=== PATIENT | female | born 1955 | race Caucasian/White ===

== ENCOUNTER 2017-12-07 13:37 | Inpatient (IN) | payer OTHER ==
[~2017-12-07] VITALS: Ht 167.6 cm; Wt 132.1 kg
[~2017-12-07 13:37] MED LIST: ALBU90OI INH; ASPI81CH PO; Bactrim Ds Tab1 EACH PO; CEFP200 PO; CEPH500 PO; Cleocin HCl300 MG PO; DOCU100 PO; Estradiol0.5 MG PO; FAMO20 PO; HORMONE REPLACEMENT PO; K-Dur20 MEQ PO; LACT5TL TOP; LEVFLO500 PO; LEVO750 PO; LEVSOD150 PO; Lasix40 MG PO; Miralax17 GM PO; Mupirocin22 GM TOP; Norco 5-325 Ta1 EACH PO; POTCHL20ER PO; Pepcid20 MG PO; Prednisone20 MG PO; SKIN TREATMENT225 GM TOP; SULTRIDS PO; SYNTHROID25 MCG PO; TIROSINT25 MCG PO; Tylenol325 MG PO; UNNA-FLEX1 EACH TOP; Vibramycin100 MG PO
[2017-12-08 06:08] LABS: BASOPHILS ABSOLUTE AUTO 0.03 K/mm3 (0.00-0.23); BASOPHILS PERCENT AUTO 1 % (0-2); EOSINOPHILS PERCENT AUTO 2 % (0-6); Hematocrit 30.9 % (33.0-51.0); Hemoglobin 9.8 g/dL (11.5-16.0); IMMATURE GRAN ABSOLUTE AUTO 0.01 K/mm3 (0.00-0.10); IMMATURE GRAN PERCENT AUTO 0 % (0-1); LYMPHOCYTES ABSOLUTE AUTO 1.28 K/mm3 (0.84-5.20); LYMPHOCYTES PERCENT AUTO 25 % (21-46); MONOCYTES ABSOLUTE AUTO 0.76 K/mm3 (0.16-1.47); MONOCYTES PERCENT AUTO 15 % (4-13); Mean Corpuscular HGB 29.4 pg (26.0-34.0); Mean Corpuscular HGB Conc 31.7 g/dL (31.5-36.5); Mean Platelet Volume 11.4 fL (9.1-12.4); NEUTROPHILS ABSOLUTE AUTO 3.04 K/mm3 (1.96-9.15); NEUTROPHILS PERCENT AUTO 58 % (41-73); Platelet Count 264 K/mm3 (150-400); RDW Coefficient Variation 15.9 % (11.7-14.2); RDW Standard Deviation 52.7 fL (35.1-46.3); Red Blood Cell Count 3.33 M/mm3 (3.80-5.20); White Blood Cell Count 5.22 K/mm3 (4.00-11.30)
[2017-12-08 06:10] LABS: Mean Corpuscular Volume 93 fL (80-100)
[2017-12-08 06:37] LABS: Anion Gap 8 mmol/L (6-16); Blood Urea Nitrogen 16 mg/dL (8-24); Bun/Creatinine Ratio 21.7 (12.0-20.0); CO2, Blood 28 mmol/L (21-32); Calcium, Blood 8.3 mg/dL (8.5-10.1); Chloride, Blood 111 mmol/L (98-108); Creatinine, Blood 0.74 mg/dL (0.40-1.00); Glomerular Filtration Rate >60 (60-); Glucose, Blood 93 mg/dL (70-99); Potassium, Blood 3.5 mmol/L (3.5-5.5); Sodium, Blood 147 mmol/L (136-145)
[2017-12-10 05:15] LABS: Hematocrit 30.5 % (33.0-51.0); Hemoglobin 9.5 g/dL (11.5-16.0); Mean Corpuscular HGB 28.1 pg (26.0-34.0); Mean Corpuscular HGB Conc 31.1 g/dL (31.5-36.5); Platelet Count 252 K/mm3 (150-400); RDW Coefficient Variation 15.8 % (11.7-14.2); Red Blood Cell Count 3.38 M/mm3 (3.80-5.20); White Blood Cell Count 4.17 K/mm3 (4.00-11.30)
[2017-12-10 05:16] LABS: Mean Corpuscular Volume 90 fL (80-100)
[2017-12-10 05:33] LABS: Anion Gap 7 mmol/L (6-16); Blood Urea Nitrogen 16 mg/dL (8-24); Bun/Creatinine Ratio 20.3 (12.0-20.0); CO2, Blood 29 mmol/L (21-32); Calcium, Blood 8.7 mg/dL (8.5-10.1); Chloride, Blood 107 mmol/L (98-108); Creatinine, Blood 0.79 mg/dL (0.40-1.00); Glomerular Filtration Rate >60 (60-); Glucose, Blood 102 mg/dL (70-99); Potassium, Blood 3.5 mmol/L (3.5-5.5); Sodium, Blood 143 mmol/L (136-145)
[2017-12-12] MEDS ORDERED: Synthroid25 MCG PO (11:01)
[2017-12-12] MEDS ORDERED: FAMO10 PO (11:02)
[2017-12-12] MEDS ORDERED: Lasix40 MG PO (11:02)
[2017-12-12] MEDS ORDERED: Metamucil Smooth1 EA PO (11:03)
[2017-12-12] MEDS ORDERED: Acidophilus La100 GM PO (11:03)
[2017-12-12] MEDS ORDERED: SULFATRIM 800-120 ML PO (11:04)
== END 2017-12-12 13:30 | disposition home health service (06) | DRG 603 ==
LOC: ER 13:37 → MEDS 18:53 → ENPENDDIS 12-12 10:15 → MEDS 12-12 13:30
PROVIDERS: Family Medicine; Internal Medicine
PROC: 3E0234Z Introduction of Serum, Toxoid and Vaccine into Muscle, Percutaneous Approach (ICD-10-PCS; principal; 2017-12-08)
DX: L03.116 Cellulitis of left lower limb (principal); E66.01 Morbid (severe) obesity due to excess calories; E87.0 Hyperosmolality and hypernatremia; Z68.42 Body mass index [BMI] 45.0-49.9, adult; L03.115 Cellulitis of right lower limb; L89.622 Pressure ulcer of left heel, stage 2; Z23 Encounter for immunization; I87.8 Other specified disorders of veins; I89.0 Lymphedema, not elsewhere classified; K59.00 Constipation, unspecified; I87.2 Venous insufficiency (chronic) (peripheral); E89.0 Postprocedural hypothyroidism; D64.9 Anemia, unspecified
CPT/HCPCS: 36415; 73650; 80048; 80053; 82947; 83036; 83605; 84443; 85025; 85027; 86141; 87070; 87077; 87186; 87205; 93970; 96372; 96374; 97110; 97116; 97162; 97166; 97535; 99284; 99285; G8978; G8979; G8987; G8988; J0696; J1650; J1940; J2765; J7030

== ENCOUNTER → 2018-03-05 | Outpatient (CLI) | payer OTHER ==
[~2018-03-05] MED LIST changes: +Acidophilus La100 GM PO; +FAMO10 PO; +Metamucil Smooth1 EA PO; +SULFATRIM 800-120 ML PO; +Synthroid25 MCG PO
== END ==
LOC: LAB SHORT 15:10 → LAB 15:10
DX: L03.115 Cellulitis of right lower limb (principal)
CPT/HCPCS: 87070; 87205

== ENCOUNTER 2018-03-17 10:13 | Inpatient (IN) | payer OTHER ==
[~2018-03-17] VITALS: Ht 167.6 cm; Wt 122.8 kg
[2018-03-17 11:55] LABS: BASOPHILS ABSOLUTE AUTO 0.03 K/mm3 (0.00-0.23); BASOPHILS PERCENT AUTO 1 % (0-2); EOSINOPHILS ABSOLUTE AUTO 0.11 K/mm3 (0.00-0.68); EOSINOPHILS PERCENT AUTO 2 % (0-6); Hematocrit 39.1 % (33.0-51.0); Hemoglobin 12.6 g/dL (11.5-16.0); IMMATURE GRAN ABSOLUTE AUTO 0.02 K/mm3 (0.00-0.10); IMMATURE GRAN PERCENT AUTO 0 % (0-1); LYMPHOCYTES PERCENT AUTO 26 % (21-46); MONOCYTES ABSOLUTE AUTO 0.77 K/mm3 (0.16-1.47); MONOCYTES PERCENT AUTO 12 % (4-13); Mean Corpuscular HGB 27.8 pg (26.0-34.0); Mean Corpuscular HGB Conc 32.2 g/dL (31.5-36.5); Mean Corpuscular Volume 86 fL (80-100); NEUTROPHILS ABSOLUTE AUTO 3.69 K/mm3 (1.96-9.15); NEUTROPHILS PERCENT AUTO 59 % (41-73); Platelet Count 301 K/mm3 (150-400); RDW Coefficient Variation 15.7 % (11.7-14.2); RDW Standard Deviation 49.2 fL (35.1-46.3); Red Blood Cell Count 4.53 M/mm3 (3.80-5.20); White Blood Cell Count 6.22 K/mm3 (4.00-11.30)
[2018-03-17 12:10] LABS: Alanine Aminotransfer (ALT/SGP 35 U/L (12-78); Albumin, Blood 3.7 g/dL (3.4-5.0); Albumin/Globulin Ratio 0.9 (0.8-1.8); Alk Phos 105 U/L (50-136); Anion Gap 7 mmol/L (6-16); Aspartate Aminotrans (AST/SGOT 18 U/L (12-37); Bilirubin, Total 0.4 mg/dL (0.1-1.0); Blood Urea Nitrogen 21 mg/dL (8-24); Bun/Creatinine Ratio 24.4 (12.0-20.0); CO2, Blood 34 mmol/L (21-32); Calcium, Blood 9.5 mg/dL (8.5-10.1); Chloride, Blood 100 mmol/L (98-108); Creatinine, Blood 0.86 mg/dL (0.40-1.00); Globulin, Blood 4.3 g/dL (2.2-4.0); Glomerular Filtration Rate >60 (60-); Glucose, Blood 98 mg/dL (70-99); Potassium, Blood 2.7 mmol/L (3.5-5.5); Sodium, Blood 141 mmol/L (136-145)
[2018-03-17] MEDS ORDERED: POTCHL20ER PO ×2 (13:11→13:13)
[2018-03-18 05:18] LABS: Anion Gap 6 mmol/L (6-16); Blood Urea Nitrogen 17 mg/dL (8-24); Bun/Creatinine Ratio 21.6 (12.0-20.0); CO2, Blood 33 mmol/L (21-32); Calcium, Blood 8.6 mg/dL (8.5-10.1); Chloride, Blood 103 mmol/L (98-108); Creatinine, Blood 0.79 mg/dL (0.40-1.00); Glomerular Filtration Rate >60 (60-); Glucose, Blood 111 mg/dL (70-99); Potassium, Blood 2.8 mmol/L (3.5-5.5); Sodium, Blood 142 mmol/L (136-145)
[2018-03-19 03:35] LABS: Vancomycin, Trough 15.2 ug/mL (5.0-10.0)
[2018-03-20] MEDS ORDERED: LACT5TL TOP (09:35)
[2018-03-20] MEDS ORDERED: DOXY100 PO (09:38)
== END 2018-03-20 10:51 | disposition home or self-care (01) | DRG 603 ==
LOC: ER 10:13 → MEDS 13:59 → ENPENDDIS 03-20 09:00 → MEDS 03-20 10:51
PROVIDERS: Family Medicine; Physician Assistant
DX: L03.115 Cellulitis of right lower limb (principal); Z68.41 Body mass index [BMI] 40.0-44.9, adult; I89.0 Lymphedema, not elsewhere classified; E03.9 Hypothyroidism, unspecified; E11.9 Type 2 diabetes mellitus without complications; Z79.4 Long term (current) use of insulin; I87.8 Other specified disorders of veins
CPT/HCPCS: 36415; 80048; 80053; 80202; 83605; 84132; 85025; 99285; C9113; J1650; J3370; J7050

== ENCOUNTER 2018-06-27 12:06 | Observation (INO) | payer OTHER, SELFPAY ==
[~2018-06-27] VITALS: Ht 167.6 cm; Wt 127.9 kg
[~2018-06-27 12:06] MED LIST changes: +DOXY100 PO
[2018-06-27 13:27] LABS: BASOPHILS ABSOLUTE AUTO 0.04 K/mm3 (0.00-0.23); BASOPHILS PERCENT AUTO 1 % (0-2); EOSINOPHILS ABSOLUTE AUTO 0.11 K/mm3 (0.00-0.68); EOSINOPHILS PERCENT AUTO 2 % (0-6); Hematocrit 36.9 % (33.0-51.0); Hemoglobin 11.7 g/dL (11.5-16.0); IMMATURE GRAN ABSOLUTE AUTO 0.01 K/mm3 (0.00-0.10); IMMATURE GRAN PERCENT AUTO 0 % (0-1); LYMPHOCYTES ABSOLUTE AUTO 1.22 K/mm3 (0.84-5.20); LYMPHOCYTES PERCENT AUTO 25 % (21-46); MONOCYTES ABSOLUTE AUTO 0.64 K/mm3 (0.16-1.47); MONOCYTES PERCENT AUTO 13 % (4-13); Mean Corpuscular HGB 28.8 pg (26.0-34.0); Mean Corpuscular HGB Conc 31.7 g/dL (31.5-36.5); Mean Corpuscular Volume 91 fL (80-100); Mean Platelet Volume 10.9 fL (9.1-12.4); NEUTROPHILS ABSOLUTE AUTO 2.81 K/mm3 (1.96-9.15); NEUTROPHILS PERCENT AUTO 58 % (41-73); Platelet Count 257 K/mm3 (150-400); RDW Coefficient Variation 15.1 % (11.7-14.2); RDW Standard Deviation 50.5 fL (35.1-46.3); Red Blood Cell Count 4.06 M/mm3 (3.80-5.20); White Blood Cell Count 4.83 K/mm3 (4.00-11.30)
[2018-06-27 13:48] LABS: Alanine Aminotransfer (ALT/SGP 29 U/L (12-78); Albumin/Globulin Ratio 0.8 (0.8-1.8); Alk Phos 96 U/L (50-136); Anion Gap 6 mmol/L (6-16); Aspartate Aminotrans (AST/SGOT 21 U/L (12-37); Bilirubin, Total 0.4 mg/dL (0.1-1.0); Blood Urea Nitrogen 20 mg/dL (8-24); Bun/Creatinine Ratio 29.9 (12.0-20.0); CO2, Blood 30 mmol/L (21-32); Calcium, Blood 8.7 mg/dL (8.5-10.1); Chloride, Blood 107 mmol/L (98-108); Creatinine, Blood 0.67 mg/dL (0.40-1.00); Globulin, Blood 3.8 g/dL (2.2-4.0); Glomerular Filtration Rate >60 (60-); Glucose, Blood 93 mg/dL (70-99); Potassium, Blood 3.6 mmol/L (3.5-5.5); Sodium, Blood 143 mmol/L (136-145); Total Protein, Blood 6.8 g/dL (6.4-8.2)
[2018-06-28 05:45] LABS: Anion Gap 7 mmol/L (6-16); Blood Urea Nitrogen 22 mg/dL (8-24); Bun/Creatinine Ratio 26.9 (12.0-20.0); CO2, Blood 33 mmol/L (21-32); Calcium, Blood 9.5 mg/dL (8.5-10.1); Chloride, Blood 101 mmol/L (98-108); Creatinine, Blood 0.82 mg/dL (0.40-1.00); Glomerular Filtration Rate >60 (60-); Glucose, Blood 102 mg/dL (70-99); Potassium, Blood 3.1 mmol/L (3.5-5.5); Sodium, Blood 141 mmol/L (136-145)
== END 2018-06-28 15:42 | disposition home or self-care (01) ==
LOC: ER 12:06 → MEDS 12:07
PROVIDERS: Emergency Medicine; Internal Medicine
DX: I89.0 Lymphedema, not elsewhere classified (principal); I87.8 Other specified disorders of veins; E03.9 Hypothyroidism, unspecified; E11.9 Type 2 diabetes mellitus without complications; E66.01 Morbid (severe) obesity due to excess calories
CPT/HCPCS: 36415; 80048; 80053; 83605; 84145; 85025; 96372; 96374; 96375; 96376; 97110; 97161; 99284-25; G0378; G8978; G8979; G8980; J1650; J1940

== ENCOUNTER → 2018-07-30 | Outpatient (CLI) | payer OTHER, SELFPAY ==
[~2018-07-30] MED LIST changes: +HYDR1TAB94 PO
[2018-07-30 17:02] LABS: BASOPHILS ABSOLUTE AUTO 0.04 K/mm3 (0.00-0.23); BASOPHILS PERCENT AUTO 1 % (0-2); EOSINOPHILS ABSOLUTE AUTO 0.09 K/mm3 (0.00-0.68); EOSINOPHILS PERCENT AUTO 1 % (0-6); Hematocrit 38.3 % (33.0-51.0); Hemoglobin 12.7 g/dL (11.5-16.0); IMMATURE GRAN ABSOLUTE AUTO 0.01 K/mm3 (0.00-0.10); IMMATURE GRAN PERCENT AUTO 0 % (0-1); LYMPHOCYTES ABSOLUTE AUTO 1.49 K/mm3 (0.84-5.20); LYMPHOCYTES PERCENT AUTO 23 % (21-46); MONOCYTES ABSOLUTE AUTO 0.65 K/mm3 (0.16-1.47); MONOCYTES PERCENT AUTO 10 % (4-13); Mean Corpuscular HGB 29.9 pg (26.0-34.0); Mean Corpuscular HGB Conc 33.2 g/dL (31.5-36.5); Mean Corpuscular Volume 90 fL (80-100); Mean Platelet Volume 10.9 fL (9.1-12.4); NEUTROPHILS ABSOLUTE AUTO 4.25 K/mm3 (1.96-9.15); NEUTROPHILS PERCENT AUTO 65 % (41-73); Platelet Count 279 K/mm3 (150-400); RDW Coefficient Variation 14.5 % (11.7-14.2); RDW Standard Deviation 47.6 fL (35.1-46.3); Red Blood Cell Count 4.25 M/mm3 (3.80-5.20); White Blood Cell Count 6.53 K/mm3 (4.00-11.30)
[2018-07-30 17:17] LABS: Alanine Aminotransfer (ALT/SGP 23 U/L (12-78); Albumin, Blood 3.6 g/dL (3.4-5.0); Albumin/Globulin Ratio 0.9 (0.8-1.8); Alk Phos 112 U/L (40-126); Anion Gap 6 mmol/L (6-16); Aspartate Aminotrans (AST/SGOT 17 U/L (12-37); Bilirubin, Total 0.4 mg/dL (0.1-1.0); Blood Urea Nitrogen 18 mg/dL (8-24); Bun/Creatinine Ratio 20.5 (12.0-20.0); CO2, Blood 32 mmol/L (21-32); Calcium, Blood 9.8 mg/dL (8.5-10.1); Chloride, Blood 103 mmol/L (98-108); Creatinine, Blood 0.88 mg/dL (0.40-1.00); Globulin, Blood 4.1 g/dL (2.2-4.0); Glomerular Filtration Rate >60 (60-); Glucose, Blood 96 mg/dL (70-99); Potassium, Blood 3.4 mmol/L (3.5-5.5); Sodium, Blood 141 mmol/L (136-145); Total Protein, Blood 7.7 g/dL (6.4-8.2)
== END | disposition home or self-care (01) ==
LOC: LAB SHORT 16:59 → LAB EV 16:59
PROVIDERS: Physician Assistant
DX: R60.9 Edema, unspecified (principal)
CPT/HCPCS: 80053; 85025

== ENCOUNTER → 2018-08-02 | Outpatient (CLI) | payer OTHER, SELFPAY | LOC: LAB SHORT 17:59 → LAB EV 17:59 | DX: L03.119 Cellulitis of unspecified part of limb (principal) | CPT/HCPCS: 87070; 87205 ==

== ENCOUNTER 2018-08-05 13:26 | Emergency (ER) | payer OTHER, SELFPAY ==
[~2018-08-05] VITALS: Ht 167.6 cm; Wt 113.4 kg
[~2018-08-05 13:26] MED LIST changes: -HYDR1TAB94 PO
[2018-08-05 14:45] LABS: BASOPHILS ABSOLUTE AUTO 0.04 K/mm3 (0.00-0.23); BASOPHILS PERCENT AUTO 1 % (0-2); EOSINOPHILS ABSOLUTE AUTO 0.13 K/mm3 (0.00-0.68); EOSINOPHILS PERCENT AUTO 2 % (0-6); Hematocrit 38.9 % (33.0-51.0); Hemoglobin 12.3 g/dL (11.5-16.0); IMMATURE GRAN ABSOLUTE AUTO 0.01 K/mm3 (0.00-0.10); IMMATURE GRAN PERCENT AUTO 0 % (0-1); LYMPHOCYTES PERCENT AUTO 24 % (21-46); MONOCYTES ABSOLUTE AUTO 0.59 K/mm3 (0.16-1.47); MONOCYTES PERCENT AUTO 11 % (4-13); Mean Corpuscular HGB 29.8 pg (26.0-34.0); Mean Corpuscular HGB Conc 31.6 g/dL (31.5-36.5); Mean Platelet Volume 11.1 fL (9.1-12.4); NEUTROPHILS ABSOLUTE AUTO 3.42 K/mm3 (1.96-9.15); NEUTROPHILS PERCENT AUTO 62 % (41-73); Platelet Count 290 K/mm3 (150-400); RDW Coefficient Variation 14.2 % (11.7-14.2); RDW Standard Deviation 48.8 fL (35.1-46.3); Red Blood Cell Count 4.13 M/mm3 (3.80-5.20); White Blood Cell Count 5.49 K/mm3 (4.00-11.30)
[2018-08-05 14:46] LABS: Mean Corpuscular Volume 94 fL (80-100)
[2018-08-05 15:09] LABS: Alanine Aminotransfer (ALT/SGP 26 U/L (12-78); Albumin, Blood 3.3 g/dL (3.4-5.0); Albumin/Globulin Ratio 0.8 (0.8-1.8); Alk Phos 109 U/L (50-136); Anion Gap 5 mmol/L (6-16); Aspartate Aminotrans (AST/SGOT 20 U/L (12-37); Bilirubin, Total 0.3 mg/dL (0.1-1.0); Blood Urea Nitrogen 16 mg/dL (8-24); Bun/Creatinine Ratio 22.3 (12.0-20.0); CO2, Blood 30 mmol/L (21-32); Calcium, Blood 8.8 mg/dL (8.5-10.1); Chloride, Blood 109 mmol/L (98-108); Creatinine, Blood 0.72 mg/dL (0.40-1.00); Globulin, Blood 4.2 g/dL (2.2-4.0); Glomerular Filtration Rate >60 (60-); Glucose, Blood 80 mg/dL (70-99); Potassium, Blood 3.7 mmol/L (3.5-5.5); Sodium, Blood 144 mmol/L (136-145); Total Protein, Blood 7.5 g/dL (6.4-8.2)
[2018-08-05] MEDS ORDERED: LEVFLO500 PO (15:52)
[2018-08-05] MEDS ORDERED: POTCHL20ER PO (17:40)
[2018-08-05] MEDS ORDERED: HYDR1TAB94 PO (17:40)
[2018-08-05] MEDS ORDERED: Lasix40 MG PO (17:40)
== END 2018-08-05 18:13 | disposition home or self-care (01) ==
LOC: ER 13:26
PROVIDERS: Emergency Medicine
DX: I89.0 Lymphedema, not elsewhere classified (principal); Z91.048 Other nonmedicinal substance allergy status; Z79.899 Other long term (current) drug therapy
CPT/HCPCS: 36415; 80053; 83880; 84145; 85025; 86140; 99284

== ENCOUNTER 2018-10-31 00:20 | Day surgery (SDC) | payer OTHER ==
[~2018-10-31 00:20] MED LIST changes: +HYDR1TAB94 PO
== END 2018-10-31 22:54 | disposition home or self-care (01) ==
LOC: WOUND 00:20
DX: L97.812 Non-pressure chronic ulcer of other part of right lower leg with fat layer exposed (principal); I87.2 Venous insufficiency (chronic) (peripheral); I89.0 Lymphedema, not elsewhere classified

== ENCOUNTER 2018-11-07 15:00 | Day surgery (SDC) | payer OTHER | END 2018-11-07 23:01 | disposition home or self-care (01) | LOC: WOUND 15:00 | DX: L97.812 Non-pressure chronic ulcer of other part of right lower leg with fat layer exposed (principal); I87.2 Venous insufficiency (chronic) (peripheral); I89.0 Lymphedema, not elsewhere classified; E66.01 Morbid (severe) obesity due to excess calories ==

== ENCOUNTER 2018-11-14 14:57 | Day surgery (SDC) | payer OTHER | END 2018-11-14 22:44 | disposition home or self-care (01) | LOC: WOUND 14:57 | DX: L97.812 Non-pressure chronic ulcer of other part of right lower leg with fat layer exposed (principal); I87.2 Venous insufficiency (chronic) (peripheral); I89.0 Lymphedema, not elsewhere classified ==

== ENCOUNTER 2018-11-21 15:00 | Day surgery (SDC) | payer OTHER | END 2018-11-21 22:50 | disposition home or self-care (01) | LOC: WOUND 15:00 | DX: L97.812 Non-pressure chronic ulcer of other part of right lower leg with fat layer exposed (principal); D23.71 Other benign neoplasm of skin of right lower limb, including hip; I87.2 Venous insufficiency (chronic) (peripheral); I89.0 Lymphedema, not elsewhere classified; E66.01 Morbid (severe) obesity due to excess calories ==

== ENCOUNTER 2018-11-28 00:19 | Day surgery (SDC) | payer OTHER | END 2018-11-28 23:59 | disposition home or self-care (01) | LOC: WOUND 00:19 | DX: Z48.00 Encounter for change or removal of nonsurgical wound dressing (principal); L97.812 Non-pressure chronic ulcer of other part of right lower leg with fat layer exposed; I87.2 Venous insufficiency (chronic) (peripheral); I89.0 Lymphedema, not elsewhere classified | CPT/HCPCS: G0463 ==

== ENCOUNTER 2018-12-05 15:00 | Day surgery (SDC) | payer OTHER | END 2018-12-05 22:52 | disposition home or self-care (01) | LOC: WOUND 15:00 | DX: L97.812 Non-pressure chronic ulcer of other part of right lower leg with fat layer exposed (principal); I87.2 Venous insufficiency (chronic) (peripheral); I89.0 Lymphedema, not elsewhere classified; E66.01 Morbid (severe) obesity due to excess calories | CPT/HCPCS: G0463 ==

== ENCOUNTER 2018-12-09 09:03 | Day surgery (SDC) | payer OTHER | END 2018-12-09 22:55 | disposition home or self-care (01) | LOC: WOUND 09:03 | DX: L97.812 Non-pressure chronic ulcer of other part of right lower leg with fat layer exposed (principal); I87.2 Venous insufficiency (chronic) (peripheral); I89.0 Lymphedema, not elsewhere classified; E66.01 Morbid (severe) obesity due to excess calories | CPT/HCPCS: 87070; 87205 ==

== ENCOUNTER 2018-12-12 15:15 | Day surgery (SDC) | payer OTHER | END 2018-12-12 23:17 | disposition home or self-care (01) | LOC: WOUND 15:15 | DX: L97.812 Non-pressure chronic ulcer of other part of right lower leg with fat layer exposed (principal); I87.2 Venous insufficiency (chronic) (peripheral); I89.0 Lymphedema, not elsewhere classified ==

== ENCOUNTER 2018-12-19 10:15 | Day surgery (SDC) | payer OTHER | END 2018-12-19 22:58 | disposition home or self-care (01) | LOC: WOUND 10:15 | PROC: 2W1QX6Z Compression of Right Lower Leg using Pressure Dressing (ICD-10-PCS; principal; 2018-12-19) | DX: L97.812 Non-pressure chronic ulcer of other part of right lower leg with fat layer exposed (principal); I87.2 Venous insufficiency (chronic) (peripheral); I89.0 Lymphedema, not elsewhere classified ==

== ENCOUNTER 2018-12-26 00:26 | Day surgery (SDC) | payer OTHER | END 2018-12-26 22:45 | disposition home or self-care (01) | LOC: WOUND 00:26 | DX: L97.812 Non-pressure chronic ulcer of other part of right lower leg with fat layer exposed (principal); I87.2 Venous insufficiency (chronic) (peripheral); I89.0 Lymphedema, not elsewhere classified ==

== ENCOUNTER 2019-01-02 00:11 | Day surgery (SDC) | payer OTHER | END 2019-01-02 22:43 | disposition home or self-care (01) | LOC: WOUND 00:11 | DX: L97.812 Non-pressure chronic ulcer of other part of right lower leg with fat layer exposed (principal); I87.2 Venous insufficiency (chronic) (peripheral); I89.0 Lymphedema, not elsewhere classified ==

== ENCOUNTER 2019-01-30 00:28 | Day surgery (SDC) | payer OTHER | END 2019-01-30 12:00 | disposition home or self-care (01) | LOC: WOUND 00:28 | DX: I89.0 Lymphedema, not elsewhere classified (principal); L97.812 Non-pressure chronic ulcer of other part of right lower leg with fat layer exposed; I87.2 Venous insufficiency (chronic) (peripheral); D64.9 Anemia, unspecified; J45.909 Unspecified asthma, uncomplicated; E78.5 Hyperlipidemia, unspecified; E66.01 Morbid (severe) obesity due to excess calories; Z68.42 Body mass index [BMI] 45.0-49.9, adult | CPT/HCPCS: 87070; 87205; G0463 ==

== ENCOUNTER 2019-02-06 00:09 | Day surgery (SDC) | payer OTHER | END 2019-02-06 23:00 | disposition home or self-care (01) | LOC: WOUND 00:09 | DX: I87.2 Venous insufficiency (chronic) (peripheral) (principal); I89.0 Lymphedema, not elsewhere classified; L97.819 Non-pressure chronic ulcer of other part of right lower leg with unspecified severity; L97.812 Non-pressure chronic ulcer of other part of right lower leg with fat layer exposed; J45.909 Unspecified asthma, uncomplicated; D64.9 Anemia, unspecified; E78.5 Hyperlipidemia, unspecified; E66.01 Morbid (severe) obesity due to excess calories; Z68.42 Body mass index [BMI] 45.0-49.9, adult ==

== ENCOUNTER 2019-02-13 01:05 | Day surgery (SDC) | payer OTHER | END 2019-02-13 22:47 | disposition home or self-care (01) | LOC: WOUND 01:05 | DX: I83.018 Varicose veins of right lower extremity with ulcer other part of lower leg (principal); L97.812 Non-pressure chronic ulcer of other part of right lower leg with fat layer exposed; E66.01 Morbid (severe) obesity due to excess calories; I89.0 Lymphedema, not elsewhere classified; E78.5 Hyperlipidemia, unspecified; Z68.42 Body mass index [BMI] 45.0-49.9, adult ==

== ENCOUNTER 2019-02-20 10:14 | Day surgery (SDC) | payer OTHER | END 2019-02-20 23:50 | disposition home or self-care (01) | LOC: WOUND 10:14 | DX: I87.2 Venous insufficiency (chronic) (peripheral) (principal); L97.812 Non-pressure chronic ulcer of other part of right lower leg with fat layer exposed; I89.0 Lymphedema, not elsewhere classified; E66.01 Morbid (severe) obesity due to excess calories; E78.5 Hyperlipidemia, unspecified; J45.909 Unspecified asthma, uncomplicated | CPT/HCPCS: G0463 ==

== ENCOUNTER 2019-02-27 10:15 | Day surgery (SDC) | payer OTHER | END 2019-02-27 22:45 | disposition home or self-care (01) | LOC: WOUND 10:15 | DX: I87.2 Venous insufficiency (chronic) (peripheral) (principal); L97.812 Non-pressure chronic ulcer of other part of right lower leg with fat layer exposed; I89.0 Lymphedema, not elsewhere classified; J45.909 Unspecified asthma, uncomplicated; E66.01 Morbid (severe) obesity due to excess calories; E78.5 Hyperlipidemia, unspecified; Z68.42 Body mass index [BMI] 45.0-49.9, adult ==

== ENCOUNTER 2019-03-05 17:38 | Emergency (ER) | payer OTHER ==
[~2019-03-05] VITALS: Ht 167.6 cm; Wt 113.4 kg
[2019-03-05] MEDS ORDERED: Pedi-Dri 100,0060 GM TOP (22:01)
== END 2019-03-05 22:49 | disposition home or self-care (01) ==
LOC: ER 17:38
DX: B37.2 Candidiasis of skin and nail (principal); Z88.8 Allergy status to other drugs, medicaments and biological substances; Z79.899 Other long term (current) drug therapy
CPT/HCPCS: 99282

== ENCOUNTER 2019-03-06 10:21 | Day surgery (SDC) | payer OTHER ==
[~2019-03-06 10:21] MED LIST changes: +Pedi-Dri 100,0060 GM TOP
== END 2019-03-06 23:22 | disposition home or self-care (01) ==
LOC: WOUND 10:21
DX: I89.0 Lymphedema, not elsewhere classified (principal); L97.812 Non-pressure chronic ulcer of other part of right lower leg with fat layer exposed; I87.2 Venous insufficiency (chronic) (peripheral); J45.909 Unspecified asthma, uncomplicated; E78.5 Hyperlipidemia, unspecified; D64.9 Anemia, unspecified; E66.01 Morbid (severe) obesity due to excess calories

== ENCOUNTER 2019-03-13 10:27 | Day surgery (SDC) | payer OTHER | END 2019-03-13 22:45 | disposition home or self-care (01) | LOC: WOUND 10:27 | DX: I89.0 Lymphedema, not elsewhere classified (principal); L97.812 Non-pressure chronic ulcer of other part of right lower leg with fat layer exposed; I87.2 Venous insufficiency (chronic) (peripheral); D64.9 Anemia, unspecified; J45.909 Unspecified asthma, uncomplicated ==

== ENCOUNTER 2019-03-20 00:15 | Day surgery (SDC) | payer OTHER | END 2019-03-20 22:50 | disposition home or self-care (01) | LOC: WOUND 00:15 | DX: L97.812 Non-pressure chronic ulcer of other part of right lower leg with fat layer exposed (principal); I89.0 Lymphedema, not elsewhere classified; I87.2 Venous insufficiency (chronic) (peripheral); E78.5 Hyperlipidemia, unspecified; D64.9 Anemia, unspecified; J45.909 Unspecified asthma, uncomplicated; E66.01 Morbid (severe) obesity due to excess calories; Z68.42 Body mass index [BMI] 45.0-49.9, adult ==

== ENCOUNTER 2019-03-27 00:22 | Day surgery (SDC) | payer OTHER | END 2019-03-27 22:45 | disposition home or self-care (01) | LOC: WOUND 00:22 | DX: I89.0 Lymphedema, not elsewhere classified (principal); L97.812 Non-pressure chronic ulcer of other part of right lower leg with fat layer exposed; I87.2 Venous insufficiency (chronic) (peripheral); J45.909 Unspecified asthma, uncomplicated; E78.5 Hyperlipidemia, unspecified; D64.9 Anemia, unspecified; E66.01 Morbid (severe) obesity due to excess calories; Z68.42 Body mass index [BMI] 45.0-49.9, adult ==

== ENCOUNTER 2019-04-03 00:45 | Day surgery (SDC) | payer OTHER | END 2019-04-03 23:20 | disposition home or self-care (01) | LOC: WOUND 00:45 | DX: L97.811 Non-pressure chronic ulcer of other part of right lower leg limited to breakdown of skin (principal); I89.0 Lymphedema, not elsewhere classified; I87.2 Venous insufficiency (chronic) (peripheral); D36.9 Benign neoplasm, unspecified site; D64.9 Anemia, unspecified; J45.909 Unspecified asthma, uncomplicated | CPT/HCPCS: G0463 ==

== ENCOUNTER 2019-04-10 00:21 | Day surgery (SDC) | payer OTHER | END 2019-04-10 23:12 | disposition home or self-care (01) | LOC: WOUND 00:21 | DX: L97.821 Non-pressure chronic ulcer of other part of left lower leg limited to breakdown of skin (principal); I89.0 Lymphedema, not elsewhere classified; I87.2 Venous insufficiency (chronic) (peripheral) | CPT/HCPCS: G0463 ==

== ENCOUNTER 2020-05-10 19:45 | Inpatient (IN) | payer OTHER ==
[~2020-05-10] VITALS: Ht 167.6 cm; Wt 126.8 kg
[2020-05-10] MEDS ORDERED: EUTHYROX25 MC1 PO (19:55)
[2020-05-10 20:07] LABS: BASOPHILS ABSOLUTE AUTO 0.03 K/mm3 (0.00-0.23); BASOPHILS PERCENT AUTO 0 % (0-2); EOSINOPHILS ABSOLUTE AUTO 0.03 K/mm3 (0.00-0.68); EOSINOPHILS PERCENT AUTO 0 % (0-6); Hemoglobin 15.8 g/dL (11.5-16.0); IMMATURE GRAN ABSOLUTE AUTO 0.03 K/mm3 (0.00-0.10); IMMATURE GRAN PERCENT AUTO 0 % (0-1); LYMPHOCYTES ABSOLUTE AUTO 0.89 K/mm3 (0.84-5.20); LYMPHOCYTES PERCENT AUTO 8 % (21-46); MONOCYTES ABSOLUTE AUTO 0.92 K/mm3 (0.16-1.47); MONOCYTES PERCENT AUTO 8 % (4-13); Mean Corpuscular HGB 30.8 pg (26.0-34.0); Mean Corpuscular HGB Conc 31.6 g/dL (31.5-36.5); Mean Corpuscular Volume 98 fL (80-100); Mean Platelet Volume 10.8 fL (9.1-12.4); NEUTROPHILS ABSOLUTE AUTO 9.76 K/mm3 (1.96-9.15); NEUTROPHILS PERCENT AUTO 84 % (41-73); Platelet Count 321 K/mm3 (150-400); RDW Coefficient Variation 14.2 % (11.7-14.2); RDW Standard Deviation 51.9 fL (35.1-46.3); Red Blood Cell Count 5.13 M/mm3 (3.80-5.20); White Blood Cell Count 11.66 K/mm3 (4.00-11.30)
[2020-05-10 20:25] LABS: Alanine Aminotransfer (ALT/SGP 32 U/L (12-78); Albumin, Blood 3.3 g/dL (3.4-5.0); Albumin/Globulin Ratio 0.7 (0.8-1.8); Alk Phos 129 U/L (50-136); Anion Gap 6 mmol/L (6-16); Aspartate Aminotrans (AST/SGOT 27 U/L (12-37); Bilirubin, Total 0.8 mg/dL (0.1-1.0); Blood Urea Nitrogen 27 mg/dL (8-24); Bun/Creatinine Ratio 31.7 (12.0-20.0); CO2, Blood 29 mmol/L (21-32); Calcium, Blood 9.9 mg/dL (8.5-10.1); Chloride, Blood 104 mmol/L (98-108); Creatinine, Blood 0.85 mg/dL (0.40-1.00); Globulin, Blood 4.8 g/dL (2.2-4.0); Glomerular Filtration Rate >60 (60-); Glucose, Blood 142 mg/dL (70-99); Potassium, Blood 4.3 mmol/L (3.5-5.5); Sodium, Blood 139 mmol/L (136-145); Total Protein, Blood 8.1 g/dL (6.4-8.2)
--- NOTE | 2020-05-10 22:59 | NUR ---
transfer report from [facility] ORTHOPEDIC PHYSICIAN on 65 year old Female being admitted with SBO to DR Issac Mcbride for possible surgury to tx. NPO no ng tube placed yet by ORTHOPEDIC PHYSICIAN said PT discussing tx with Son? PT had abd CT in ER showed SBO from ventral hernia. 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 Will place in contact isolation swab for MRSA as no recent screens seen in EMR. Await admission with NPO status, IVF & ambriz management.
[2020-05-10] MEDS ORDERED: Synthroid200 MCG PO (23:56)
[2020-05-11 04:35] LABS: BASOPHILS ABSOLUTE AUTO 0.03 K/mm3 (0.00-0.23); BASOPHILS PERCENT AUTO 0 % (0-2); EOSINOPHILS ABSOLUTE AUTO 0.03 K/mm3 (0.00-0.68); EOSINOPHILS PERCENT AUTO 0 % (0-6); Hematocrit 42.3 % (33.0-51.0); Hemoglobin 13.5 g/dL (11.5-16.0); IMMATURE GRAN ABSOLUTE AUTO 0.04 K/mm3 (0.00-0.10); IMMATURE GRAN PERCENT AUTO 0 % (0-1); LYMPHOCYTES PERCENT AUTO 6 % (21-46); MONOCYTES ABSOLUTE AUTO 1.11 K/mm3 (0.16-1.47); MONOCYTES PERCENT AUTO 9 % (4-13); Mean Corpuscular HGB 31.3 pg (26.0-34.0); Mean Corpuscular HGB Conc 31.9 g/dL (31.5-36.5); Mean Corpuscular Volume 98 fL (80-100); Mean Platelet Volume 10.7 fL (9.1-12.4); NEUTROPHILS ABSOLUTE AUTO 9.91 K/mm3 (1.96-9.15); NEUTROPHILS PERCENT AUTO 84 % (41-73); Platelet Count 267 K/mm3 (150-400); RDW Coefficient Variation 14.5 % (11.7-14.2); RDW Standard Deviation 52.7 fL (35.1-46.3); Red Blood Cell Count 4.32 M/mm3 (3.80-5.20); White Blood Cell Count 11.82 K/mm3 (4.00-11.30)
[2020-05-11 04:51] LABS: Anion Gap 4 mmol/L (6-16); Blood Urea Nitrogen 24 mg/dL (8-24); Bun/Creatinine Ratio 35.8 (12.0-20.0); CO2, Blood 29 mmol/L (21-32); Calcium, Blood 8.5 mg/dL (8.5-10.1); Chloride, Blood 108 mmol/L (98-108); Creatinine, Blood 0.67 mg/dL (0.40-1.00); Glomerular Filtration Rate >60 (60-); Glucose, Blood 124 mg/dL (70-99); Potassium, Blood 4.4 mmol/L (3.5-5.5); Sodium, Blood 141 mmol/L (136-145)
--- NOTE | 2020-05-11 04:59 | NUR ---
PT admitted with SBO caused by large reducable ventra;l hernia. NPO NG # 14 fr placed to low intermittant sx with 600 ml thick brown gi contents initally. decreased abd pain with NG placement. Medicated x 1 for abd pain 8/ with helpful effect. PT has hx of MRSA & has bilat le weeping wounds present on admission. PT had wrapped bilat le in chuk prior to admission, Paged DR Hopkins for orders for wound care & swab to rule out MRSA. Await orders.
--- NOTE | 2020-05-11 08:01 | NUR ---
CALL TO DR. SCOTT. CALL MADE TO DR. SCOTT. DR. SCOTT STATED HE DOES NOT WANT A HOSPITALIST TO MANAGE MEDS. TO CALL BACK AFTER SURGERY TO CLARIFY HOME MEDS. WILL CONTINUE TO MONITOR.
--- NOTE | 2020-05-11 12:46 | NUR ---
PT TAKEN TO DAY SURGERY PT TAKEN TO DAY SURGERY BY ADRI FREEMAN. PT SON UPDATED ON PT CONDITION AND THAT SHE IS GOING TO SURGERY. PT RULED OUT NEG FOR COVID. BELONGINGS PACKED UP IN ROOM. AWAITING NEW ROOM ASSIGNMENT.
--- NOTE | 2020-05-11 12:58 | NUR ---
INTO [facility] VIA [facility]. History, Chart, Medications and Allergies reviewed before start of procedure.Patient confirms NPO status and agrees with scheduled surgery. Surgical site prepped with 2% Chlorhexidine cloth wipe. Lungs clear T/O to Auscultation. NG TUBE PATENT AND HOOKED TO INTERMITTENT SUCTION. BILATERAL DRESSINGS IN PLACE TO LOWER EXTREMITIES RELATED TO WOUNDS.
--- NOTE | 2020-05-11 14:10 | NUR ---
REPORT GIVEN TO VALERY RUSH
--- NOTE | 2020-05-11 14:18 | NUR ---
REPORT GIVEN TO SURGIAL NURSE, MARK TSANG.
--- NOTE | 2020-05-11 15:47 | NUR ---
PT JESUSITA UPDATED ON NEW ROOM ASSIGNMENT, 209.
--- NOTE | 2020-05-11 17:47 | NUR ---
05/11/20 174 Azucena Hernandez STOCKINGS NOT ON PT DUE TO OPEN BILATERAL LEG WOUNDS
[2020-05-12 04:16] LABS: BASOPHILS ABSOLUTE AUTO 0.03 K/mm3 (0.00-0.23); BASOPHILS PERCENT AUTO 0 % (0-2); EOSINOPHILS ABSOLUTE AUTO 0.02 K/mm3 (0.00-0.68); EOSINOPHILS PERCENT AUTO 0 % (0-6); Hematocrit 44.3 % (33.0-51.0); Hemoglobin 13.4 g/dL (11.5-16.0); IMMATURE GRAN ABSOLUTE AUTO 0.02 K/mm3 (0.00-0.10); IMMATURE GRAN PERCENT AUTO 0 % (0-1); LYMPHOCYTES ABSOLUTE AUTO 0.51 K/mm3 (0.84-5.20); LYMPHOCYTES PERCENT AUTO 6 % (21-46); MONOCYTES ABSOLUTE AUTO 0.96 K/mm3 (0.16-1.47); MONOCYTES PERCENT AUTO 10 % (4-13); Mean Corpuscular HGB 30.9 pg (26.0-34.0); Mean Corpuscular HGB Conc 30.2 g/dL (31.5-36.5); Mean Corpuscular Volume 102 fL (80-100); Mean Platelet Volume 10.7 fL (9.1-12.4); NEUTROPHILS ABSOLUTE AUTO 7.72 K/mm3 (1.96-9.15); NEUTROPHILS PERCENT AUTO 83 % (41-73); Platelet Count 255 K/mm3 (150-400); RDW Coefficient Variation 14.6 % (11.7-14.2); RDW Standard Deviation 55.9 fL (35.1-46.3); Red Blood Cell Count 4.34 M/mm3 (3.80-5.20); White Blood Cell Count 9.26 K/mm3 (4.00-11.30)
--- NOTE | 2020-05-12 04:22 | NUR ---
SHIFT SUMMARY POD 1 EX LAP WITH LYSIS OF ADHESIONS AND HERNIA REPAIR WITH MESH PT AA0X4, PT REPORTS FEELING BLOATED T/O SHIFT WITH SOME DIFFICULTY BREATHING R/T BLOATING. SATS ABOVE 92% DURING SHIFT. TITRATED DOWN TO 2L VIA NC FROM 4L. MEDICATION CHANGED PT STATES BETTER PAIN RELIEF WITH DILAUDID. STILL C/O BLOATED FEELING. NG ON WITH LIS, PT REPORTED NAUSEA BEFORE CONNECTED, BETTER SINCE. BETSY PATENT AND DRAINING PICCO INTACT. DRESSINGS TO FEET CHANGED X1, PT DECLINED BEING CHANGED A SECOND TIME. YODER PATENT AND DRAINING. FLUIDS INFUSING T/O SHIFT. PT UP TO CHAIR WITH 1/SBY ASSIST AND FWW.
[2020-05-12 04:32] LABS: Anion Gap 5 mmol/L (6-16); Blood Urea Nitrogen 19 mg/dL (8-24); Bun/Creatinine Ratio 28.7 (12.0-20.0); CO2, Blood 27 mmol/L (21-32); Calcium, Blood 7.9 mg/dL (8.5-10.1); Chloride, Blood 111 mmol/L (98-108); Creatinine, Blood 0.66 mg/dL (0.40-1.00); Glomerular Filtration Rate >60 (60-); Glucose, Blood 119 mg/dL (70-99); Potassium, Blood 3.8 mmol/L (3.5-5.5); Sodium, Blood 143 mmol/L (136-145)
--- NOTE | 2020-05-12 07:45 | NUR ---
pt assisted into bed stated pain was 6/10 to abd feels "bloated" discussed with pt it may be a few days before she passes gas pt has ngt to low int sx pt stated dr wilson this am said she could have a popsicle
--- NOTE | 2020-05-12 10:15 | NUR ---
dressing applied to lower legs bilat pt assisted to recliner chair pt stated laying down it felt like she could not take deep breaths pt given pain meds earlier discussed weaning o2 but her sat dec to 92% on 2 l nc inc to 3 l
--- NOTE | 2020-05-12 12:50 | NUR ---
PT HAS HER LEG DOWN SITTING UPRIGHT IN RECLINER STATED IT FEELS BETTER SITTING UPRIGHT VS HER LEGS UP PT REQ A POPSICLE NEW CANNISTER PLACED ICE CHIPS ONLY
--- NOTE | 2020-05-12 14:53 | NUR ---
pt stated she wants to still sit up for awhile had me open the blinds req pain meds 0.5 mg dilaudid given pt also asked if she can drink more the last water given she drank rapidly and had abd pain and bloating encouraged pt to sip slowly instead earlier gave pt a cup of ice chips and popsicle pt stated she hugo that well
--- NOTE | 2020-05-12 16:51 | NUR ---
PT VISITING WITH HER SON
--- NOTE | 2020-05-12 17:35 | NUR ---
pt wanting to try and amb after her son goes home
[2020-05-12 20:48] LABS: Vancomycin, Trough 13.3 ug/mL (5.0-10.0)
--- NOTE | 2020-05-13 04:12 | NUR ---
SHIFT SUMMARY POD 2 EX LAP WITH LYSIS OF ADHESIONS AND HERNIA REPAIR AA0X4, PICCO DRESSING CDI GREEN LIGHT FLASHING. PT REPORTS GAS PAIN FEELING BETTER T/O SHIFT. MEDICATED FOR PAIN PER EMAR. REPORTING PAIN OF 4 OR 5. TOLERATED ROOM AIR FOR PART OF SHIFT WITH SATS ABOVE 94, NEEDED TO BE PLACED ON 2L AFTER RECEIVING PAIN MEDS. NG TUBE DRAINING A LOT, MOST APPEARS TO BE POPSICLES AND WATER THAT PT HAS BEEN REQUESTING. ATTEMPTED TO EDUCATED PT ON NG TUBE PULLING LIQUIDS RIGHT OUT, AND NEED FOR BOWEL REST. PT CONTINUED TO ASK FOR WATER. PT ABLE TO TRANSFER FROM CHAIR TO BED WELL. FWW USED. DRESSINGS CHANGED ON BLE, CONTINUES TO WEEP.
--- NOTE | 2020-05-13 06:30 | NUR ---
EDEMA NOTICED SIGNIFICANT INCREASE IN EDEMA T/O PATIENTS ENTIRE BODY. HAD TO REMOVE ARM BANDS HER UPPER EXTREMETIES WERE SWOLLEN, HER LOWER EXTREMETIES CONTINUE TO WEEP AND ARE "HEAVIER" PER PT. STANDING WEIGHT OBTAINED. PT DENIES SOB. LUNGS SOUNDED CLEAR IN ALL MCCOY. IV DC'D, INCREASE IN EDEMA CAUSED IV TO START LEAKING. PLAN TO NOTIFY NEXT SHIFT AND ALERT DOCTOR DURING ROUNDS.
--- NOTE | 2020-05-13 07:50 | NUR ---
recvd report from previous shift ADIR Benito, pt awake in bed, appears to be unhappy, states the "ppl have been mean to me". When questioned about specifics, pt states the nursing staff has told her she cannot have water/popscicles/ice chips. per MD order, pt may have minimal ice chips, which she was provided. (per Dr Mcbride, pt may have one small cup ice chips every 4 hours) Pt educated on the process/judgement behind not allowing ample ice chips/popscicles/water. Pt also c/o "heaviness" in BLE. Generalized edema in BLE with 6.6" standing weight gain from admission. Dr Mcbride notified, hospitalist consult called for treatment of fluid retention/weight gain. No IV access at this time, power glide to be inserted this AM.
--- NOTE | 2020-05-13 08:20 | NUR ---
paramedic supervisor Vanessa inserted peripheral power glid ARMAND. Pt educated extensively on the rationale for the power glide and the need for IV medications/therapy, educated on Lasix ordered and expected clinical outcome.
--- NOTE | 2020-05-13 09:15 | NUR ---
UNDERGROUND HEAVY EQUIPMENT OPERATOR reported that pt told the UNDERGROUND HEAVY EQUIPMENT OPERATOR she "did not like her" and that the UNDERGROUND HEAVY EQUIPMENT OPERATOR was "mean to her" when the pt requested more ice chips/popsicle and requested UNDERGROUND HEAVY EQUIPMENT OPERATOR change/loosen her leg dressings. UNDERGROUND HEAVY EQUIPMENT OPERATOR responded that pt was not supposed to have more than 1 cup of ice chips every 4 hrs, and that the UNDERGROUND HEAVY EQUIPMENT OPERATOR was not allowed to change/loosen dressing.
--- NOTE | 2020-05-13 10:09 | NUR ---
per pt's request, this RN assess leg wraps, which were changed yesterday. the wraps did not appear to be too tight. pt stated the wraps felt wet. This RN removed dressings, cleaned BLE wound areas with wound frame cleaner, applied new dressings with ABD pads, kerlex gauze to BLE.
[2020-05-13 11:36] LABS: Free Thyroxine 1.1 ng/dL (0.70-1.60)
[2020-05-13 11:47] LABS: Thyroid Stimulating Hormone 3.52 uIU/mL (0.360-4.800)
--- NOTE | 2020-05-13 15:55 | NUR ---
dr steve marin in pt
--- NOTE | 2020-05-13 18:40 | NUR ---
SHIFT SUMMARY: VSS, NO ACUTE CHANGES. PT TOLERATING ICE CHIPS 1 SMALL CUP X [address] SCOTT. PT AMBULATED IN HALLWAY WITH FWW AND STANDBY ASSIST. PT RECEIVED IV DIURETC X 2 WITH >3L OUT IN YODER CLEAR YELLOW URINE. PT DENIES PAIN WHEN ASSESS T/O SHIFT. PT IN ROOM AIR WITH SPO2> 92% T/O SHIFT. PT REQUIRES REPEATED ENCOURAGEMENT/MOTIVATION TO PERFORM ADLS, GET OOB AND AMBULATE. NO FLATUS THIS SHIFT. NG TUBE REMOVED PER ORDERS, PT DENIES N/V. PT WITH STATEMENTS WHICH DISPLAY MILD PARANOIA. (IE: WHEN DISCUSSED THE WOUNDS AND WHY THE PT HAS STOPPED GOING TO WOUND CLINIC, PT REPORTS THAT SHE BELIEVES THE NURSES THERE TOLD THE DOCTOR THE PT DID NOT LIKE HER; THAT THE ACADEMIC SERVICES PROFESSIONAL THIS SHIFT WAS BEING UNKIND BECAUSE THE SHE DID NOT LIKE HER.)
--- NOTE | 2020-05-14 03:58 | NUR ---
SHIFT SUMMARY LYING IN SEMI FOWLERS WITH EYES OPEN. HAS TAKEN SMALL NAPS THROUGHOUT SHIFT. SLEEP STUDY COMPLETED BY RT. AMBULATED IN HALLWAY AT START OF SHIFT WITH Markel JANSEN RN WHO IS PT'S GRAND DAUGHTER, TOLERATED WELL. GIVEN AN OIL FLEETS ENEMA PER ORDERS. HARD GOLF BALL SIZED BM NOTED. DRESSINGS TO BLE CHANGED. SKIN CLEANED WITH DERMAL WOUND CLEANSER, ORANGE OINTMENT PLACED TO HARD THICKENED AREAS. MOIST AREAS DRIED AND EXUDRY PLACED OVER THEM. KERLIX WRAPPED AROUND THE CALF AND COVERED WITH CULLEN WRAP. DENIES PAIN, DISCOMFORT, OR FURTHER NEEDS AT THIS TIME. SAFETY MEASURES IN PLACE. WILL CONTINUE TO MONITOR AND GIVE HAND OFF TO ONCOMING SHIFT USING SBAR DURING BEDSIDE REPORT.
[2020-05-14 05:19] LABS: Anion Gap 7 mmol/L (6-16); Blood Urea Nitrogen 16 mg/dL (8-24); Bun/Creatinine Ratio 23.8 (12.0-20.0); CO2, Blood 32 mmol/L (21-32); Calcium, Blood 8.4 mg/dL (8.5-10.1); Chloride, Blood 105 mmol/L (98-108); Creatinine, Blood 0.67 mg/dL (0.40-1.00); Glomerular Filtration Rate >60 (60-); Glucose, Blood 99 mg/dL (70-99); Potassium, Blood 2.9 mmol/L (3.5-5.5); Sodium, Blood 144 mmol/L (136-145)
--- NOTE | 2020-05-14 15:22 | NUR ---
echocardiogram complete
--- NOTE | 2020-05-14 17:36 | NUR ---
SUMMARY AMBULATED IN [place] X3 WITH STANDBY ASSIST, STEADY ON FEET THOUGH REPORTS BILAT LEGS PAINFUL WITH AMBULATION. LEGS EDEMATOUS BUT PT REPORTS THEY ARE MUCH LESS SWOLLEN THEN YESTERDAY. BILAT LOWER LEG DRESSINGS DRY AND INTACT. PT REPORTS FEELING BLOATED DENIES BELCHING OR PASSSING FLATUS. PT REPORTS MOST COMFORTABLE SITTING IN CHAIR. K RIDER INFUSING AT THIS TIME
--- NOTE | 2020-05-15 05:19 | NUR ---
ASSUMED CARE OF PATIENT AT 1915. PATIENT POST OP DAY 3 OF HERNIA REPAIR WITH MIDLINE INCISION. SLIGHT SEROSANGUINEOUS DRAINAGE NOTED. DRAIN IN PLACE. PATIENT REQUESTING FOODS AND DRINKS DESPITE BEING EDUCATED ON NEED FOR BOWEL REST. PATIENT AMBULATES AROUND THE UNIT X1 ASSIST WITHOUT NEED FOR ENCOURAGEMENT. YODER IN PLACE. MIDLINE CATHETER IN PLACE AND FLUSHING, NO BLOOD RETURN. PHELBOTOMY CALLED TO DRAW MORNING LABS. VSS, CALL LIGHT WITHIN REACH, BED LOWERED TO LOWEST POSITION. WILL CONTINUE TO MONITOR UNTIL END OF SHIFT.
[2020-05-15 06:38] LABS: Anion Gap 6 mmol/L (6-16); Blood Urea Nitrogen 19 mg/dL (8-24); Bun/Creatinine Ratio 28.4 (12.0-20.0); CO2, Blood 33 mmol/L (21-32); Calcium, Blood 8.3 mg/dL (8.5-10.1); Chloride, Blood 106 mmol/L (98-108); Creatinine, Blood 0.67 mg/dL (0.40-1.00); Glomerular Filtration Rate >60 (60-); Glucose, Blood 86 mg/dL (70-99); Potassium, Blood 2.9 mmol/L (3.5-5.5); Sodium, Blood 145 mmol/L (136-145)
--- NOTE | 2020-05-15 16:27 | NUR ---
DRESSINGS CHANGED TO BLE WITH ASSIST FROM OTHER RN.
--- NOTE | 2020-05-15 16:38 | NUR ---
SHIFT SUMMARY PT DIET INCREASED TO C.L. TODAY. PT TOLERATING WELL. PT BEBA MARTINEZ'Heri THIS AFTERNOON, PT UP TO USE RESTROOM NOW. PT BEEN ASSISTED WITH ADL'S PRN. PT TOOK SHOWER TODAY. NEW DRESSINGS PLACED TO BLE PER PT REQ WITH ASSIST FROM OTHER RN I.O.. PT REPOSITIONING SELF IN BED. PT REPORTS WANTING TO SIT IN CHAIR AFTER USING RESTROOM.
--- NOTE | 2020-05-15 20:39 | NUR ---
1945 PT OBSERVED AMBULATING IN HALLWAY X 1 STANDBY ASSIST; GAIT SLOW AND STEADY; ABD DWAIN DRESSING HAS SCANT OLD DRIED RED DRAINAGE NOTED; BETSY HAS NO DRAINAGE WITH INSERTION SITE DRESSING REPLACED WITH 2 X 2 AND OPSITE DRESSING BY THIS NURSE; PTS BILATERAL LOWER EXTREMITY GAUZE DRESSINGS ARE DRY AND INTACT; PT VOIDED 100ML CLEAR YELLOW FLUID AFTER AMBULATION WITH LYN SLAUGHTER; ALERT AND ORIENTED X 4.
--- NOTE | 2020-05-16 04:32 | NUR ---
SHIFT SUMMARY: 65 Y/O OBESE FEMALE HAD RESTLESS NIGHT AT TIMES WITH MINIMAL SLEEP RECEIVED; PT DECLINES TO TAKE ANY NARCOTICS FOR ABD PAIN AND FEELS THAT THEY MAKE HER CONSTIPATED TOO MUCH AND THEY DON'T WORK; PT VOIDING CLEAR YELLOW FLUID AFTER YODER REMOVAL 05/15/20; BETSY HAS SCANT RED DRAINAGE NOTED; ABD DWAIN DRESSING INTACT; PT ALERT AND ORIENTED X 4 WITH MODERATE ANXIETY NOTED AT TIMES WITH VALIUM 2.5MG IVP X1 GIVEN WITH SLIGHT AFFECT; PT ABLE TO AMBULATE IN ROOM AND HALLWAY WITH GAIT SLOW AND STEADY X 1 STANDBY ASSIST; BED LOW POSTION WITH CALL LIGHT AT SIDE.
[2020-05-16 04:36] LABS: Anion Gap 4 mmol/L (6-16); Blood Urea Nitrogen 16 mg/dL (8-24); Bun/Creatinine Ratio 27.4 (12.0-20.0); CO2, Blood 32 mmol/L (21-32); Calcium, Blood 8.1 mg/dL (8.5-10.1); Chloride, Blood 108 mmol/L (98-108); Creatinine, Blood 0.58 mg/dL (0.40-1.00); Glomerular Filtration Rate >60 (60-); Glucose, Blood 99 mg/dL (70-99); Magnesium, Blood 1.8 mg/dL (1.6-2.4); Sodium, Blood 144 mmol/L (136-145)
--- NOTE | 2020-05-16 10:53 | NUR ---
DISCUSSED PT'S STATUS WITH DR HERNDON.
--- NOTE | 2020-05-16 13:21 | NUR ---
DR VICTORIA TO SEE PT. DISCUSSED PT'S STATUS.
--- NOTE | 2020-05-16 17:00 | NUR ---
SHIFT SUMMARY PT TOLERATING DIET BETTER THIS AFTERNOON. PT VOIDING. PT BEEN UP TO CHAIR MOST OF DAY, ALTHOUGH PT DID TAKE A NAP TODAY IN BED. PT BEEN UP AND AMBULATED IN HALLWAY. PT BEEN ASSISTED WITH ADL'S PRN. HAD BM. ENC AMBULATION. MARIUM SALES TO SEE PT.
[2020-05-17 04:28] LABS: BASOPHILS ABSOLUTE AUTO 0.04 K/mm3 (0.00-0.23); BASOPHILS PERCENT AUTO 1 % (0-2); EOSINOPHILS ABSOLUTE AUTO 0.27 K/mm3 (0.00-0.68); EOSINOPHILS PERCENT AUTO 5 % (0-6); Hematocrit 40.2 % (33.0-51.0); Hemoglobin 12.7 g/dL (11.5-16.0); IMMATURE GRAN ABSOLUTE AUTO 0.02 K/mm3 (0.00-0.10); IMMATURE GRAN PERCENT AUTO 0 % (0-1); LYMPHOCYTES ABSOLUTE AUTO 1.17 K/mm3 (0.84-5.20); LYMPHOCYTES PERCENT AUTO 22 % (21-46); MONOCYTES ABSOLUTE AUTO 0.57 K/mm3 (0.16-1.47); MONOCYTES PERCENT AUTO 11 % (4-13); Mean Corpuscular HGB 31.4 pg (26.0-34.0); Mean Corpuscular HGB Conc 31.6 g/dL (31.5-36.5); Mean Corpuscular Volume 100 fL (80-100); Mean Platelet Volume 11.9 fL (9.1-12.4); NEUTROPHILS ABSOLUTE AUTO 3.29 K/mm3 (1.96-9.15); NEUTROPHILS PERCENT AUTO 62 % (41-73); Platelet Count 268 K/mm3 (150-400); RDW Coefficient Variation 14.2 % (11.7-14.2); RDW Standard Deviation 51.8 fL (35.1-46.3); Red Blood Cell Count 4.04 M/mm3 (3.80-5.20); White Blood Cell Count 5.36 K/mm3 (4.00-11.30)
[2020-05-17 04:48] LABS: Anion Gap 5 mmol/L (6-16); Blood Urea Nitrogen 16 mg/dL (8-24); Bun/Creatinine Ratio 25.6 (12.0-20.0); CO2, Blood 31 mmol/L (21-32); Calcium, Blood 8.6 mg/dL (8.5-10.1); Chloride, Blood 107 mmol/L (98-108); Creatinine, Blood 0.63 mg/dL (0.40-1.00); Glomerular Filtration Rate >60 (60-); Glucose, Blood 107 mg/dL (70-99); Potassium, Blood 3.2 mmol/L (3.5-5.5); Sodium, Blood 143 mmol/L (136-145)
--- NOTE | 2020-05-17 05:14 | NUR ---
SHIFT SUMMARY PT IS A/O X4. IND. IN ROOM. PT IS VOIDING AND TOLERATING PO INTAKE W/O NAUSEA. PT HAS BEEN AMBULATING IN ROOM AND UP TO CHAIR DURING THE SHIFT. PT HAS DENIED PAIN DURING THE NIGHT. VSS. NO ACUTE CHANGES OVERNIGHT.
--- NOTE | 2020-05-17 12:30 | NUR ---
ASSUMED CARE OF PT
--- NOTE | 2020-05-18 00:52 | NUR ---
PT C/O CONSTIPATION ALTHOUGH BMS DOCUMENTED.PT REFUSING FLEETS OR SUPPOS. VERB SHE IS NEEDING TO MOVE THINGS DOWN FROM ABOVE.PT WAS GIVEN WARM PRUNE JUICE WITH BUTTER.PT CALLED FROM BATHROOM WITH C/O RECTAL BLEEDING FROM HER " HEMORRHOIDS" TOILET APPEARING FILLED WITH ROBIN BLEED AND DARKNESS FURTHER IN BOWL. UNABLE TO DETERMINE IF PT ACTUALLY PASSED BM OR CLOTS.PT IS ON LOVENOX. HAS BMP ORDERED THIS AM, BUT NO CBC. I CALLED DR BAINS AND ADVISED OF ABOVE. CBC ORDERED.
[2020-05-18 01:00] LABS: BASOPHILS ABSOLUTE AUTO 0.05 K/mm3 (0.00-0.23); BASOPHILS PERCENT AUTO 1 % (0-2); EOSINOPHILS ABSOLUTE AUTO 0.25 K/mm3 (0.00-0.68); EOSINOPHILS PERCENT AUTO 4 % (0-6); Hematocrit 40.9 % (33.0-51.0); Hemoglobin 12.9 g/dL (11.5-16.0); IMMATURE GRAN ABSOLUTE AUTO 0.01 K/mm3 (0.00-0.10); IMMATURE GRAN PERCENT AUTO 0 % (0-1); LYMPHOCYTES ABSOLUTE AUTO 1.24 K/mm3 (0.84-5.20); LYMPHOCYTES PERCENT AUTO 21 % (21-46); MONOCYTES ABSOLUTE AUTO 0.49 K/mm3 (0.16-1.47); MONOCYTES PERCENT AUTO 8 % (4-13); Mean Corpuscular HGB 30.7 pg (26.0-34.0); Mean Corpuscular HGB Conc 31.5 g/dL (31.5-36.5); Mean Corpuscular Volume 97 fL (80-100); Mean Platelet Volume 11.1 fL (9.1-12.4); NEUTROPHILS ABSOLUTE AUTO 3.89 K/mm3 (1.96-9.15); NEUTROPHILS PERCENT AUTO 66 % (41-73); Platelet Count 288 K/mm3 (150-400); RDW Coefficient Variation 13.9 % (11.7-14.2); RDW Standard Deviation 50.1 fL (35.1-46.3); White Blood Cell Count 5.93 K/mm3 (4.00-11.30)
[2020-05-18 01:23] LABS: Anion Gap 6 mmol/L (6-16); Blood Urea Nitrogen 18 mg/dL (8-24); Bun/Creatinine Ratio 21.6 (12.0-20.0); CO2, Blood 29 mmol/L (21-32); Chloride, Blood 108 mmol/L (98-108); Creatinine, Blood 0.83 mg/dL (0.40-1.00); Glomerular Filtration Rate >60 (60-); Glucose, Blood 132 mg/dL (70-99); Potassium, Blood 3.5 mmol/L (3.5-5.5); Sodium, Blood 143 mmol/L (136-145)
--- NOTE | 2020-05-18 06:52 | NUR ---
SUMMARY PT C/O INCREASING CONSTIPATION. REPORTS THE BOWEL MOVEMENTS DOCUMENTED ON CHART WERE "NOT REALLY FULL BMS. PT REFUSING FLEETS AND SUPPOS TONIGHT.STATES SHE WANTS SOMETHING STRONGER,BUT STATES DOES NOT WANT MAG CITRATE. I ALREADY SPOKE WITH HOSPITALIST MELINA AND MADE HIM AWARE, I NOTIFIED DR LUNA FOR SURGICAL SERVICES.DR LUNA DEFERRED TO PTS SURGEON WITH ROUNDS HE FEELS THEY WOULD BE MOST FAMILIAR WITH THIS PT.I ADVISED PT SR LUNA WISHES FURTHER ADDRESSED WITH SURGICAL ROUNDING. PT VERB UNDERSTANDING. PT IRRITABLE AT TIMES TONIGHT.STATES STAFF IS ARGUING WITH HER, WHEN STAFF IS QUESTIONING IN ORDER TO UNDERSTAND FULLY PTS CONCERNS AND ISSUES IN ADDITION TO I/O. ALSO DISCUSSED HER HEALTH BACKGROUND.DISCUSSED WITH PT THAT QUESTIONING IS SO THAT WE CAN FULLY UNDERSTAND AND PROVIDE HER WITH APPROPRIATE CARE.PT STATES SHE IS APPREECIATIVE AND UNDERSTANDING IT WILL BE ADDRESSED WITH ROUNDING. PT CURRENTLY RESTING IN CHAIR AT BEDSIDE.
--- NOTE | 2020-05-18 07:15 | NUR ---
recvd report from previous shift RN Jorge, pt sitting up in chair sleeping, call light within reach
--- NOTE | 2020-05-18 11:05 | NUR ---
DR KAPLAN ROUNDING ON PT. PT AWAITING SNF TRANSFER, HAS MET ALL SURGICAL GOALS, AWAITING ROUNDING/CLEARANCE FROM SURGICAL SERVICE. DR SCOTT CONTACT, ON VACATION, ASKED TO NOTIFY DR LUNA. DR LUNA NOTIFIED AND RESPONDED HE HAS NOT HAD TRANSFER FROM DR VICTORIA. DR VICTORIA'S OFFICE NOTIFIED, AWAITING RESPONSE. SALES INSPECTOR/NURSING STAFF/HOSPITALIST ALL WAITING FOR SURGICAL SERVICE TO RESPOND.
[2020-05-18] MEDS ORDERED: ACET325 PO (13:47)
[2020-05-18] MEDS ORDERED: SENN187 PO (13:50)
[2020-05-18] MEDS ORDERED: SPIR25 PO (13:51)
--- NOTE | 2020-05-18 15:59 | NUR ---
provided report to ADRI Peguero at [facility]. pt awaiting transfer via wheelchair van. peripheral IV removed WNL. pt dressed and ready
--- NOTE | 2020-05-18 16:42 | NUR ---
transport to take patient to [facility], pt's belongings in bags and with pt.
== END 2020-05-18 16:44 | DRG 336 ==
LOC: ER 19:45 → MEDS 21:34 → SURS 21:34 → MEDS 23:16 → SURS 05-11 17:04
PROVIDERS: Internal Medicine; Physician Assistant; ADMIT Surgery
PROC: 0DN80ZZ Release Small Intestine, Open Approach (ICD-10-PCS; 2020-05-11)
PROC: 0WUF0JZ Supplement Abdominal Wall with Synthetic Substitute, Open Approach (ICD-10-PCS; principal; 2020-05-11 12:30)
DX: K43.6 Other and unspecified ventral hernia with obstruction, without gangrene (principal); Z68.41 Body mass index [BMI] 40.0-44.9, adult; K56.609 Unspecified intestinal obstruction, unspecified as to partial versus complete obstruction; E03.9 Hypothyroidism, unspecified; Z74.09 Other reduced mobility; E87.6 Hypokalemia; I95.9 Hypotension, unspecified; I87.2 Venous insufficiency (chronic) (peripheral); Z86.14 Personal history of Methicillin resistant Staphylococcus aureus infection; E66.9 Obesity, unspecified
CPT/HCPCS: 36415; 74176; 80048; 80053; 80202; 82533; 82947; 83690; 83735; 84439; 84443; 85025; 87081; 88302; 93005; 93010; 93306; 94762; 96361; 96374; 96375; 97116; 97161; 97530; 99285-25; A9270; C1781; J0330; J0690; J1170; J1650; J1940; J2250; J2405; J2704; J2710; J3010; J3360; J3370; J3480; J7030; J7050; J7120; U0002

== ENCOUNTER 2020-07-16 22:38 | Emergency (ER) | payer OTHER ==
[~2020-07-16] VITALS: Ht 167.6 cm; Wt 125.6 kg
[~2020-07-16 22:38] MED LIST changes: +ACET325 PO; +EUTHYROX25 MC1 PO; +SENN187 PO; +SPIR25 PO; +Synthroid200 MCG PO
[2020-07-16 23:40] LABS: BASOPHILS ABSOLUTE AUTO 0.04 K/mm3 (0.00-0.23); BASOPHILS PERCENT AUTO 1 % (0-2); EOSINOPHILS PERCENT AUTO 3 % (0-6); Hematocrit 36.2 % (33.0-51.0); Hemoglobin 11.1 g/dL (11.5-16.0); IMMATURE GRAN ABSOLUTE AUTO 0.01 K/mm3 (0.00-0.10); IMMATURE GRAN PERCENT AUTO 0 % (0-1); LYMPHOCYTES ABSOLUTE AUTO 1.34 K/mm3 (0.84-5.20); LYMPHOCYTES PERCENT AUTO 22 % (21-46); MONOCYTES ABSOLUTE AUTO 0.67 K/mm3 (0.16-1.47); MONOCYTES PERCENT AUTO 11 % (4-13); Mean Corpuscular HGB 28.5 pg (26.0-34.0); Mean Corpuscular HGB Conc 30.7 g/dL (31.5-36.5); Mean Corpuscular Volume 93 fL (80-100); Mean Platelet Volume 10.6 fL (9.1-12.4); NEUTROPHILS PERCENT AUTO 63 % (41-73); Platelet Count 342 K/mm3 (150-400); RDW Coefficient Variation 13.7 % (11.7-14.2); RDW Standard Deviation 46.4 fL (35.1-46.3); White Blood Cell Count 6.06 K/mm3 (4.00-11.30)
[2020-07-17 00:03] LABS: Alanine Aminotransfer (ALT/SGP 20 U/L (12-78); Albumin, Blood 3.2 g/dL (3.4-5.0); Albumin/Globulin Ratio 0.8 (0.8-1.8); Alk Phos 102 U/L (50-136); Anion Gap 3 mmol/L (6-16); Aspartate Aminotrans (AST/SGOT 14 U/L (12-37); Bilirubin, Total 0.3 mg/dL (0.1-1.0); Blood Urea Nitrogen 19 mg/dL (8-24); Bun/Creatinine Ratio 25.2 (12.0-20.0); CO2, Blood 32 mmol/L (21-32); Chloride, Blood 109 mmol/L (98-108); Creatinine, Blood 0.75 mg/dL (0.40-1.00); Globulin, Blood 4.1 g/dL (2.2-4.0); Glomerular Filtration Rate >60 (60-); Glucose, Blood 102 mg/dL (70-99); Potassium, Blood 3.8 mmol/L (3.5-5.5); Sodium, Blood 144 mmol/L (136-145); Total Protein, Blood 7.3 g/dL (6.4-8.2)
[2020-07-17] MEDS ORDERED: CEFP200 PO (00:07)
== END 2020-07-17 01:00 | disposition home or self-care (01) ==
LOC: ER 22:38
PROVIDERS: Emergency Medicine
DX: L03.115 Cellulitis of right lower limb (principal); L03.116 Cellulitis of left lower limb; I89.0 Lymphedema, not elsewhere classified; Z91.09 Other allergy status, other than to drugs and biological substances; Z79.899 Other long term (current) drug therapy; E03.9 Hypothyroidism, unspecified; E11.9 Type 2 diabetes mellitus without complications
CPT/HCPCS: 36415; 80053; 83605; 85025; 96365; 96375; 99283-25; J0696

== ENCOUNTER 2020-07-18 22:21 | Emergency (ER) | payer OTHER ==
[~2020-07-18] VITALS: Ht 167.6 cm; Wt 125.6 kg
[2020-07-19] MEDS ORDERED: SPIRONOLACTONE25 MG PO (01:31)
== END 2020-07-19 02:49 | disposition home or self-care (01) ==
LOC: ER 22:21
DX: L03.116 Cellulitis of left lower limb (principal); L03.115 Cellulitis of right lower limb; I89.0 Lymphedema, not elsewhere classified; E11.9 Type 2 diabetes mellitus without complications; Z91.09 Other allergy status, other than to drugs and biological substances; Z79.899 Other long term (current) drug therapy
CPT/HCPCS: 99283

== ENCOUNTER → 2020-07-22 | Outpatient (CLI) | payer OTHER ==
[~2020-07-22] MED LIST changes: +SPIRONOLACTONE25 MG PO
== END | disposition home or self-care (01) ==
LOC: LAB 11:09 → LAB SHORT 11:09
DX: L03.116 Cellulitis of left lower limb (principal); L03.115 Cellulitis of right lower limb
CPT/HCPCS: 87070; 87205

== ENCOUNTER → 2020-07-25 | Outpatient (CLI) | payer OTHER | LOC: LAB 10:40 → LAB SHORT 10:40 | DX: R60.9 Edema, unspecified (principal) | CPT/HCPCS: 83880 ==

== ENCOUNTER 2020-08-31 20:50 | Inpatient (IN) | payer OTHER ==
[~2020-08-31] VITALS: Ht 165.1 cm; Wt 128.2 kg
[~2020-08-31 20:50] MED LIST changes: -BACTRIM DS TAB1 EAC1 PO; -FURO20 PO; -LEVSOD25 PO; -MIDO5 PO; -ONDA4ODT MM; -UNNA-FLEX CONV1 EACH TOP; -VISBIOME PROBIOTIC PO
[2020-08-31 21:28] LABS: BASOPHILS ABSOLUTE AUTO 0.04 K/mm3 (0.00-0.23); BASOPHILS PERCENT AUTO 1 % (0-2); EOSINOPHILS ABSOLUTE AUTO 0.03 K/mm3 (0.00-0.68); EOSINOPHILS PERCENT AUTO 0 % (0-6); Hematocrit 39.9 % (33.0-51.0); Hemoglobin 12.2 g/dL (11.5-16.0); IMMATURE GRAN ABSOLUTE AUTO 0.02 K/mm3 (0.00-0.10); IMMATURE GRAN PERCENT AUTO 0 % (0-1); LYMPHOCYTES ABSOLUTE AUTO 0.72 K/mm3 (0.84-5.20); LYMPHOCYTES PERCENT AUTO 8 % (21-46); MONOCYTES ABSOLUTE AUTO 0.69 K/mm3 (0.16-1.47); MONOCYTES PERCENT AUTO 8 % (4-13); Mean Corpuscular HGB Conc 30.6 g/dL (31.5-36.5); Mean Corpuscular Volume 88 fL (80-100); Mean Platelet Volume 10.4 fL (9.1-12.4); NEUTROPHILS ABSOLUTE AUTO 7.38 K/mm3 (1.96-9.15); NEUTROPHILS PERCENT AUTO 83 % (41-73); Platelet Count 353 K/mm3 (150-400); RDW Coefficient Variation 15.6 % (11.7-14.2); RDW Standard Deviation 50.5 fL (35.1-46.3); Red Blood Cell Count 4.52 M/mm3 (3.80-5.20); White Blood Cell Count 8.88 K/mm3 (4.00-11.30)
[2020-08-31 21:46] LABS: Alanine Aminotransfer (ALT/SGP 20 U/L (12-78); Albumin, Blood 2.9 g/dL (3.4-5.0); Albumin/Globulin Ratio 0.6 (0.8-1.8); Alk Phos 129 U/L (50-136); Anion Gap 5 mmol/L (6-16); Aspartate Aminotrans (AST/SGOT 16 U/L (12-37); Bilirubin, Total 0.2 mg/dL (0.1-1.0); Blood Urea Nitrogen 22 mg/dL (8-24); Bun/Creatinine Ratio 31.6 (12.0-20.0); CO2, Blood 28 mmol/L (21-32); Calcium, Blood 9.1 mg/dL (8.5-10.1); Chloride, Blood 108 mmol/L (98-108); Globulin, Blood 4.8 g/dL (2.2-4.0); Glomerular Filtration Rate >60 (60-); Glucose, Blood 114 mg/dL (70-99); Potassium, Blood 4.1 mmol/L (3.5-5.5); Sodium, Blood 141 mmol/L (136-145); Total Protein, Blood 7.7 g/dL (6.4-8.2)
[2020-08-31] MEDS ORDERED: LEVSOD25 PO (21:57)
[2020-08-31] MEDS ORDERED: BACTRIM DS TAB1 EAC1 PO (21:59)
[2020-08-31 22:27] LABS: Source, Urine Clean Catch
[2020-08-31 22:30] LABS: Appearance, Urine Clear (Clear); Bilirubin, Urine Neg (Neg); Blood, Urine 1+ (Neg); Color, Urine Yellow (P-Yellow); Glucose Qualitative, Urine Neg (Neg); Ketones, Urine Neg (Neg); Leukocyte Esterase, Urine Neg (Neg); Nitrite, Urine Neg (Neg); Protein, Urine Neg (Neg); Urobilinogen, Urine NORM (Normal)
[2020-08-31 22:49] LABS: Bacteria Few /hpf; Red Blood Cells, Urine 0-2 /hpf (0-2); Squamous Epithelial Cells Few /hpf (Few); White Blood Cells, Urine Not Seen /hpf (0-5)
[2020-08-31 22:55] LABS: Magnesium, Blood 2.1 mg/dL (1.6-2.4); Troponin I <0.015 ng/mL (0.000-0.040)
--- NOTE | 2020-09-01 02:33 | NUR ---
65 YR OLD FEMALE ADMITTED TO FLOOR FROM THE ED WITH DX OF CELLULITIS OF BLE. NOTE SEVERE CRUSTED SKIN, SWELLING AND REDNESS OF BLE. ALERT AND ORINTED X 4. ORIENTED TO USE OF CALL LIGHT AND CALL LIGHT IN REACH.
[2020-09-01 05:37] LABS: BASOPHILS ABSOLUTE AUTO 0.02 K/mm3 (0.00-0.23); BASOPHILS PERCENT AUTO 0 % (0-2); EOSINOPHILS ABSOLUTE AUTO 0.01 K/mm3 (0.00-0.68); EOSINOPHILS PERCENT AUTO 0 % (0-6); Hematocrit 40.7 % (33.0-51.0); Hemoglobin 12.5 g/dL (11.5-16.0); IMMATURE GRAN ABSOLUTE AUTO 0.04 K/mm3 (0.00-0.10); IMMATURE GRAN PERCENT AUTO 0 % (0-1); LYMPHOCYTES ABSOLUTE AUTO 0.87 K/mm3 (0.84-5.20); LYMPHOCYTES PERCENT AUTO 7 % (21-46); MONOCYTES ABSOLUTE AUTO 1.07 K/mm3 (0.16-1.47); MONOCYTES PERCENT AUTO 9 % (4-13); Mean Corpuscular HGB 27.4 pg (26.0-34.0); Mean Corpuscular HGB Conc 30.7 g/dL (31.5-36.5); Mean Corpuscular Volume 89 fL (80-100); Mean Platelet Volume 11.2 fL (9.1-12.4); NEUTROPHILS ABSOLUTE AUTO 10.45 K/mm3 (1.96-9.15); NEUTROPHILS PERCENT AUTO 84 % (41-73); Platelet Count 331 K/mm3 (150-400); RDW Standard Deviation 52.1 fL (35.1-46.3); Red Blood Cell Count 4.56 M/mm3 (3.80-5.20); White Blood Cell Count 12.46 K/mm3 (4.00-11.30)
[2020-09-01 05:59] LABS: Alanine Aminotransfer (ALT/SGP 23 U/L (12-78); Albumin/Globulin Ratio 0.7 (0.8-1.8); Alk Phos 127 U/L (50-136); Anion Gap 6 mmol/L (6-16); Aspartate Aminotrans (AST/SGOT 26 U/L (12-37); Bilirubin, Total 0.7 mg/dL (0.1-1.0); Blood Urea Nitrogen 19 mg/dL (8-24); Bun/Creatinine Ratio 27.2 (12.0-20.0); CO2, Blood 26 mmol/L (21-32); Chloride, Blood 111 mmol/L (98-108); Globulin, Blood 4.3 g/dL (2.2-4.0); Glomerular Filtration Rate >60 (60-); Glucose, Blood 116 mg/dL (70-99); Potassium, Blood 3.9 mmol/L (3.5-5.5); Sodium, Blood 143 mmol/L (136-145); Total Protein, Blood 7.3 g/dL (6.4-8.2)
[2020-09-01 06:07] LABS: Free Thyroxine 1.23 ng/dL (0.70-1.60); Thyroid Stimulating Hormone 1.01 uIU/mL (0.360-4.800)
--- NOTE | 2020-09-01 08:38 | NUR ---
PHYSICIAN NOTIFIED THIS RN CALLED DR. BENNETT ABOUT PT BP OF 91/55 WITH NS AND ABX CURRENTLY INFUSING. PT IS NOT DIAPHORETIC AND TEMP IS 98.7. DR. BENNETT HAS GIVEN ORDERS TO INFUSE A 500 ML BOLUS OF NS.
--- NOTE | 2020-09-01 16:48 | NUR ---
PHYSICIAN NOTIFIED/PT BP THIS RN CALLED DR. BENNETT ABOUT PT BP OF 97/55 AT 1649. THIS RN RECIEVED ORDERS TO INCREASE THE MIDODRINE DOSE FROM 2.5 MG TO 5 MG TID. THIS RN CLARIFIED IF PHYSICIAN STILL WANTED 1400 LASIX ADMINISTERED DESPITE BP, AND RECIEVED ORDERS TO HOLD LASIX DOSE. THIS RN WILL CONTINUE TO MONITOR.
--- NOTE | 2020-09-01 18:13 | NUR ---
SHIFT SUMMARY PT IS AOX4. PT DENIES PAIN, N/V, SOB. PT APPEARS FLUSHED AT TIMES, BUT TEMP CURRENTLY 98.7. PT HAS DIFFICULTY MOVING IN BED, BUT WALKS WITH ONE ASSIST TO THE BATHROOM. ABX INFUSING. BP HAS BEEN LOW AROUND 97/55 AND PHYSICIAN IS AWARE. PT ASSISTED INTO CHAIR FOR MEALS. PT EXPRESSES INCREASED SLEEPINESS AND NAPPING THROUGHOUT SHIFT. PT STATES, "I HAVE NOT SLEPT IN 3 DAYS". PT IS CURRENTLY IN THE CHAIR, CALL LIGHT IN REACH.
--- NOTE | 2020-09-02 19:15 | NUR ---
ASSUMED CARE RECEIVED REPORT FROM ADRI HUERTAS. ASSUMED CARE OF PT. RESTING IN BED AT THIS TIME, NO S/S ACUTE DISTRESS NOTED. DENIES NEEDS. CALL LIGHT, POSSESSIONS IN REACH, BED IN LOW POSITION. WILL CONTINUE TO MONITOR.
--- NOTE | 2020-09-02 19:20 | NUR ---
SHIFT SUMMARY PT IS AOX4. PT STATES SHE FEELS MORE RESTED THIS SHIFT THAN YESTERDAY. PT MEDICATED FOR PAIN X1 THIS SHIFT. PT IS SALINE LOCKED. PT UP IN CHAIR THROUGHOUT SHIFT. PT BP LOW AND MIDODRINE ADMINISTERED X1. PT IS SINUS 80S ON TELE. CARE MANAGEMENT IN TO SEE PT. SON VISITED PT THIS JESSI. PT IS IN CHAIR, CALL LIGHT IN REACH.
--- NOTE | 2020-09-03 06:20 | NUR ---
SHIFT SUMMARY PT HAS HAD AN UNEVENTFUL NIGHT. PT SEEMS INCREASINGLY PAINFUL TO BLE AND JOINTS. HESISTANT TO PARTICIPATE IN CARES, STATING "I CAN'T DO IT." ENCOURAGED PT TO PARTICIPATE MUCH ABLE, REMINDING THAT STAFF HAVE SEEN PROGRESS. TOLERATED SITTING IN RECLINER WELL, ELEVATED BLE TO DECREASE SWELLING; WEEPING EDEMA CONTINUES, PT C/O "ITCHING AND BURNING". MEDICATED FOR PAIN, EFFECTIVE. VS REVIEWED, BP'S STABLE. DENIES NEEDS AT THIS TIME. CALL LIGHT, POSSESSIONS IN REACH, BED IN LOW POSITION WITH ALARMS ON. WILL CONTINUE TO MONITOR UNTIL DAY RN ASSUMES CARE.
[2020-09-03 09:11] LABS: BASOPHILS ABSOLUTE AUTO 0.03 K/mm3 (0.00-0.23); BASOPHILS PERCENT AUTO 0 % (0-2); EOSINOPHILS ABSOLUTE AUTO 0.25 K/mm3 (0.00-0.68); EOSINOPHILS PERCENT AUTO 4 % (0-6); Hemoglobin 11.1 g/dL (11.5-16.0); IMMATURE GRAN ABSOLUTE AUTO 0.01 K/mm3 (0.00-0.10); IMMATURE GRAN PERCENT AUTO 0 % (0-1); LYMPHOCYTES ABSOLUTE AUTO 0.96 K/mm3 (0.84-5.20); LYMPHOCYTES PERCENT AUTO 14 % (21-46); MONOCYTES ABSOLUTE AUTO 0.42 K/mm3 (0.16-1.47); MONOCYTES PERCENT AUTO 6 % (4-13); Mean Corpuscular HGB 27.2 pg (26.0-34.0); Mean Corpuscular HGB Conc 30.8 g/dL (31.5-36.5); Mean Corpuscular Volume 88 fL (80-100); Mean Platelet Volume 10.6 fL (9.1-12.4); NEUTROPHILS ABSOLUTE AUTO 5.45 K/mm3 (1.96-9.15); NEUTROPHILS PERCENT AUTO 77 % (41-73); Platelet Count 305 K/mm3 (150-400); RDW Coefficient Variation 16.1 % (11.7-14.2); RDW Standard Deviation 52.2 fL (35.1-46.3); Red Blood Cell Count 4.08 M/mm3 (3.80-5.20); White Blood Cell Count 7.12 K/mm3 (4.00-11.30)
[2020-09-03 09:30] LABS: Alanine Aminotransfer (ALT/SGP 34 U/L (12-78); Albumin, Blood 2.5 g/dL (3.4-5.0); Albumin/Globulin Ratio 0.6 (0.8-1.8); Alk Phos 107 U/L (50-136); Anion Gap 6 mmol/L (6-16); Aspartate Aminotrans (AST/SGOT 23 U/L (12-37); Bilirubin, Total 0.3 mg/dL (0.1-1.0); Blood Urea Nitrogen 19 mg/dL (8-24); CO2, Blood 27 mmol/L (21-32); Calcium, Blood 8.9 mg/dL (8.5-10.1); Chloride, Blood 111 mmol/L (98-108); Creatinine, Blood 0.63 mg/dL (0.40-1.00); Globulin, Blood 4.5 g/dL (2.2-4.0); Glomerular Filtration Rate >60 (60-); Glucose, Blood 125 mg/dL (70-99); Potassium, Blood 3.6 mmol/L (3.5-5.5); Sodium, Blood 144 mmol/L (136-145)
--- NOTE | 2020-09-03 17:43 | NUR ---
SHIFT SUMMARY PATIENT ALERT AND ORIENTED THIS SHIFT. PATIENT SITTING UP IN BED MOST OF THIS AM, WORKED WITH PT EARLY THIS AFTERNOON, THEN LAYING IN BED MUCH OF THE AFTERNOON. PATIENT'S IV REPLACED THIS AFTERNOON DUE TO INFLITRATION. PATIENT MEDICATED FOR PAIN ONE TIME THIS AFTERNOON FOR PAIN IN HER HIPS/JOINTS. PATIENT REMAINS ON ANTIBIOTICS FOR CELLULITIS ON LYMPHEDEMA IN HER LOWER EXTREMETIES. PATIENT IS CURRENTLY LAYING IN BED RESTING.
[2020-09-04 03:47] LABS: BASOPHILS ABSOLUTE AUTO 0.04 K/mm3 (0.00-0.23); BASOPHILS PERCENT AUTO 1 % (0-2); EOSINOPHILS ABSOLUTE AUTO 0.27 K/mm3 (0.00-0.68); EOSINOPHILS PERCENT AUTO 4 % (0-6); Hemoglobin 9.9 g/dL (11.5-16.0); IMMATURE GRAN ABSOLUTE AUTO 0.01 K/mm3 (0.00-0.10); IMMATURE GRAN PERCENT AUTO 0 % (0-1); LYMPHOCYTES ABSOLUTE AUTO 0.92 K/mm3 (0.84-5.20); LYMPHOCYTES PERCENT AUTO 14 % (21-46); MONOCYTES ABSOLUTE AUTO 0.63 K/mm3 (0.16-1.47); MONOCYTES PERCENT AUTO 10 % (4-13); Mean Corpuscular HGB Conc 30.9 g/dL (31.5-36.5); Mean Corpuscular Volume 87 fL (80-100); Mean Platelet Volume 10.5 fL (9.1-12.4); NEUTROPHILS ABSOLUTE AUTO 4.66 K/mm3 (1.96-9.15); NEUTROPHILS PERCENT AUTO 71 % (41-73); Platelet Count 306 K/mm3 (150-400); RDW Coefficient Variation 15.9 % (11.7-14.2); RDW Standard Deviation 50.4 fL (35.1-46.3); Red Blood Cell Count 3.67 M/mm3 (3.80-5.20); White Blood Cell Count 6.53 K/mm3 (4.00-11.30)
[2020-09-04 04:07] LABS: Anion Gap 5 mmol/L (6-16); Blood Urea Nitrogen 17 mg/dL (8-24); Bun/Creatinine Ratio 26.9 (12.0-20.0); CO2, Blood 29 mmol/L (21-32); Calcium, Blood 8.6 mg/dL (8.5-10.1); Chloride, Blood 111 mmol/L (98-108); Creatinine, Blood 0.63 mg/dL (0.40-1.00); Glomerular Filtration Rate >60 (60-); Glucose, Blood 89 mg/dL (70-99); Potassium, Blood 3.3 mmol/L (3.5-5.5); Sodium, Blood 145 mmol/L (136-145); Vancomycin, Trough 16.2 ug/mL (5.0-10.0)
--- NOTE | 2020-09-04 10:57 | NUR ---
DID UNDO AT 1057 DUE TO CHARTING ON WRONG PT.
--- NOTE | 2020-09-04 17:45 | NUR ---
SHIFT SUMMARY PT ALERT AND ORIENTEDX4. CALLS APPROPROATELY. PT HAD A WOUND DRESSING CHANGED TODAY X2 ON BLE- OOZING AND WEEPING CELLULITIS-SEE PIC. NO OTHER C/O DURING THIS SHIFT. PT HAD AN EPISODE OF SINUS YARIEL; ASYMPTOMATIC AND CAME BACK TO NSR. BED IS IN THE LOWEST POSITION AND CALL LIGHTS WITHIN REACH.
--- NOTE | 2020-09-05 04:15 | NUR ---
SVT CALL FROM SUNITA RYDER AT 0415 THAT PT HAD A 16 BEAT RUN OF SVT. WHEN I WENT TO CHECK ON PT SHE WAS UP IN HER ROOM AMBULATING AND HAD NO COMPLAINTS, AND OTHERWISE ASYMPTOMATIC. VITALS OBTAINED AND WERE STABLE. PT HAS HAD A PRIOR EPISODE ABOUT 2 DAYS AGO PER SUNITA RYDER, SO NOT NEW FOR HER. SOFTWARE APPLICATION TESTER CAS MIGUEL RN STATES TO NOTIFY DOCTOR WHEN ANOTHER RN NEEDS TO CALL DR. IF NO ONE CALLS BEFORE SHIFT CHANGE TO RELAY TO DAYSHIFT RN FOR FOLLOW UP.
[2020-09-05 05:32] LABS: BASOPHILS ABSOLUTE AUTO 0.04 K/mm3 (0.00-0.23); BASOPHILS PERCENT AUTO 1 % (0-2); EOSINOPHILS ABSOLUTE AUTO 0.21 K/mm3 (0.00-0.68); EOSINOPHILS PERCENT AUTO 4 % (0-6); Hematocrit 35.9 % (33.0-51.0); Hemoglobin 10.7 g/dL (11.5-16.0); IMMATURE GRAN ABSOLUTE AUTO 0.02 K/mm3 (0.00-0.10); IMMATURE GRAN PERCENT AUTO 0 % (0-1); LYMPHOCYTES ABSOLUTE AUTO 1.07 K/mm3 (0.84-5.20); LYMPHOCYTES PERCENT AUTO 19 % (21-46); MONOCYTES ABSOLUTE AUTO 0.67 K/mm3 (0.16-1.47); MONOCYTES PERCENT AUTO 12 % (4-13); Mean Corpuscular HGB 26.3 pg (26.0-34.0); Mean Corpuscular HGB Conc 29.8 g/dL (31.5-36.5); Mean Corpuscular Volume 88 fL (80-100); Mean Platelet Volume 11.1 fL (9.1-12.4); NEUTROPHILS ABSOLUTE AUTO 3.73 K/mm3 (1.96-9.15); NEUTROPHILS PERCENT AUTO 65 % (41-73); Platelet Count 364 K/mm3 (150-400); RDW Coefficient Variation 15.9 % (11.7-14.2); Red Blood Cell Count 4.07 M/mm3 (3.80-5.20); White Blood Cell Count 5.74 K/mm3 (4.00-11.30)
[2020-09-05 05:52] LABS: Anion Gap 5 mmol/L (6-16); Blood Urea Nitrogen 19 mg/dL (8-24); Bun/Creatinine Ratio 24.5 (12.0-20.0); CO2, Blood 30 mmol/L (21-32); Calcium, Blood 8.8 mg/dL (8.5-10.1); Chloride, Blood 106 mmol/L (98-108); Creatinine, Blood 0.77 mg/dL (0.40-1.00); Glomerular Filtration Rate >60 (60-); Glucose, Blood 93 mg/dL (70-99); Potassium, Blood 3.5 mmol/L (3.5-5.5); Sodium, Blood 141 mmol/L (136-145)
--- NOTE | 2020-09-05 06:10 | NUR ---
SHIFT SUMMARY PT HAS RESTED MOST OF THE NIGHT IN HER RECLINER. BLE CONTINUES TO WEEP, AND HAS REQUIRED A DRESSING CHANGE THIS SHIFT. PT PAIN IN HER LEGS HAS BEEN MINIMAL THIS SHIFT. IV ABX CONTINUED PER ORDERS. NO ACUTE CHANGES IN ASSESSMENT. BED IN LOWEST POSITION, CALL LIGHT WITHIN REACH.
--- NOTE | 2020-09-05 17:02 | NUR ---
SHIFT SUMMARY PT ALERT ORIENTED X4. CALLS APPROPRIATELY. PT INDEPENDENT IN THE ROOM AND ON ROOM AIR. PT IS ON TELE-NSR 70S. NO C/O CP OR SOB. PT STILL WAITING FOR PLACEMENT MAYBE FOR SNF AND FINISHING THE COURSE OF ABX. NO OTHER ACUTE CHANGES AT THIS SHIFT. BED IS IN THE LOWEST POSITION AND CALL LIGHTS WITHIN REACH.
--- NOTE | 2020-09-06 05:44 | NUR ---
SHIFT SUMMARY PT IS A 65 Y/O FEMALE, ADMITTED FOR BLE CELLULITIS. SHE IS A&O X 4, ABLE TO AMBULATE INDEPENDENTLY TO THE BATHROOM. NO C/O ACUTE PAIN, NAUSEA OR SOB. CELLULITIS ON BLE IS SCALY AND WEEPING, CLEANSED AND DRESSINGS CHANGED DURING THE NIGHT. POWERGLIDE PLACED AFTER SEVERAL ATTEMPTS TO PLACE A PERIPHERAL IV FAILED. VITAL SIGNS STABLE. NO ACUTE CHANGES IN PT CONDITION NOTED DURING THE NIGHT. WILL CONTINUE TO MONITOR AND TREAT PER EMAR UNTIL HAND OFF TO DAY SHIFT RN.
--- NOTE | 2020-09-06 11:12 | NUR ---
PT RECIEVED IV LASIX AFTER COMPELTE INFUSION OF ANTIBIOTIC PER REQUEST.
--- NOTE | 2020-09-06 18:51 | NUR ---
A&OX4, PT IS INDEPENDENT. PT DENIES PAIN, HAND SINGER DR. NULL CONSULTED TODAY AND ORDERED UNABOOTS BLE TO BE CHANGED EVERY 3 DAYS. UNAABOOTS ADMINISTERED TODAY. PT REFUSED LASIX THIS EVENING. NO OTHER COMMENTS OR CONCERNS AT THIS TIME.
[2020-09-06 20:56] LABS: Vancomycin, Trough 17.9 ug/mL (5.0-10.0)
--- NOTE | 2020-09-07 04:19 | NUR ---
SHIFT SUMMARY: PT A&O X4. VS WNL. BILATERAL UNNA BOOTS IN PLACE AND WRAPPED IN CULLEN WRAP. ORDER TO CHANGE EVERY THREE DAYS. PT AMBULATING INDEPENDENTLY. VOIDING WELL. SALINE LOCKED IN BETWEEN ABX. SEKOU PO. DENIES N/V. DENIES PAIN. PT RESTING IN CHAIR MOST OF SHIFT. PLAN FOR POSS DISCHARGE HOME TODAY WITH [facility]. PT WILL THEN FOLLOW UP OUTPATIENT FOR WEEKLY CHANGES OF UNNA BOOTS. NO CONCERNS AT THIS TIME.
[2020-09-07] MEDS ORDERED: ACET325 PO (11:25)
[2020-09-07] MEDS ORDERED: CEPH500 PO (11:27)
[2020-09-07] MEDS ORDERED: FURO20 PO (11:27)
[2020-09-07] MEDS ORDERED: MIDO5 PO (11:28)
[2020-09-07] MEDS ORDERED: ONDA4ODT MM (11:29)
[2020-09-07] MEDS ORDERED: UNNA-FLEX CONV1 EACH TOP (11:30)
[2020-09-07] MEDS ORDERED: VISBIOME PROBIOTIC PO (11:37)
--- NOTE | 2020-09-07 16:15 | NUR ---
PT A&OX4, INDEPENDENT, DENIES PAIN, SINUS RHYTHM IN 60'S. PT ORDERED UNABOOTS PER DR. BORGES HAS FOLLOW UP ON SUNDAY. PT DISCHARGED TODAY AT 1440 VIA RIDE WITH FRIEND. PT ESCORTED TO ENTRANCE VIA [employer] MACHINE HELPER. NO OTHER CHANGES OR CONCERNS.
== END 2020-09-07 14:40 | disposition home health service (06) | DRG 872 ==
LOC: ER 20:50 → MEDS 20:52 → ER 09-01 00:33 → MEDS 09-01 00:33
PROVIDERS: Emergency Medicine; Family Medicine; Pharmacist; ADMIT Internal Medicine
DX: A41.9 Sepsis, unspecified organism (principal); Z68.42 Body mass index [BMI] 45.0-49.9, adult; L03.115 Cellulitis of right lower limb; L03.116 Cellulitis of left lower limb; E03.9 Hypothyroidism, unspecified; Z20.828 Contact with and (suspected) exposure to other viral communicable diseases; E66.01 Morbid (severe) obesity due to excess calories; I89.0 Lymphedema, not elsewhere classified; I87.2 Venous insufficiency (chronic) (peripheral); I95.9 Hypotension, unspecified; E11.69 Type 2 diabetes mellitus with other specified complication; E87.6 Hypokalemia; T50.1X5A Adverse effect of loop [high-ceiling] diuretics, initial encounter; Y92.230 Patient room in hospital as the place of occurrence of the external cause
CPT/HCPCS: 36415; 71045; 80048; 80053; 80202; 81001; 83605; 83735; 83880; 84145; 84439; 84443; 84484; 85025; 87040; 93005; 93010; 96361; 96365; 96366; 96367; 96372; 96375; 96376; 97165; 97535; 99284-25; A9270; G0378; J0690; J0696; J1650; J1940; J3010; J3370; J7030; J7050; U0003

== ENCOUNTER → 2020-08-31 | Outpatient (CLI) | payer OTHER ==
[~2020-08-31] MED LIST changes: +BACTRIM DS TAB1 EAC1 PO; +FURO20 PO; +LEVSOD25 PO; +MIDO5 PO; +ONDA4ODT MM; +UNNA-FLEX CONV1 EACH TOP; +VISBIOME PROBIOTIC PO
== END | disposition home or self-care (01) ==
LOC: LAB 18:50 → LAB SHORT 18:50
DX: L03.119 Cellulitis of unspecified part of limb (principal)
CPT/HCPCS: 87070; 87205

== ENCOUNTER → 2020-09-29 | Outpatient (CLI) | payer OTHER ==
[~2020-09-29] MED LIST changes: +BACTRIM DS TAB1 EAC1 PO; +FURO20 PO; +LEVSOD25 PO; +MIDO5 PO; +ONDA4ODT MM; +UNNA-FLEX CONV1 EACH TOP; +VISBIOME PROBIOTIC PO
== END | disposition home or self-care (01) ==
LOC: LAB SHORT 10:57 → LAB 10:57
DX: L03.116 Cellulitis of left lower limb (principal)
CPT/HCPCS: 87070; 87205

== ENCOUNTER → 2020-12-14 | Outpatient (CLI) | payer OTHER, SELFPAY | END | disposition home or self-care (01) | LOC: LAB SHORT 10:15 → LAB 10:15 | DX: L03.116 Cellulitis of left lower limb (principal) | CPT/HCPCS: 87070; 87205 ==

== ENCOUNTER → 2021-05-17 | Outpatient (CLI) | payer OTHER | END | disposition home or self-care (01) | LOC: LAB 16:19 → LAB SHORT 16:19 | DX: L03.116 Cellulitis of left lower limb (principal) | CPT/HCPCS: 87070; 87205 ==

== ENCOUNTER → 2021-11-01 | Outpatient (CLI) | payer OTHER ==
[2021-11-01 13:50] LABS: BASOPHILS ABSOLUTE AUTO 0.06 K/mm3 (0.00-0.23); BASOPHILS PERCENT AUTO 1 % (0-2); EOSINOPHILS ABSOLUTE AUTO 0.12 K/mm3 (0.00-0.68); EOSINOPHILS PERCENT AUTO 2 % (0-6); Hematocrit 42.3 % (33.0-51.0); Hemoglobin 13.5 g/dL (11.5-16.0); IMMATURE GRAN ABSOLUTE AUTO 0.01 K/mm3 (0.00-0.10); IMMATURE GRAN PERCENT AUTO 0 % (0-1); LYMPHOCYTES ABSOLUTE AUTO 1.11 K/mm3 (0.84-5.20); LYMPHOCYTES PERCENT AUTO 21 % (21-46); MONOCYTES ABSOLUTE AUTO 0.49 K/mm3 (0.16-1.47); MONOCYTES PERCENT AUTO 9 % (4-13); Mean Corpuscular HGB 30.7 pg (26.0-34.0); Mean Corpuscular HGB Conc 31.9 g/dL (31.5-36.5); Mean Corpuscular Volume 96 fL (80-100); Mean Platelet Volume 12.4 fL (9.1-12.4); NEUTROPHILS ABSOLUTE AUTO 3.53 K/mm3 (1.96-9.15); NEUTROPHILS PERCENT AUTO 66 % (41-73); Platelet Count 251 K/mm3 (150-400); RDW Coefficient Variation 13.5 % (11.7-14.2); RDW Standard Deviation 48.2 fL (35.1-46.3); White Blood Cell Count 5.32 K/mm3 (4.00-11.30)
[2021-11-01 14:11] LABS: Alanine Aminotransfer (ALT/SGP 25 U/L (12-78); Albumin, Blood 3.5 g/dL (3.4-5.0); Albumin/Globulin Ratio 0.9 (0.8-1.8); Alk Phos 105 U/L (50-136); Anion Gap 4 mmol/L (6-16); Aspartate Aminotrans (AST/SGOT 13 U/L (12-37); Bilirubin, Total 0.6 mg/dL (0.1-1.0); Blood Urea Nitrogen 19 mg/dL (8-24); Bun/Creatinine Ratio 30.8 (12.0-20.0); CO2, Blood 30 mmol/L (21-32); Calcium, Blood 9.1 mg/dL (8.5-10.1); Chloride, Blood 108 mmol/L (98-108); Creatinine, Blood 0.62 mg/dL (0.40-1.00); Globulin, Blood 3.8 g/dL (2.2-4.0); Glomerular Filtration Rate >60 (60-); Glucose, Blood 94 mg/dL (70-99); Potassium, Blood 4.1 mmol/L (3.5-5.5); Sodium, Blood 142 mmol/L (136-145); Total Protein, Blood 7.3 g/dL (6.4-8.2)
== END | disposition home or self-care (01) ==
LOC: LAB SHORT 10:30
PROVIDERS: Nurse Practitioner
DX: I89.0 Lymphedema, not elsewhere classified (principal); E03.9 Hypothyroidism, unspecified
CPT/HCPCS: 80053; 84443; 85025

== ENCOUNTER 2021-12-25 22:19 | Emergency (ER) | payer OTHER ==
[~2021-12-25] VITALS: Ht 167.6 cm; Wt 117.9 kg
[2021-12-25 23:26] LABS: BASOPHILS ABSOLUTE AUTO 0.05 K/mm3 (0.00-0.23); BASOPHILS PERCENT AUTO 1 % (0-2); EOSINOPHILS ABSOLUTE AUTO 0.11 K/mm3 (0.00-0.68); EOSINOPHILS PERCENT AUTO 2 % (0-6); Hematocrit 40.3 % (33.0-51.0); Hemoglobin 13.3 g/dL (11.5-16.0); IMMATURE GRAN ABSOLUTE AUTO 0.02 K/mm3 (0.00-0.10); IMMATURE GRAN PERCENT AUTO 0 % (0-1); LYMPHOCYTES ABSOLUTE AUTO 1.26 K/mm3 (0.84-5.20); LYMPHOCYTES PERCENT AUTO 19 % (21-46); MONOCYTES ABSOLUTE AUTO 0.63 K/mm3 (0.16-1.47); MONOCYTES PERCENT AUTO 9 % (4-13); Mean Corpuscular HGB 31.3 pg (26.0-34.0); Mean Corpuscular Volume 95 fL (80-100); Mean Platelet Volume 11.1 fL (9.1-12.4); NEUTROPHILS ABSOLUTE AUTO 4.69 K/mm3 (1.96-9.15); NEUTROPHILS PERCENT AUTO 70 % (41-73); Platelet Count 269 K/mm3 (150-400); RDW Coefficient Variation 13.2 % (11.7-14.2); RDW Standard Deviation 47.2 fL (35.1-46.3); Red Blood Cell Count 4.25 M/mm3 (3.80-5.20); White Blood Cell Count 6.76 K/mm3 (4.00-11.30)
[2021-12-25 23:49] LABS: Anion Gap 7 mmol/L (6-16); Blood Urea Nitrogen 27 mg/dL (8-24); Bun/Creatinine Ratio 42.7 (12.0-20.0); C-REACTIVE PROTEIN, EXT RANGE 0.364 mg/dL (0.000-0.300); CO2, Blood 29 mmol/L (21-32); Calcium, Blood 9.6 mg/dL (8.5-10.1); Chloride, Blood 108 mmol/L (98-108); Creatinine, Blood 0.63 mg/dL (0.40-1.00); Glomerular Filtration Rate >60 (60-); Glucose, Blood 110 mg/dL (70-99); Potassium, Blood 3.6 mmol/L (3.5-5.5); Sodium, Blood 144 mmol/L (136-145)
[2021-12-26] MEDS ORDERED: CEPH500 PO (00:15)
[2021-12-26] MEDS ORDERED: Vibramycin100 MG PO (00:15)
== END 2021-12-26 01:27 | disposition home or self-care (01) ==
LOC: ER 22:19
PROVIDERS: Emergency Medicine
DX: I89.0 Lymphedema, not elsewhere classified (principal); L03.115 Cellulitis of right lower limb; L03.116 Cellulitis of left lower limb; E03.9 Hypothyroidism, unspecified; E11.9 Type 2 diabetes mellitus without complications; Z79.899 Other long term (current) drug therapy; Z88.8 Allergy status to other drugs, medicaments and biological substances
CPT/HCPCS: 80048; 85025; 86140; 96374; 96375; 99283-25; A9270; J0690; J1885; J1940; J2405

== ENCOUNTER 2021-12-27 17:31 | Inpatient (IN) | payer OTHER ==
[~2021-12-27] VITALS: Ht 167.6 cm; Wt 117.9 kg
[2021-12-27 18:50] LABS: BASOPHILS ABSOLUTE AUTO 0.04 K/mm3 (0.00-0.23); BASOPHILS PERCENT AUTO 1 % (0-2); EOSINOPHILS ABSOLUTE AUTO 0.11 K/mm3 (0.00-0.68); EOSINOPHILS PERCENT AUTO 2 % (0-6); Hematocrit 44.3 % (33.0-51.0); Hemoglobin 14.4 g/dL (11.5-16.0); IMMATURE GRAN ABSOLUTE AUTO 0.01 K/mm3 (0.00-0.10); IMMATURE GRAN PERCENT AUTO 0 % (0-1); LYMPHOCYTES PERCENT AUTO 13 % (21-46); MONOCYTES ABSOLUTE AUTO 0.61 K/mm3 (0.16-1.47); MONOCYTES PERCENT AUTO 9 % (4-13); Mean Corpuscular HGB Conc 32.5 g/dL (31.5-36.5); Mean Corpuscular Volume 95 fL (80-100); Mean Platelet Volume 11.4 fL (9.1-12.4); NEUTROPHILS ABSOLUTE AUTO 5.05 K/mm3 (1.96-9.15); NEUTROPHILS PERCENT AUTO 75 % (41-73); Platelet Count 277 K/mm3 (150-400); RDW Coefficient Variation 13.2 % (11.7-14.2); RDW Standard Deviation 46.6 fL (35.1-46.3); Red Blood Cell Count 4.65 M/mm3 (3.80-5.20); White Blood Cell Count 6.72 K/mm3 (4.00-11.30)
[2021-12-27 19:14] LABS: Alanine Aminotransfer (ALT/SGP 27 U/L (12-78); Albumin, Blood 3.7 g/dL (3.4-5.0); Alk Phos 143 U/L (50-136); Anion Gap 6 mmol/L (6-16); Aspartate Aminotrans (AST/SGOT 20 U/L (12-37); Bilirubin, Total 0.5 mg/dL (0.1-1.0); Blood Urea Nitrogen 21 mg/dL (8-24); Bun/Creatinine Ratio 32.4 (12.0-20.0); CO2, Blood 29 mmol/L (21-32); Calcium, Blood 9.5 mg/dL (8.5-10.1); Chloride, Blood 107 mmol/L (98-108); Creatinine, Blood 0.65 mg/dL (0.40-1.00); Globulin, Blood 3.8 g/dL (2.2-4.0); Glomerular Filtration Rate >60 (60-); Glucose, Blood 101 mg/dL (70-99); Potassium, Blood 3.9 mmol/L (3.5-5.5); Sodium, Blood 142 mmol/L (136-145); Total Protein, Blood 7.5 g/dL (6.4-8.2)
[2021-12-28 07:16] LABS: Free Thyroxine 1.6 ng/dL (0.70-1.60)
[2021-12-28 07:37] LABS: BASOPHILS ABSOLUTE AUTO 0.03 K/mm3 (0.00-0.23); BASOPHILS PERCENT AUTO 0 % (0-2); EOSINOPHILS ABSOLUTE AUTO 0.01 K/mm3 (0.00-0.68); EOSINOPHILS PERCENT AUTO 0 % (0-6); Hematocrit 39.4 % (33.0-51.0); Hemoglobin 13.1 g/dL (11.5-16.0); IMMATURE GRAN ABSOLUTE AUTO 0.06 K/mm3 (0.00-0.10); IMMATURE GRAN PERCENT AUTO 1 % (0-1); LYMPHOCYTES ABSOLUTE AUTO 0.41 K/mm3 (0.84-5.20); LYMPHOCYTES PERCENT AUTO 4 % (21-46); MONOCYTES PERCENT AUTO 9 % (4-13); Mean Corpuscular HGB Conc 33.2 g/dL (31.5-36.5); Mean Corpuscular Volume 93 fL (80-100); NEUTROPHILS ABSOLUTE AUTO 8.55 K/mm3 (1.96-9.15); NEUTROPHILS PERCENT AUTO 86 % (41-73); Platelet Count 221 K/mm3 (150-400); RDW Coefficient Variation 13.2 % (11.7-14.2); Red Blood Cell Count 4.22 M/mm3 (3.80-5.20); White Blood Cell Count 9.96 K/mm3 (4.00-11.30)
[2021-12-28 07:48] LABS: Alanine Aminotransfer (ALT/SGP 26 U/L (12-78); Albumin, Blood 2.9 g/dL (3.4-5.0); Albumin/Globulin Ratio 0.8 (0.8-1.8); Alk Phos 115 U/L (50-136); Anion Gap 9 mmol/L (6-16); Aspartate Aminotrans (AST/SGOT 23 U/L (12-37); Bilirubin, Total 0.7 mg/dL (0.1-1.0); Blood Urea Nitrogen 22 mg/dL (8-24); Bun/Creatinine Ratio 34.2 (12.0-20.0); CO2, Blood 26 mmol/L (21-32); Calcium, Blood 8.6 mg/dL (8.5-10.1); Chloride, Blood 108 mmol/L (98-108); Creatinine, Blood 0.64 mg/dL (0.40-1.00); Globulin, Blood 3.5 g/dL (2.2-4.0); Glomerular Filtration Rate >60 (60-); Glucose, Blood 123 mg/dL (70-99); Potassium, Blood 3.4 mmol/L (3.5-5.5); Sodium, Blood 143 mmol/L (136-145); Total Protein, Blood 6.4 g/dL (6.4-8.2)
--- NOTE | 2021-12-28 13:28 | NUR ---
RN recvd call from [facility] and the staff stated that they will not be able to come up to the unit to see this patient today or tomorrow. RN will notify provider,
--- NOTE | 2021-12-28 16:30 | NUR ---
Patient was alert and orient, in good spirits. Affect was pleasant and mood was congruent. Her legs were wrapped with Unna flex, Kerlix, then coban. Patient was able to express her needs by using call light. She complained of pain and recvd Tylenol with morning meds. Also she, continued on ABX as scheduled. Cont to monitor
[2021-12-28] MEDS ORDERED: LEVOTHYROXINE200 MCG PO (19:26)
[2021-12-28] MEDS ORDERED: SYNTHROID50 MC2 PO (19:27)
--- NOTE | 2021-12-29 04:04 | NUR ---
SUMMARY: PT A/OX4, INDEPENDENT IN ROOM AND CALLS APPROPRIATELY TO SPECIFY NEEDS. BLE CELLULITIS W/WEEPING PERSISTS BUT IS IMPROVING W/DIURESIS. DX'S REMAIN C/D/I- UNNA FLEX, KERLIX AND COBAN TO BE CHANGED Q3D AND PRN. PAIN REPORTED 5/10 TO BACKS OF LEGS W/TYLENOL RECIEVED FOR TOLERABLE RELIEF. IV ABX ADMIN PER EMAR. SHE C/O OF MILD ABDO DISCOMFORT AT HS R/T NO BM X3+ DAYS, BOWEL PROTOCOL MEDS RX'D AND COMMENCED THIS SHIFT. NO ACUTE CHANGES, VSS AND AFEBRILE. WCTM AND REPORT TO DAY RN.
[2021-12-29 05:07] LABS: BASOPHILS ABSOLUTE AUTO 0.04 K/mm3 (0.00-0.23); BASOPHILS PERCENT AUTO 1 % (0-2); EOSINOPHILS ABSOLUTE AUTO 0.13 K/mm3 (0.00-0.68); EOSINOPHILS PERCENT AUTO 2 % (0-6); Hematocrit 35.2 % (33.0-51.0); Hemoglobin 11.3 g/dL (11.5-16.0); IMMATURE GRAN ABSOLUTE AUTO 0.01 K/mm3 (0.00-0.10); IMMATURE GRAN PERCENT AUTO 0 % (0-1); LYMPHOCYTES ABSOLUTE AUTO 1.14 K/mm3 (0.84-5.20); LYMPHOCYTES PERCENT AUTO 21 % (21-46); MONOCYTES ABSOLUTE AUTO 0.51 K/mm3 (0.16-1.47); MONOCYTES PERCENT AUTO 9 % (4-13); Mean Corpuscular HGB 30.7 pg (26.0-34.0); Mean Corpuscular HGB Conc 32.1 g/dL (31.5-36.5); Mean Corpuscular Volume 96 fL (80-100); NEUTROPHILS ABSOLUTE AUTO 3.74 K/mm3 (1.96-9.15); NEUTROPHILS PERCENT AUTO 67 % (41-73); Platelet Count 209 K/mm3 (150-400); RDW Coefficient Variation 13.3 % (11.7-14.2); RDW Standard Deviation 47.2 fL (35.1-46.3); Red Blood Cell Count 3.68 M/mm3 (3.80-5.20); White Blood Cell Count 5.57 K/mm3 (4.00-11.30)
[2021-12-29] MEDS ORDERED: SPIR25 PO (11:39)
[2021-12-29] MEDS ORDERED: VISBIOME 112.51 EACH PO (11:39)
[2021-12-29] MEDS ORDERED: CLIN150 PO (11:40)
--- NOTE | 2021-12-29 14:15 | NUR ---
SUMMARY PT DISCHARGED TO HOME, PT VERBALIZED UNDERSTANDING OF DISCHARGE INSTRUCTIONS REGARDING MEDS AND FOLLOW UP, JAIR SCHMIDT CHANGED PER DR SMITH, PT TAKEN OUT VIA WHEELCHAIR BY STAFF
== END 2021-12-29 14:02 | disposition home or self-care (01) | DRG 603 ==
LOC: ER 17:31 → MEDS 12-28 00:32
PROVIDERS: Internal Medicine; Physician Assistant; ADMIT Internal Medicine
DX: L03.116 Cellulitis of left lower limb (principal); Z68.41 Body mass index [BMI] 40.0-44.9, adult; E11.9 Type 2 diabetes mellitus without complications; L03.115 Cellulitis of right lower limb; L30.9 Dermatitis, unspecified; I89.0 Lymphedema, not elsewhere classified; E03.9 Hypothyroidism, unspecified; E66.01 Morbid (severe) obesity due to excess calories; I10 Essential (primary) hypertension; Z79.899 Other long term (current) drug therapy; Z88.8 Allergy status to other drugs, medicaments and biological substances; Z90.49 Acquired absence of other specified parts of digestive tract; Z90.710 Acquired absence of both cervix and uterus; Z98.890 Other specified postprocedural states
CPT/HCPCS: 36415; 73590; 80053; 83605; 84439; 84443; 85025; 87040; 96365; 96366; 96368; 96375; 99284-25; A9270; J0690; J1650; J2270; J3370; J7050

== ENCOUNTER → 2022-01-23 | Outpatient (CLI) | payer OTHER ==
[~2022-01-23] MED LIST changes: +BENZ100A PO; +CLIN150 PO; +CLINDAMYCI900 MG/52 IV; +LEVOTHYROXINE200 MCG PO; +SENNA LAXATIVE8.6 MG PO; +SYNTHROID50 MC2 PO; +TRAM50 PO; +TRAZ50 PO; +VISBIOME 112.51 EACH PO; +Vancomycin HCl500 MG; +Vancomycin1 GM/2501 IV
== END | disposition home or self-care (01) ==
LOC: LAB SHORT 16:35 → LAB 16:35
DX: L03.115 Cellulitis of right lower limb (principal)
CPT/HCPCS: 87070; 87205

== ENCOUNTER 2022-01-24 21:45 | Emergency (ER) | payer OTHER ==
[~2022-01-24] VITALS: Ht 167.6 cm; Wt 117.0 kg
[~2022-01-24 21:45] MED LIST changes: -BENZ100A PO; -CLINDAMYCI900 MG/52 IV; -SENNA LAXATIVE8.6 MG PO; -TRAM50 PO; -TRAZ50 PO; -Vancomycin HCl500 MG; -Vancomycin1 GM/2501 IV
[2022-01-24 22:22] LABS: BASOPHILS ABSOLUTE AUTO 0.06 K/mm3 (0.00-0.23); BASOPHILS PERCENT AUTO 1 % (0-2); EOSINOPHILS ABSOLUTE AUTO 0.24 K/mm3 (0.00-0.68); EOSINOPHILS PERCENT AUTO 4 % (0-6); Hematocrit 42.6 % (33.0-51.0); Hemoglobin 13.9 g/dL (11.5-16.0); IMMATURE GRAN ABSOLUTE AUTO 0.02 K/mm3 (0.00-0.10); IMMATURE GRAN PERCENT AUTO 0 % (0-1); LYMPHOCYTES ABSOLUTE AUTO 1.26 K/mm3 (0.84-5.20); LYMPHOCYTES PERCENT AUTO 23 % (21-46); MONOCYTES ABSOLUTE AUTO 0.59 K/mm3 (0.16-1.47); MONOCYTES PERCENT AUTO 11 % (4-13); Mean Corpuscular HGB Conc 32.6 g/dL (31.5-36.5); Mean Corpuscular Volume 95 fL (80-100); Mean Platelet Volume 11.4 fL (9.1-12.4); NEUTROPHILS ABSOLUTE AUTO 3.31 K/mm3 (1.96-9.15); NEUTROPHILS PERCENT AUTO 60 % (41-73); Platelet Count 261 K/mm3 (150-400); RDW Coefficient Variation 13.2 % (11.7-14.2); RDW Standard Deviation 46.7 fL (35.1-46.3); Red Blood Cell Count 4.49 M/mm3 (3.80-5.20); White Blood Cell Count 5.48 K/mm3 (4.00-11.30)
[2022-01-24 22:44] LABS: Alanine Aminotransfer (ALT/SGP 26 U/L (12-78); Albumin, Blood 3.2 g/dL (3.4-5.0); Albumin/Globulin Ratio 0.7 (0.8-1.8); Alk Phos 119 U/L (50-136); Anion Gap 1 mmol/L (6-16); Aspartate Aminotrans (AST/SGOT 25 U/L (12-37); Bilirubin, Total 0.5 mg/dL (0.1-1.0); Blood Urea Nitrogen 22 mg/dL (8-24); Bun/Creatinine Ratio 34.6 (12.0-20.0); CO2, Blood 31 mmol/L (21-32); Calcium, Blood 9.7 mg/dL (8.5-10.1); Chloride, Blood 109 mmol/L (98-108); Creatinine, Blood 0.64 mg/dL (0.40-1.00); Globulin, Blood 4.5 g/dL (2.2-4.0); Glomerular Filtration Rate >60 (60-); Glucose, Blood 113 mg/dL (70-99); Potassium, Blood 4.5 mmol/L (3.5-5.5); Sodium, Blood 141 mmol/L (136-145); Total Protein, Blood 7.7 g/dL (6.4-8.2)
[2022-01-25] MEDS ORDERED: CEPH500 PO (00:49)
[2022-01-25] MEDS ORDERED: VISBIOME 112.51 EACH PO (17:57)
== END 2022-01-25 04:34 | disposition home or self-care (01) ==
LOC: ER 21:45
PROVIDERS: Student in an Organized Health Care Education/Training Program
DX: L03.115 Cellulitis of right lower limb (principal); I87.2 Venous insufficiency (chronic) (peripheral); I89.0 Lymphedema, not elsewhere classified; E11.9 Type 2 diabetes mellitus without complications; E03.9 Hypothyroidism, unspecified; Z79.899 Other long term (current) drug therapy
CPT/HCPCS: 36415; 80053; 85025; 96365; 96366; 99283-25; A9270; J3370; J7050

== ENCOUNTER 2022-01-25 14:18 | Day surgery (SDC) | payer OTHER ==
[~2022-01-25] VITALS: Ht 167.6 cm; Wt 128.9 kg
[2022-01-25] MEDS ORDERED: VISBIOME 112.51 EACH PO (17:57)
== END 2022-01-25 18:27 | disposition home or self-care (01) ==
LOC: ATC 14:18
DX: L03.116 Cellulitis of left lower limb (principal); L03.115 Cellulitis of right lower limb; B95.62 Methicillin resistant Staphylococcus aureus infection as the cause of diseases classified elsewhere; E03.9 Hypothyroidism, unspecified; E11.9 Type 2 diabetes mellitus without complications
CPT/HCPCS: 96365; 96366; C1751; J3370; J7050

== ENCOUNTER 2022-01-26 07:02 | Day surgery (SDC) | payer OTHER | END 2022-01-26 16:51 | disposition home or self-care (01) | LOC: ATC 07:02 | DX: L03.90 Cellulitis, unspecified (principal); E11.9 Type 2 diabetes mellitus without complications; Z91.048 Other nonmedicinal substance allergy status; Z86.14 Personal history of Methicillin resistant Staphylococcus aureus infection | CPT/HCPCS: 96365; 96366; J3370; J7050 ==

== ENCOUNTER 2022-01-27 02:18 | Day surgery (SDC) | payer OTHER ==
[2022-01-27 08:48] LABS: Creatinine, Blood 0.65 mg/dL (0.40-1.00); Glomerular Filtration Rate >60 (60-); Vancomycin, Trough 15.5 ug/mL (5.0-10.0)
[2022-01-28] MEDS ORDERED: Vancomycin1 GM/2501 IV (10:44)
== END 2022-01-27 23:22 | disposition home or self-care (01) ==
LOC: ATC 02:18
PROVIDERS: Student in an Organized Health Care Education/Training Program
DX: L03.116 Cellulitis of left lower limb (principal); L03.115 Cellulitis of right lower limb; E03.9 Hypothyroidism, unspecified; E11.9 Type 2 diabetes mellitus without complications; I10 Essential (primary) hypertension; Z91.048 Other nonmedicinal substance allergy status
CPT/HCPCS: 80202; 82565; 96365; 96366; J3370; J7050

== ENCOUNTER 2022-01-28 08:14 | Day surgery (SDC) | payer OTHER ==
[2022-01-28] MEDS ORDERED: Vancomycin1 GM/2501 IV (10:44)
== END 2022-01-28 17:56 | disposition home or self-care (01) ==
LOC: ATC 08:14
DX: L03.116 Cellulitis of left lower limb (principal); L03.115 Cellulitis of right lower limb; E03.9 Hypothyroidism, unspecified; I10 Essential (primary) hypertension; E66.01 Morbid (severe) obesity due to excess calories
CPT/HCPCS: 96365; 96366; J3370; J7050

== ENCOUNTER 2022-01-29 01:01 | Day surgery (SDC) | payer OTHER ==
[~2022-01-29 01:01] MED LIST changes: +Vancomycin1 GM/2501 IV
== END 2022-01-29 17:52 | disposition home or self-care (01) ==
LOC: ATC 01:01
DX: L03.115 Cellulitis of right lower limb (principal); E11.9 Type 2 diabetes mellitus without complications; E66.9 Obesity, unspecified; E89.0 Postprocedural hypothyroidism; Z68.41 Body mass index [BMI] 40.0-44.9, adult
CPT/HCPCS: 96365; 96366; J3370; J7050

== ENCOUNTER 2022-01-31 01:55 | Day surgery (SDC) | payer OTHER | END 2022-01-31 17:55 | disposition home or self-care (01) | LOC: ATC 01:55 | DX: L03.119 Cellulitis of unspecified part of limb (principal); I89.0 Lymphedema, not elsewhere classified; I10 Essential (primary) hypertension; E03.9 Hypothyroidism, unspecified; E66.01 Morbid (severe) obesity due to excess calories; Z91.048 Other nonmedicinal substance allergy status; E11.9 Type 2 diabetes mellitus without complications | CPT/HCPCS: 96365; 96366; J3370; J7050 ==

== ENCOUNTER → 2022-02-02 | Outpatient (CLI) | payer OTHER ==
[2022-02-02 20:28] LABS: Anion Gap 8 mmol/L (6-16); Blood Urea Nitrogen 22 mg/dL (8-24); Bun/Creatinine Ratio 31.6 (12.0-20.0); CO2, Blood 27 mmol/L (21-32); Chloride, Blood 108 mmol/L (98-108); Glomerular Filtration Rate >60 (60-); Glucose, Blood 97 mg/dL (70-99); Potassium, Blood 4.3 mmol/L (3.5-5.5); Sodium, Blood 143 mmol/L (136-145)
== END | disposition home or self-care (01) ==
LOC: LAB SHORT 16:30
PROVIDERS: Nurse Practitioner
DX: I89.0 Lymphedema, not elsewhere classified (principal); E03.9 Hypothyroidism, unspecified
CPT/HCPCS: 80048; 84443

== ENCOUNTER 2022-02-06 01:44 | Day surgery (SDC) | payer OTHER | END 2022-02-06 23:25 | disposition home or self-care (01) | LOC: WOUND 01:44 | DX: I87.313 Chronic venous hypertension (idiopathic) with ulcer of bilateral lower extremity (principal); L97.821 Non-pressure chronic ulcer of other part of left lower leg limited to breakdown of skin; L97.811 Non-pressure chronic ulcer of other part of right lower leg limited to breakdown of skin; I87.2 Venous insufficiency (chronic) (peripheral); I73.9 Peripheral vascular disease, unspecified; E66.01 Morbid (severe) obesity due to excess calories; E03.9 Hypothyroidism, unspecified; J45.909 Unspecified asthma, uncomplicated; Z68.41 Body mass index [BMI] 40.0-44.9, adult; E78.5 Hyperlipidemia, unspecified; Z88.5 Allergy status to narcotic agent; Z91.048 Other nonmedicinal substance allergy status; Z86.14 Personal history of Methicillin resistant Staphylococcus aureus infection | CPT/HCPCS: G0463 ==

== ENCOUNTER 2022-02-08 00:30 | Day surgery (SDC) | payer OTHER | END 2022-02-08 23:01 | disposition home or self-care (01) | LOC: WOUND 00:30 | DX: I87.313 Chronic venous hypertension (idiopathic) with ulcer of bilateral lower extremity (principal); L97.821 Non-pressure chronic ulcer of other part of left lower leg limited to breakdown of skin; L97.822 Non-pressure chronic ulcer of other part of left lower leg with fat layer exposed; I87.2 Venous insufficiency (chronic) (peripheral) ==

== ENCOUNTER 2022-02-10 00:31 | Day surgery (SDC) | payer OTHER | END 2022-02-10 23:32 | disposition home or self-care (01) | LOC: WOUND 00:31 | DX: I87.312 Chronic venous hypertension (idiopathic) with ulcer of left lower extremity (principal); L97.821 Non-pressure chronic ulcer of other part of left lower leg limited to breakdown of skin; L97.822 Non-pressure chronic ulcer of other part of left lower leg with fat layer exposed; I87.2 Venous insufficiency (chronic) (peripheral) ==

== ENCOUNTER 2022-02-13 00:59 | Day surgery (SDC) | payer OTHER | END 2022-02-13 23:46 | disposition home or self-care (01) | LOC: WOUND 00:59 | DX: I87.313 Chronic venous hypertension (idiopathic) with ulcer of bilateral lower extremity (principal); L97.811 Non-pressure chronic ulcer of other part of right lower leg limited to breakdown of skin; L97.821 Non-pressure chronic ulcer of other part of left lower leg limited to breakdown of skin; I87.2 Venous insufficiency (chronic) (peripheral); I73.9 Peripheral vascular disease, unspecified; E66.01 Morbid (severe) obesity due to excess calories; Z68.41 Body mass index [BMI] 40.0-44.9, adult ==

== ENCOUNTER 2022-02-15 01:25 | Day surgery (SDC) | payer OTHER | END 2022-02-15 23:20 | disposition home or self-care (01) | LOC: WOUND 01:25 | DX: L97.811 Non-pressure chronic ulcer of other part of right lower leg limited to breakdown of skin (principal); L97.821 Non-pressure chronic ulcer of other part of left lower leg limited to breakdown of skin; I87.313 Chronic venous hypertension (idiopathic) with ulcer of bilateral lower extremity; I87.2 Venous insufficiency (chronic) (peripheral); I73.9 Peripheral vascular disease, unspecified ==

== ENCOUNTER 2022-02-17 00:35 | Day surgery (SDC) | payer OTHER | END 2022-02-17 23:14 | disposition home or self-care (01) | LOC: WOUND 00:35 | DX: I87.313 Chronic venous hypertension (idiopathic) with ulcer of bilateral lower extremity (principal); I87.2 Venous insufficiency (chronic) (peripheral); L97.821 Non-pressure chronic ulcer of other part of left lower leg limited to breakdown of skin; L97.811 Non-pressure chronic ulcer of other part of right lower leg limited to breakdown of skin; I73.9 Peripheral vascular disease, unspecified ==

== ENCOUNTER 2022-02-20 08:00 | Day surgery (SDC) | payer OTHER | END 2022-02-20 23:59 | disposition home or self-care (01) | LOC: WOUND 08:00 | DX: I87.313 Chronic venous hypertension (idiopathic) with ulcer of bilateral lower extremity (principal); L97.812 Non-pressure chronic ulcer of other part of right lower leg with fat layer exposed; L97.822 Non-pressure chronic ulcer of other part of left lower leg with fat layer exposed; I89.0 Lymphedema, not elsewhere classified; I73.9 Peripheral vascular disease, unspecified; E66.01 Morbid (severe) obesity due to excess calories; E78.5 Hyperlipidemia, unspecified ==

== ENCOUNTER 2022-02-22 02:19 | Day surgery (SDC) | payer OTHER | END 2022-02-22 23:20 | disposition home or self-care (01) | LOC: WOUND 02:19 | DX: I87.313 Chronic venous hypertension (idiopathic) with ulcer of bilateral lower extremity (principal); I87.2 Venous insufficiency (chronic) (peripheral); L97.821 Non-pressure chronic ulcer of other part of left lower leg limited to breakdown of skin; L97.811 Non-pressure chronic ulcer of other part of right lower leg limited to breakdown of skin; I73.9 Peripheral vascular disease, unspecified ==

== ENCOUNTER 2022-02-24 03:09 | Day surgery (SDC) | payer OTHER | END 2022-02-24 23:21 | disposition home or self-care (01) | LOC: WOUND 03:09 | DX: I87.313 Chronic venous hypertension (idiopathic) with ulcer of bilateral lower extremity (principal); L97.821 Non-pressure chronic ulcer of other part of left lower leg limited to breakdown of skin; L97.811 Non-pressure chronic ulcer of other part of right lower leg limited to breakdown of skin; I87.2 Venous insufficiency (chronic) (peripheral); I73.9 Peripheral vascular disease, unspecified ==

== ENCOUNTER 2022-02-27 08:43 | Day surgery (SDC) | payer OTHER | END 2022-02-27 22:49 | disposition home or self-care (01) | LOC: WOUND 08:43 | DX: I87.313 Chronic venous hypertension (idiopathic) with ulcer of bilateral lower extremity (principal); L97.821 Non-pressure chronic ulcer of other part of left lower leg limited to breakdown of skin; L97.811 Non-pressure chronic ulcer of other part of right lower leg limited to breakdown of skin; I87.2 Venous insufficiency (chronic) (peripheral); I73.9 Peripheral vascular disease, unspecified ==

== ENCOUNTER 2022-03-01 03:09 | Day surgery (SDC) | payer OTHER | END 2022-03-01 23:13 | disposition home or self-care (01) | LOC: WOUND 03:09 | DX: I87.313 Chronic venous hypertension (idiopathic) with ulcer of bilateral lower extremity (principal); L97.812 Non-pressure chronic ulcer of other part of right lower leg with fat layer exposed; L97.822 Non-pressure chronic ulcer of other part of left lower leg with fat layer exposed; E66.01 Morbid (severe) obesity due to excess calories; I87.2 Venous insufficiency (chronic) (peripheral); I73.9 Peripheral vascular disease, unspecified ==

== ENCOUNTER 2022-03-03 00:48 | Day surgery (SDC) | payer OTHER | END 2022-03-03 23:00 | disposition home or self-care (01) | LOC: WOUND 00:48 | DX: I87.313 Chronic venous hypertension (idiopathic) with ulcer of bilateral lower extremity (principal); L97.821 Non-pressure chronic ulcer of other part of left lower leg limited to breakdown of skin; L97.811 Non-pressure chronic ulcer of other part of right lower leg limited to breakdown of skin; I87.2 Venous insufficiency (chronic) (peripheral); I73.9 Peripheral vascular disease, unspecified ==

== ENCOUNTER 2022-03-06 01:01 | Day surgery (SDC) | payer OTHER | END 2022-03-06 23:07 | disposition home or self-care (01) | LOC: WOUND 01:01 | DX: I87.313 Chronic venous hypertension (idiopathic) with ulcer of bilateral lower extremity (principal); L97.819 Non-pressure chronic ulcer of other part of right lower leg with unspecified severity; L97.811 Non-pressure chronic ulcer of other part of right lower leg limited to breakdown of skin; I73.9 Peripheral vascular disease, unspecified; I87.2 Venous insufficiency (chronic) (peripheral) ==

== ENCOUNTER 2022-03-08 01:06 | Day surgery (SDC) | payer OTHER | END 2022-03-08 22:45 | disposition home or self-care (01) | LOC: WOUND 01:06 | DX: I87.313 Chronic venous hypertension (idiopathic) with ulcer of bilateral lower extremity (principal); L97.819 Non-pressure chronic ulcer of other part of right lower leg with unspecified severity; L97.829 Non-pressure chronic ulcer of other part of left lower leg with unspecified severity; E66.01 Morbid (severe) obesity due to excess calories; I73.9 Peripheral vascular disease, unspecified; I87.2 Venous insufficiency (chronic) (peripheral) | CPT/HCPCS: G0463 ==

== ENCOUNTER 2022-03-10 01:18 | Day surgery (SDC) | payer OTHER | END 2022-03-10 22:49 | disposition home or self-care (01) | LOC: WOUND 01:18 | DX: I87.313 Chronic venous hypertension (idiopathic) with ulcer of bilateral lower extremity (principal); L97.821 Non-pressure chronic ulcer of other part of left lower leg limited to breakdown of skin; L97.811 Non-pressure chronic ulcer of other part of right lower leg limited to breakdown of skin; I87.2 Venous insufficiency (chronic) (peripheral); I73.9 Peripheral vascular disease, unspecified ==

== ENCOUNTER 2022-03-13 01:04 | Day surgery (SDC) | payer OTHER | END 2022-03-13 22:54 | disposition home or self-care (01) | LOC: WOUND 01:04 | DX: I87.313 Chronic venous hypertension (idiopathic) with ulcer of bilateral lower extremity (principal); I87.2 Venous insufficiency (chronic) (peripheral); L97.821 Non-pressure chronic ulcer of other part of left lower leg limited to breakdown of skin; L97.811 Non-pressure chronic ulcer of other part of right lower leg limited to breakdown of skin; I73.9 Peripheral vascular disease, unspecified ==

== ENCOUNTER 2022-03-15 00:35 | Day surgery (SDC) | payer OTHER | END 2022-03-15 22:49 | disposition home or self-care (01) | LOC: WOUND 00:35 | DX: I87.313 Chronic venous hypertension (idiopathic) with ulcer of bilateral lower extremity (principal); L97.811 Non-pressure chronic ulcer of other part of right lower leg limited to breakdown of skin; L97.821 Non-pressure chronic ulcer of other part of left lower leg limited to breakdown of skin; I87.2 Venous insufficiency (chronic) (peripheral); I73.9 Peripheral vascular disease, unspecified; E66.01 Morbid (severe) obesity due to excess calories; Z68.41 Body mass index [BMI] 40.0-44.9, adult | CPT/HCPCS: G0463 ==

== ENCOUNTER 2022-03-17 00:31 | Day surgery (SDC) | payer OTHER | END 2022-03-17 22:53 | disposition home or self-care (01) | LOC: WOUND 00:31 | DX: I87.313 Chronic venous hypertension (idiopathic) with ulcer of bilateral lower extremity (principal); L97.821 Non-pressure chronic ulcer of other part of left lower leg limited to breakdown of skin; L97.811 Non-pressure chronic ulcer of other part of right lower leg limited to breakdown of skin; I87.2 Venous insufficiency (chronic) (peripheral); I73.9 Peripheral vascular disease, unspecified ==

== ENCOUNTER 2022-03-20 00:52 | Day surgery (SDC) | payer OTHER | END 2022-03-20 23:25 | disposition home or self-care (01) | LOC: WOUND 00:52 | DX: I87.313 Chronic venous hypertension (idiopathic) with ulcer of bilateral lower extremity (principal); L97.821 Non-pressure chronic ulcer of other part of left lower leg limited to breakdown of skin; L97.811 Non-pressure chronic ulcer of other part of right lower leg limited to breakdown of skin; I87.2 Venous insufficiency (chronic) (peripheral); I73.9 Peripheral vascular disease, unspecified ==

== ENCOUNTER 2022-03-22 02:22 | Day surgery (SDC) | payer OTHER | END 2022-03-22 23:38 | disposition home or self-care (01) | LOC: WOUND 02:22 | DX: I89.0 Lymphedema, not elsewhere classified (principal); I87.313 Chronic venous hypertension (idiopathic) with ulcer of bilateral lower extremity; L97.821 Non-pressure chronic ulcer of other part of left lower leg limited to breakdown of skin; L97.811 Non-pressure chronic ulcer of other part of right lower leg limited to breakdown of skin; E66.01 Morbid (severe) obesity due to excess calories; E78.5 Hyperlipidemia, unspecified; Z68.41 Body mass index [BMI] 40.0-44.9, adult ==

== ENCOUNTER 2022-03-24 01:07 | Day surgery (SDC) | payer OTHER | END 2022-03-24 23:04 | disposition home or self-care (01) | LOC: WOUND 01:07 | DX: I87.313 Chronic venous hypertension (idiopathic) with ulcer of bilateral lower extremity (principal); L97.821 Non-pressure chronic ulcer of other part of left lower leg limited to breakdown of skin; L97.811 Non-pressure chronic ulcer of other part of right lower leg limited to breakdown of skin; I87.2 Venous insufficiency (chronic) (peripheral); I73.9 Peripheral vascular disease, unspecified ==

== ENCOUNTER 2022-03-27 01:28 | Day surgery (SDC) | payer OTHER | END 2022-03-27 22:45 | disposition home or self-care (01) | LOC: WOUND 01:28 | DX: I87.313 Chronic venous hypertension (idiopathic) with ulcer of bilateral lower extremity (principal); L97.821 Non-pressure chronic ulcer of other part of left lower leg limited to breakdown of skin; L97.811 Non-pressure chronic ulcer of other part of right lower leg limited to breakdown of skin; I87.2 Venous insufficiency (chronic) (peripheral); I73.9 Peripheral vascular disease, unspecified | CPT/HCPCS: A9270 ==

== ENCOUNTER 2022-03-29 08:32 | Day surgery (SDC) | payer OTHER | END 2022-03-29 22:56 | disposition home or self-care (01) | LOC: WOUND 08:32 | DX: I87.313 Chronic venous hypertension (idiopathic) with ulcer of bilateral lower extremity (principal); I87.2 Venous insufficiency (chronic) (peripheral); L97.821 Non-pressure chronic ulcer of other part of left lower leg limited to breakdown of skin; L97.811 Non-pressure chronic ulcer of other part of right lower leg limited to breakdown of skin; I73.9 Peripheral vascular disease, unspecified; E66.01 Morbid (severe) obesity due to excess calories ==

== ENCOUNTER 2022-03-31 00:55 | Day surgery (SDC) | payer OTHER | END 2022-03-31 23:25 | disposition home or self-care (01) | LOC: WOUND 00:55 | DX: I87.313 Chronic venous hypertension (idiopathic) with ulcer of bilateral lower extremity (principal); L97.821 Non-pressure chronic ulcer of other part of left lower leg limited to breakdown of skin; L97.811 Non-pressure chronic ulcer of other part of right lower leg limited to breakdown of skin; I87.2 Venous insufficiency (chronic) (peripheral); I73.9 Peripheral vascular disease, unspecified; E78.5 Hyperlipidemia, unspecified; E66.01 Morbid (severe) obesity due to excess calories ==

== ENCOUNTER 2022-04-03 08:00 | Day surgery (SDC) | payer OTHER | END 2022-04-03 23:59 | disposition home or self-care (01) | LOC: WOUND 08:00 | DX: I87.313 Chronic venous hypertension (idiopathic) with ulcer of bilateral lower extremity (principal); I87.2 Venous insufficiency (chronic) (peripheral); L97.821 Non-pressure chronic ulcer of other part of left lower leg limited to breakdown of skin; L97.919 Non-pressure chronic ulcer of unspecified part of right lower leg with unspecified severity ==

== ENCOUNTER 2022-04-05 01:02 | Day surgery (SDC) | payer OTHER | END 2022-04-05 23:23 | disposition home or self-care (01) | LOC: WOUND 01:02 | DX: I87.313 Chronic venous hypertension (idiopathic) with ulcer of bilateral lower extremity (principal); L97.821 Non-pressure chronic ulcer of other part of left lower leg limited to breakdown of skin; L97.811 Non-pressure chronic ulcer of other part of right lower leg limited to breakdown of skin; I87.2 Venous insufficiency (chronic) (peripheral); I73.9 Peripheral vascular disease, unspecified; E78.5 Hyperlipidemia, unspecified; E66.01 Morbid (severe) obesity due to excess calories ==

== ENCOUNTER 2022-04-07 05:30 | Day surgery (SDC) | payer OTHER | END 2022-04-07 23:01 | disposition home or self-care (01) | LOC: WOUND 05:30 | DX: I87.313 Chronic venous hypertension (idiopathic) with ulcer of bilateral lower extremity (principal); L97.821 Non-pressure chronic ulcer of other part of left lower leg limited to breakdown of skin; L97.811 Non-pressure chronic ulcer of other part of right lower leg limited to breakdown of skin; I87.2 Venous insufficiency (chronic) (peripheral); I73.9 Peripheral vascular disease, unspecified ==

== ENCOUNTER 2022-04-11 02:02 | Day surgery (SDC) | payer OTHER | END 2022-04-11 23:15 | disposition home or self-care (01) | LOC: WOUND 02:02 | DX: I87.313 Chronic venous hypertension (idiopathic) with ulcer of bilateral lower extremity (principal); L97.229 Non-pressure chronic ulcer of left calf with unspecified severity; L97.212 Non-pressure chronic ulcer of right calf with fat layer exposed; I87.2 Venous insufficiency (chronic) (peripheral); I73.9 Peripheral vascular disease, unspecified | CPT/HCPCS: G0463 ==

== ENCOUNTER 2022-04-14 03:39 | Day surgery (SDC) | payer OTHER | END 2022-04-14 23:18 | disposition home or self-care (01) | LOC: WOUND 03:39 | DX: I87.313 Chronic venous hypertension (idiopathic) with ulcer of bilateral lower extremity (principal); L97.821 Non-pressure chronic ulcer of other part of left lower leg limited to breakdown of skin; L97.811 Non-pressure chronic ulcer of other part of right lower leg limited to breakdown of skin; I87.2 Venous insufficiency (chronic) (peripheral); I73.9 Peripheral vascular disease, unspecified ==

== ENCOUNTER 2022-04-17 01:03 | Day surgery (SDC) | payer OTHER | END 2022-04-17 23:24 | disposition home or self-care (01) | LOC: WOUND 01:03 | DX: I87.313 Chronic venous hypertension (idiopathic) with ulcer of bilateral lower extremity (principal); I87.2 Venous insufficiency (chronic) (peripheral); L97.821 Non-pressure chronic ulcer of other part of left lower leg limited to breakdown of skin; L97.811 Non-pressure chronic ulcer of other part of right lower leg limited to breakdown of skin; I73.9 Peripheral vascular disease, unspecified ==

== ENCOUNTER 2022-04-19 01:24 | Day surgery (SDC) | payer OTHER | END 2022-04-24 23:42 | disposition home or self-care (01) | LOC: WOUND 01:24 | DX: I87.313 Chronic venous hypertension (idiopathic) with ulcer of bilateral lower extremity (principal); L97.212 Non-pressure chronic ulcer of right calf with fat layer exposed; L97.812 Non-pressure chronic ulcer of other part of right lower leg with fat layer exposed; L97.222 Non-pressure chronic ulcer of left calf with fat layer exposed; I89.0 Lymphedema, not elsewhere classified; E78.5 Hyperlipidemia, unspecified ==

== ENCOUNTER 2022-04-21 08:00 | Day surgery (SDC) | payer OTHER | END 2022-04-21 23:59 | disposition home or self-care (01) | LOC: WOUND 08:00 | DX: I87.313 Chronic venous hypertension (idiopathic) with ulcer of bilateral lower extremity (principal); L97.212 Non-pressure chronic ulcer of right calf with fat layer exposed; L97.222 Non-pressure chronic ulcer of left calf with fat layer exposed; I89.0 Lymphedema, not elsewhere classified | CPT/HCPCS: A9270 ==

== ENCOUNTER 2022-04-24 00:24 | Day surgery (SDC) | payer OTHER | END 2022-04-24 23:42 | disposition home or self-care (01) | LOC: WOUND 00:24 | DX: I87.313 Chronic venous hypertension (idiopathic) with ulcer of bilateral lower extremity (principal); L97.212 Non-pressure chronic ulcer of right calf with fat layer exposed; L97.222 Non-pressure chronic ulcer of left calf with fat layer exposed; I89.0 Lymphedema, not elsewhere classified | CPT/HCPCS: A9270 ==

== ENCOUNTER 2022-04-26 04:39 | Day surgery (SDC) | payer OTHER | END 2022-04-26 23:14 | disposition home or self-care (01) | LOC: WOUND 04:39 | DX: I87.313 Chronic venous hypertension (idiopathic) with ulcer of bilateral lower extremity (principal); L97.212 Non-pressure chronic ulcer of right calf with fat layer exposed; L97.222 Non-pressure chronic ulcer of left calf with fat layer exposed; I89.0 Lymphedema, not elsewhere classified; E78.5 Hyperlipidemia, unspecified | CPT/HCPCS: A9270; G0463 ==

== ENCOUNTER 2022-04-28 00:48 | Day surgery (SDC) | payer OTHER | END 2022-04-28 23:36 | disposition home or self-care (01) | LOC: WOUND 00:48 | DX: I87.313 Chronic venous hypertension (idiopathic) with ulcer of bilateral lower extremity (principal); L97.212 Non-pressure chronic ulcer of right calf with fat layer exposed; L97.222 Non-pressure chronic ulcer of left calf with fat layer exposed; I89.0 Lymphedema, not elsewhere classified ==

== ENCOUNTER 2022-05-01 08:00 | Day surgery (SDC) | payer OTHER | END 2022-05-01 23:59 | disposition home or self-care (01) | LOC: WOUND 08:00 | DX: I87.313 Chronic venous hypertension (idiopathic) with ulcer of bilateral lower extremity (principal); L97.212 Non-pressure chronic ulcer of right calf with fat layer exposed; L97.222 Non-pressure chronic ulcer of left calf with fat layer exposed; I89.0 Lymphedema, not elsewhere classified | CPT/HCPCS: G0463 ==

== ENCOUNTER 2022-05-03 01:18 | Day surgery (SDC) | payer OTHER | END 2022-05-03 22:48 | disposition home or self-care (01) | LOC: WOUND 01:18 | DX: I87.313 Chronic venous hypertension (idiopathic) with ulcer of bilateral lower extremity (principal); L97.212 Non-pressure chronic ulcer of right calf with fat layer exposed; L97.222 Non-pressure chronic ulcer of left calf with fat layer exposed; I89.0 Lymphedema, not elsewhere classified; E78.5 Hyperlipidemia, unspecified | CPT/HCPCS: A9270; G0463 ==

== ENCOUNTER 2022-05-05 01:50 | Day surgery (SDC) | payer OTHER | END 2022-05-05 23:02 | disposition home or self-care (01) | LOC: WOUND 01:50 | DX: I87.313 Chronic venous hypertension (idiopathic) with ulcer of bilateral lower extremity (principal); L97.212 Non-pressure chronic ulcer of right calf with fat layer exposed; L97.222 Non-pressure chronic ulcer of left calf with fat layer exposed; I89.0 Lymphedema, not elsewhere classified | CPT/HCPCS: A9270; G0463 ==

== ENCOUNTER → 2022-05-07 | Outpatient (CLI) | payer OTHER ==
[2022-05-07 12:25] LABS: BASOPHILS ABSOLUTE AUTO 0.04 K/mm3 (0.00-0.23); BASOPHILS PERCENT AUTO 1 % (0-2); EOSINOPHILS ABSOLUTE AUTO 0.16 K/mm3 (0.00-0.68); EOSINOPHILS PERCENT AUTO 3 % (0-6); Hematocrit 44.9 % (33.0-51.0); Hemoglobin 14.7 g/dL (11.5-16.0); IMMATURE GRAN ABSOLUTE AUTO 0.02 K/mm3 (0.00-0.10); IMMATURE GRAN PERCENT AUTO 0 % (0-1); LYMPHOCYTES PERCENT AUTO 16 % (21-46); MONOCYTES ABSOLUTE AUTO 0.51 K/mm3 (0.16-1.47); MONOCYTES PERCENT AUTO 10 % (4-13); Mean Corpuscular HGB 30.9 pg (26.0-34.0); Mean Corpuscular HGB Conc 32.7 g/dL (31.5-36.5); Mean Corpuscular Volume 94 fL (80-100); Mean Platelet Volume 11.6 fL (9.1-12.4); NEUTROPHILS ABSOLUTE AUTO 3.57 K/mm3 (1.96-9.15); NEUTROPHILS PERCENT AUTO 70 % (41-73); Platelet Count 283 K/mm3 (150-400); RDW Coefficient Variation 13.5 % (11.7-14.2); RDW Standard Deviation 46.5 fL (35.1-46.3); Red Blood Cell Count 4.76 M/mm3 (3.80-5.20)
[2022-05-07 12:34] LABS: Albumin, Blood 3.4 g/dL (3.4-5.0); Albumin/Globulin Ratio 0.8 (0.8-1.8); Bilirubin, Total 0.4 mg/dL (0.1-1.0); Bun/Creatinine Ratio 26.9 (12.0-20.0); Creatinine, Blood 0.78 mg/dL (0.40-1.00); Globulin, Blood 4.4 g/dL (2.2-4.0); Potassium, Blood 4.1 mmol/L (3.5-5.5); Total Protein, Blood 7.8 g/dL (6.4-8.2)
== END | disposition home or self-care (01) ==
LOC: LAB 12:20 → LAB SHORT 12:20
PROVIDERS: Physician Assistant
DX: I89.0 Lymphedema, not elsewhere classified (principal); L03.119 Cellulitis of unspecified part of limb
CPT/HCPCS: 80053; 85025; 87070; 87075; 87205

== ENCOUNTER 2022-05-08 02:49 | Day surgery (SDC) | payer OTHER | END 2022-05-08 23:18 | disposition home or self-care (01) | LOC: WOUND 02:49 | DX: I87.313 Chronic venous hypertension (idiopathic) with ulcer of bilateral lower extremity (principal); L97.212 Non-pressure chronic ulcer of right calf with fat layer exposed; L97.222 Non-pressure chronic ulcer of left calf with fat layer exposed; I89.0 Lymphedema, not elsewhere classified; E66.01 Morbid (severe) obesity due to excess calories; E78.5 Hyperlipidemia, unspecified; Z68.41 Body mass index [BMI] 40.0-44.9, adult | CPT/HCPCS: A9270; G0463 ==

== ENCOUNTER 2022-05-10 01:36 | Day surgery (SDC) | payer OTHER | END 2022-05-10 22:46 | disposition home or self-care (01) | LOC: WOUND 01:36 | DX: I87.313 Chronic venous hypertension (idiopathic) with ulcer of bilateral lower extremity (principal); L97.212 Non-pressure chronic ulcer of right calf with fat layer exposed; L97.222 Non-pressure chronic ulcer of left calf with fat layer exposed; I89.0 Lymphedema, not elsewhere classified; E66.01 Morbid (severe) obesity due to excess calories; E78.5 Hyperlipidemia, unspecified | CPT/HCPCS: G0463 ==

== ENCOUNTER 2022-05-12 09:51 | Day surgery (SDC) | payer OTHER | END 2022-05-12 23:10 | disposition home or self-care (01) | LOC: WOUND 09:51 | DX: L97.212 Non-pressure chronic ulcer of right calf with fat layer exposed (principal); L97.222 Non-pressure chronic ulcer of left calf with fat layer exposed; I89.0 Lymphedema, not elsewhere classified | CPT/HCPCS: G0463 ==

== ENCOUNTER 2022-05-16 09:05 | Day surgery (SDC) | payer OTHER | END 2022-05-16 23:00 | disposition home or self-care (01) | LOC: WOUND 09:05 | DX: L97.212 Non-pressure chronic ulcer of right calf with fat layer exposed (principal); L97.222 Non-pressure chronic ulcer of left calf with fat layer exposed; I89.0 Lymphedema, not elsewhere classified | CPT/HCPCS: G0463 ==

== ENCOUNTER 2022-05-19 01:05 | Day surgery (SDC) | payer OTHER | END 2022-05-19 23:08 | disposition home or self-care (01) | LOC: WOUND 01:05 | DX: L97.212 Non-pressure chronic ulcer of right calf with fat layer exposed (principal); L97.222 Non-pressure chronic ulcer of left calf with fat layer exposed; I89.0 Lymphedema, not elsewhere classified | CPT/HCPCS: G0463 ==

== ENCOUNTER → 2022-05-22 | Outpatient (CLI) | payer OTHER ==
[~2022-05-22] MED LIST changes: +BENZ100A PO; +CLINDAMYCI900 MG/52 IV; +SENNA LAXATIVE8.6 MG PO; +TRAM50 PO; +TRAZ50 PO; +Vancomycin HCl500 MG
== END | disposition home or self-care (01) ==
LOC: LAB SHORT 17:08 → LAB 17:08
DX: L03.90 Cellulitis, unspecified (principal)
CPT/HCPCS: 87070; 87205

== ENCOUNTER 2022-05-26 03:04 | Day surgery (SDC) | payer OTHER ==
[~2022-05-26 03:04] MED LIST changes: -BENZ100A PO; -CLINDAMYCI900 MG/52 IV; -SENNA LAXATIVE8.6 MG PO; -TRAM50 PO; -TRAZ50 PO; -Vancomycin HCl500 MG
== END 2022-05-26 23:10 | disposition home or self-care (01) ==
LOC: WOUND 03:04
DX: L97.212 Non-pressure chronic ulcer of right calf with fat layer exposed (principal); L97.222 Non-pressure chronic ulcer of left calf with fat layer exposed; I89.0 Lymphedema, not elsewhere classified
CPT/HCPCS: G0463

== ENCOUNTER 2022-06-16 02:21 | Day surgery (SDC) | payer OTHER | END 2022-06-16 23:13 | disposition home or self-care (01) | LOC: WOUND 02:21 | DX: I87.313 Chronic venous hypertension (idiopathic) with ulcer of bilateral lower extremity (principal); L97.222 Non-pressure chronic ulcer of left calf with fat layer exposed; L97.212 Non-pressure chronic ulcer of right calf with fat layer exposed; I89.0 Lymphedema, not elsewhere classified; E78.5 Hyperlipidemia, unspecified; E66.01 Morbid (severe) obesity due to excess calories; Z68.41 Body mass index [BMI] 40.0-44.9, adult | CPT/HCPCS: G0463 ==

== ENCOUNTER 2022-06-19 01:02 | Day surgery (SDC) | payer OTHER | END 2022-06-19 23:46 | disposition home or self-care (01) | LOC: WOUND 01:02 | DX: L97.222 Non-pressure chronic ulcer of left calf with fat layer exposed (principal); L97.212 Non-pressure chronic ulcer of right calf with fat layer exposed; I89.0 Lymphedema, not elsewhere classified ==

== ENCOUNTER 2022-06-21 02:00 | Day surgery (SDC) | payer OTHER | END 2022-06-21 23:05 | disposition home or self-care (01) | LOC: WOUND 02:00 | DX: L97.212 Non-pressure chronic ulcer of right calf with fat layer exposed (principal); L97.222 Non-pressure chronic ulcer of left calf with fat layer exposed; I89.0 Lymphedema, not elsewhere classified ==

== ENCOUNTER 2022-06-23 01:57 | Day surgery (SDC) | payer OTHER | END 2022-06-23 23:33 | disposition home or self-care (01) | LOC: WOUND 01:57 | DX: I89.0 Lymphedema, not elsewhere classified (principal); I87.313 Chronic venous hypertension (idiopathic) with ulcer of bilateral lower extremity; L97.212 Non-pressure chronic ulcer of right calf with fat layer exposed; L97.222 Non-pressure chronic ulcer of left calf with fat layer exposed; E78.5 Hyperlipidemia, unspecified ==

== ENCOUNTER 2022-06-26 03:31 | Day surgery (SDC) | payer OTHER | END 2022-06-26 22:59 | disposition home or self-care (01) | LOC: WOUND 03:31 | DX: I87.313 Chronic venous hypertension (idiopathic) with ulcer of bilateral lower extremity (principal); L97.212 Non-pressure chronic ulcer of right calf with fat layer exposed; L97.222 Non-pressure chronic ulcer of left calf with fat layer exposed; I89.0 Lymphedema, not elsewhere classified; E66.01 Morbid (severe) obesity due to excess calories; Z68.41 Body mass index [BMI] 40.0-44.9, adult | CPT/HCPCS: G0463 ==

== ENCOUNTER 2022-07-01 06:15 | Inpatient (IN) | payer OTHER ==
[~2022-07-01] VITALS: Ht 167.6 cm; Wt 123.2 kg
[2022-07-01 08:49] LABS: BASOPHILS ABSOLUTE AUTO 0.03 K/mm3 (0.00-0.23); BASOPHILS PERCENT AUTO 0 % (0-2); EOSINOPHILS PERCENT AUTO 1 % (0-6); Hematocrit 43.2 % (33.0-51.0); Hemoglobin 13.7 g/dL (11.5-16.0); IMMATURE GRAN ABSOLUTE AUTO 0.03 K/mm3 (0.00-0.10); IMMATURE GRAN PERCENT AUTO 0 % (0-1); LYMPHOCYTES PERCENT AUTO 4 % (21-46); MONOCYTES PERCENT AUTO 5 % (4-13); Mean Corpuscular HGB 31.1 pg (26.0-34.0); Mean Corpuscular HGB Conc 31.7 g/dL (31.5-36.5); Mean Corpuscular Volume 98 fL (80-100); Mean Platelet Volume 11.2 fL (9.1-12.4); NEUTROPHILS ABSOLUTE AUTO 8.61 K/mm3 (1.96-9.15); NEUTROPHILS PERCENT AUTO 89 % (41-73); Platelet Count 250 K/mm3 (150-400); RDW Coefficient Variation 14.5 % (11.7-14.2); RDW Standard Deviation 52.1 fL (35.1-46.3); White Blood Cell Count 9.67 K/mm3 (4.00-11.30)
[2022-07-01 09:13] LABS: Albumin, Blood 3.2 g/dL (3.4-5.0); Albumin/Globulin Ratio 0.8 (0.8-1.8); Bilirubin, Total 0.5 mg/dL (0.1-1.0); Bun/Creatinine Ratio 30.7 (12.0-20.0); Calcium, Blood 9.2 mg/dL (8.5-10.1); Creatinine, Blood 0.69 mg/dL (0.40-1.00); Globulin, Blood 4.1 g/dL (2.2-4.0); Potassium, Blood 4.3 mmol/L (3.5-5.5); Total Protein, Blood 7.3 g/dL (6.4-8.2)
[2022-07-01 09:53] LABS: Influenza A, PCR NEGATIVE (NEGATIVE); Influenza B, PCR NEGATIVE (NEGATIVE); Resp Syncytial Virus, PCR NEGATIVE (NEGATIVE); SARS-Cov-2 (COVID-19) PCR, MMC NEGATIVE (NEGATIVE)
--- NOTE | 2022-07-01 15:57 | NUR ---
PATIENT CONTINUES TO COMPLAIN OF COLDNESS, SOB WITH COUGH, ABD PAIN AND NAUSEA. REPORTED TO DR HERNDON MEDICATED WITH ULTRAM FOR PAIN, COMPAZINE FOR NAUSEA, AND NEBULIZER TREATMENTS STARTED AND RT ON THERE WAY. SATS ON RA 95%
[2022-07-02 05:22] LABS: Hematocrit 36.4 % (33.0-51.0); Hemoglobin 12.2 g/dL (11.5-16.0); Mean Corpuscular HGB 31.3 pg (26.0-34.0); Mean Corpuscular HGB Conc 33.5 g/dL (31.5-36.5); Platelet Count 245 K/mm3 (150-400); RDW Coefficient Variation 14.8 % (11.7-14.2); RDW Standard Deviation 50.4 fL (35.1-46.3)
[2022-07-02 05:30] LABS: Mean Corpuscular Volume 93 fL (80-100)
[2022-07-02 05:50] LABS: Bun/Creatinine Ratio 28.8 (12.0-20.0); Calcium, Blood 8.4 mg/dL (8.5-10.1); Creatinine, Blood 0.76 mg/dL (0.40-1.00); Potassium, Blood 4.1 mmol/L (3.5-5.5)
[2022-07-02 06:04] LABS: BAND PERCENT MAN 23 % (0-8); BASOPHILS PERCENT MAN 0 % (0-2); EOSINOPHILS PERCENT MAN 0 % (0-6); LYMPHOCYTES PERCENT MAN 1 % (21-46); MONOCYTES ABSOLUTE MAN 0.42 K/mm3 (0.16-1.47); MONOCYTES PERCENT MAN 4 % (4-13); NEUTROPHILS ABSOLUTE MAN 10.07 K/mm3 (1.96-9.15); SEG NEUTROPHILS PERCENT MAN 72 % (41-73); TOTAL CELLS COUNTED 100
--- NOTE | 2022-07-02 08:00 | NUR ---
SHIFT SUMMARY: PATIENT SPIKED A TEMP. OF 103.2 AND REPORTS A NON-PRO COUGH RAPHAEL FASHION CONSULTANT SALES WAS NOTIFIED AND AN ORDER FOR TESSELON PEARLS AND TYLENOL PRN WERE OBTAINED AND MEDS WERE GIVEN. RECHECK WAS 102.3. ICE PACKS WERE PLACED IN AXILA AREAS AND BEHIND THE NECK. THIS BRINGS TEMP. DOWN TO 98.8. BLE'S ARE WEEPING A FOWEL SMELLING DRAINAGE. PATIENT IS VERY THIRSTY AND DRANKS LOTS OF WATER. PERWICK OUT PUT IS 250 MLS, WITH SOME INC. X2.
--- NOTE | 2022-07-02 15:26 | NUR ---
1453 REPORTED PATIENTS CONCERN OF ABD PAIN/BLOATING, AND COUGHING, NEW ORDERS TO WRAP AZAR LOWER LEGS, ONE TIME DOSE OF LASIX, PERIWIK INPLACE. PATIENT VOMITED BRIGHT YELLOW BILE 50 ML, MEDICATED WITH COMPAZINE AND ULTRAM FOR PAIN, WCTM, CALL LIGHT WITH IN REACH
--- NOTE | 2022-07-02 19:12 | NUR ---
ALERT AND ORIENTED, RELUCTANT TO ANY INTERVENTIONS OR MEDICATIONS, CALL LIGHT WITH IN REACH, AMBULATES ONE PERSON STAND BY, AZAR WEEPING, ANTIBIOTICS CHANGES, WAITING FOR A IV PLACEMENT WITH ULTRASOUND, 3 UNSUCCESSFUL TRIES, PATIENT DESATS WHEN SLEEPING 2L O2 KEEPS SATS 92%. ACTIVE BT, PASSING GAS HAD A BM TODAY SMALL. WILL RELAY TO PM ADRI
--- NOTE | 2022-07-03 08:17 | NUR ---
SHIFT SUMMARY: PATIENT IS A&OX4, UP TO THE CHAIR AND BATHROM WITH SBA AND FWW. REQUESTING PERWICK WHILE LAYING IN BED DUE TO COUGH THAT IS PERSISTANT WHEN LYING IN BED. TESSELON PEARLS WERE GIVEN WITH POOR EFFECT. DR GARNICA WAS NOTIFIED AND ORDER FOR ROBITUSSIN WAS OBTAINED. MED WAS GIVEN WITH GOOD EFFECT. IV VANCO DID NOT COMPLETE THIS AM DUE TO INFILTRATE. SITE WAS REMOVED AND EXTREMITY ELEVATED WITH ICE PACK APPLED. BLE HAVE LARGE AMTS. OF DRAINAGE. LEGS WERE WRAPED WITH ABSORBENT PADS AND KERLIX X2.
[2022-07-03 17:31] LABS: Source, Urine Foley catheter
[2022-07-03 17:35] LABS: Appearance, Urine Hazy (Clear); Bilirubin, Urine Neg (Neg); Blood, Urine 5+ (Neg); Color, Urine Yellow (P-Yellow); Glucose Qualitative, Urine Neg (Neg); Ketones, Urine Neg (Neg); Leukocyte Esterase, Urine Neg (Neg); Nitrite, Urine Neg (Neg); Protein, Urine 3+ (Neg); Specific Gravity, Urine 1.015 (1.003-1.022); Urobilinogen, Urine NORM (Normal)
[2022-07-03 17:56] LABS: Bacteria Mod /hpf; Granular Casts 0-2 /lpf (0); Hyaline Casts 0-2 /lpf (0-2); Mucus Light (0-Heavy); Squamous Epithelial Cells Mod /hpf (Few)
--- NOTE | 2022-07-03 18:33 | NUR ---
SHIFT SUMMARY: PATIENT A&OX4. PLEASANT AND COOPERATIVE WITH CARE. AMBULATES TO BATHROOM WITH SBA AND DECLINE TO USE FWW. DR BERRIOS CONSULTED FOR ANASARCA. YODER PLACE AND UA SPECIMEN SENT TO LAB PER PROTOCOL. PATIENT PLACE ON FR 1000 MLS/DAY. PLUS 4 EDEMA BILAT LOWER EXTREMETIES AND AYAKA BOOTS DRESSING IN PLACE. PATIENT RECIEVED SCHEDULED ANTIBIOTIC. RECIEVED ONE DOSE OF PRN ROBITUSSIN FOR COUGH. VSS, DENIES SOB. REPORT MILD ABDOMINAL DISTENTION AND DENIES PAIN/TENDRENESS UPON MILD PALPATION. HYPOACTIVE BOWEL TONE. 24 HR URINE PROTIEN STARTED @ 1800. BED IS LOCKED, LOW POSITION AND CALL LIGHT IN REACH. WILL GIVE REPORT TO ONCOMING CHELSIE RUSH.
[2022-07-04 06:05] LABS: BASOPHILS ABSOLUTE AUTO 0.02 K/mm3 (0.00-0.23); BASOPHILS PERCENT AUTO 0 % (0-2); EOSINOPHILS ABSOLUTE AUTO 0.21 K/mm3 (0.00-0.68); EOSINOPHILS PERCENT AUTO 3 % (0-6); Hemoglobin 11.5 g/dL (11.5-16.0); IMMATURE GRAN ABSOLUTE AUTO 0.03 K/mm3 (0.00-0.10); IMMATURE GRAN PERCENT AUTO 0 % (0-1); LYMPHOCYTES ABSOLUTE AUTO 0.71 K/mm3 (0.84-5.20); LYMPHOCYTES PERCENT AUTO 9 % (21-46); MONOCYTES ABSOLUTE AUTO 0.49 K/mm3 (0.16-1.47); MONOCYTES PERCENT AUTO 6 % (4-13); Mean Corpuscular HGB 30.3 pg (26.0-34.0); Mean Corpuscular HGB Conc 32.9 g/dL (31.5-36.5); Mean Corpuscular Volume 92 fL (80-100); Mean Platelet Volume 10.9 fL (9.1-12.4); NEUTROPHILS ABSOLUTE AUTO 6.24 K/mm3 (1.96-9.15); NEUTROPHILS PERCENT AUTO 81 % (41-73); Platelet Count 222 K/mm3 (150-400); RDW Coefficient Variation 14.6 % (11.7-14.2); RDW Standard Deviation 49.5 fL (35.1-46.3); Red Blood Cell Count 3.79 M/mm3 (3.80-5.20)
[2022-07-04 06:25] LABS: Alanine Aminotransfer (ALT/SGP 25 U/L (12-78); Albumin, Blood 2.1 g/dL (3.4-5.0); Albumin/Globulin Ratio 0.6 (0.8-1.8); Alk Phos 93 U/L (50-136); Anion Gap 5 mmol/L (6-16); Aspartate Aminotrans (AST/SGOT 25 U/L (12-37); Bilirubin, Direct 0.1 mg/dL (0.0-0.3); Bilirubin, Indirect 0.2 mg/dL (0.1-0.7); Bilirubin, Total 0.3 mg/dL (0.1-1.0); Blood Urea Nitrogen 20 mg/dL (8-24); Bun/Creatinine Ratio 29.7 (12.0-20.0); CO2, Blood 29 mmol/L (21-32); Calcium, Blood 8.9 mg/dL (8.5-10.1); Chloride, Blood 107 mmol/L (98-108); Creatinine, Blood 0.67 mg/dL (0.40-1.00); Globulin, Blood 3.7 g/dL (2.2-4.0); Glomerular Filtration Rate 95 (60-); Glucose, Blood 109 mg/dL (70-99); Phosphorus, Blood 2.3 mg/dL (2.5-4.9); Potassium, Blood 3.2 mmol/L (3.5-5.5); Sodium, Blood 141 mmol/L (136-145); Total Protein, Blood 5.8 g/dL (6.4-8.2); Vancomycin, Trough 19.4 ug/mL (5.0-10.0)
--- NOTE | 2022-07-04 08:05 | NUR ---
Bob FROM DR FERREIRA TO PLACE YODER ON 07/03/22. ORDER NOT ENTERED INTO SYSTEM UNTIL 07/04/22.
--- NOTE | 2022-07-04 11:25 | NUR ---
CALLED DR. FERREIRA NOTIFIED PATIENT NOT TOLERATING POTASSIUM PHOS. RECIEVE NO ORDER AT THIS TIME.
--- NOTE | 2022-07-04 17:04 | NUR ---
SHIFT SUMMARY: PATIENT A&OX4. UP TO BATHROOM WITH SBA THROUGHOUT SHIFT. CONTINUE TO REPORT MILD ABDOMINAL DISTENTION BUT DENIES PAIN AND TENDERNESS UPON MILD PALPATION. CT ABDOMEN WITH CONTRAST WAS DONE AWAITING FOR RESULT. LEFT LOWER EXTREMITY SIGNIFICANT REDNESS COMPARED TO RIGHT LOWER EXTREMITY. OUTMARKING PLACE ON SKIN. EXUDRI PAD DRESSING CHANGED. UNNA BOOT NEW ORDER TO BE CHANGE TWICE A WEEK SUNDAY & SUNDAY. RECIEVED ONE DOSE OF ALBUMIN THIS AM. POWER GLIDE TO MARISSA WEBSTER, DRAWS WELL. YODER STILL IN PLACE FOR ACCURATE I&O's. 24 HR URINE PROTIEN SAMPLE SENT OUT TO LAB. CALL LIGHT IN REACH. MERCEDEZ GIVE REPORT TO STEVEN HOLGUIN RN.
[2022-07-04 18:33] LABS: Protein, Urine Quantitative 22.7 mg/dL (0.0-11.9)
[2022-07-05 05:53] LABS: BASOPHILS ABSOLUTE AUTO 0.05 K/mm3 (0.00-0.23); BASOPHILS PERCENT AUTO 1 % (0-2); EOSINOPHILS ABSOLUTE AUTO 0.13 K/mm3 (0.00-0.68); EOSINOPHILS PERCENT AUTO 2 % (0-6); Hematocrit 35.8 % (33.0-51.0); IMMATURE GRAN ABSOLUTE AUTO 0.05 K/mm3 (0.00-0.10); IMMATURE GRAN PERCENT AUTO 1 % (0-1); LYMPHOCYTES ABSOLUTE AUTO 0.97 K/mm3 (0.84-5.20); LYMPHOCYTES PERCENT AUTO 13 % (21-46); MONOCYTES ABSOLUTE AUTO 0.65 K/mm3 (0.16-1.47); MONOCYTES PERCENT AUTO 8 % (4-13); Mean Corpuscular HGB 30.4 pg (26.0-34.0); Mean Corpuscular HGB Conc 33.5 g/dL (31.5-36.5); Mean Corpuscular Volume 91 fL (80-100); NEUTROPHILS ABSOLUTE AUTO 5.89 K/mm3 (1.96-9.15); NEUTROPHILS PERCENT AUTO 76 % (41-73); RDW Coefficient Variation 14.5 % (11.7-14.2); RDW Standard Deviation 48.5 fL (35.1-46.3); Red Blood Cell Count 3.95 M/mm3 (3.80-5.20); White Blood Cell Count 7.74 K/mm3 (4.00-11.30)
[2022-07-05 05:58] LABS: Magnesium, Blood 1.9 mg/dL (1.6-2.4)
[2022-07-05 06:05] LABS: Alanine Aminotransfer (ALT/SGP 20 U/L (12-78); Albumin, Blood 2.4 g/dL (3.4-5.0); Albumin/Globulin Ratio 0.6 (0.8-1.8); Alk Phos 90 U/L (50-136); Anion Gap 8 mmol/L (6-16); Aspartate Aminotrans (AST/SGOT 19 U/L (12-37); Bilirubin, Total 0.3 mg/dL (0.1-1.0); Blood Urea Nitrogen 18 mg/dL (8-24); Bun/Creatinine Ratio 25.4 (12.0-20.0); CO2, Blood 29 mmol/L (21-32); Calcium, Blood 8.2 mg/dL (8.5-10.1); Chloride, Blood 104 mmol/L (98-108); Creatinine, Blood 0.71 mg/dL (0.40-1.00); Globulin, Blood 3.7 g/dL (2.2-4.0); Glomerular Filtration Rate 92 (60-); Glucose, Blood 119 mg/dL (70-99); Phosphorus, Blood 2.3 mg/dL (2.5-4.9); Potassium, Blood 2.8 mmol/L (3.5-5.5); Sodium, Blood 141 mmol/L (136-145); Total Protein, Blood 6.1 g/dL (6.4-8.2); Vancomycin, Trough 25.3 ug/mL (5.0-10.0)
[2022-07-05 06:19] LABS: Mean Platelet Volume 11.6 fL (9.1-12.4)
--- NOTE | 2022-07-05 18:00 | NUR ---
SHIFT SUMMARY: PATIENT A&OX4. AMBULATES TO BATHROOM INDEPENDENTLY AND USE CALL LIGHT APPROPRIATELY. DC'D BEBA TODAY. LLE APPEARS TO BE MORE REDNESS THAT EXTEND TO HER MID LATERAL THIGH, PLUS 4 EDEMA WITH MODERATE DRAINAIGE. RLE APPEARS TO BE GETTING BETTER ABOUT PLUS 3 EDEMA WITH LESS REDNESS AND MILD DRAINAIGE. UNNA BOOTS TO BILAT LE STILL INTACT. BILAT LE EXUDRI ABSORBENT PAD CHANGED. PATIENT STILL REPORT OF MILD ABDOMINAL DISTENTION, BUT CONTINUE DENIES PAIN/DISCOMFORT. NO N/V, SOB. TOLERATING PO WELL. PATIENT ON TELE DUE TO K OF 2.8 THIS AM. SR IN 70'S PER [employer]. LUNGS CLEAR THROUGHOUT AND CONTINUES TO HAVE NONPRODUCTIVE COUGH. OFFER PRN ROBITUSSIN, BUT PATIENT DECLINE. STILL ON FR [id number] MLS/DAY. CALL LIGHT IN REACH. WILL GIVE REPORT TO ONCOMING CHELSIE RUSH.
--- NOTE | 2022-07-06 04:42 | NUR ---
A&Ox4. UP AND DOWN A LOT T/O SHIFT WITH C/O COUGH. RT RECOMMENDED CHAMOMILE TEA D/T TACHYCARDIC EFFECTS OF ALBUTEROL. TEA AND GIVEN ROBITUSSIN WITH LITTLE RELIEF; RT TO ROOM TO ADMINISTER ALBUTEROL. TELE SINUS W/BBB @77bpm. AMBULATING INDEPENDENTLY TO BATHROOM. NO BM THIS SHIFT. CONTINUES WITH FLUID RESTRICTION. C/O PAIN AT PIV SITE ARMAND AFTER ABx ADMINISTRATION @ 0230 THOUGH FLUSHED FINE PRIOR TO ABT. NO CHANGE IN AMOUNT OF EDEMA IN BLEs; REDNESS HAS NOT PROTRUTED BEYOND LINE DRAWN BY PREVIOUS SHIFT RN.
[2022-07-06 05:46] LABS: Hemoglobin 12.1 g/dL (11.5-16.0); Mean Corpuscular HGB 30.6 pg (26.0-34.0); Mean Corpuscular HGB Conc 32.7 g/dL (31.5-36.5); Mean Corpuscular Volume 93 fL (80-100); Mean Platelet Volume 10.7 fL (9.1-12.4); Platelet Count 255 K/mm3 (150-400); RDW Coefficient Variation 14.7 % (11.7-14.2); Red Blood Cell Count 3.96 M/mm3 (3.80-5.20); White Blood Cell Count 10.05 K/mm3 (4.00-11.30)
[2022-07-06 06:08] LABS: Albumin, Blood 2.5 g/dL (3.4-5.0); Anion Gap 8 mmol/L (6-16); Blood Urea Nitrogen 19 mg/dL (8-24); Bun/Creatinine Ratio 26.4 (12.0-20.0); CO2, Blood 29 mmol/L (21-32); Calcium, Blood 8.8 mg/dL (8.5-10.1); Chloride, Blood 103 mmol/L (98-108); Creatinine, Blood 0.72 mg/dL (0.40-1.00); Glomerular Filtration Rate 90 (60-); Glucose, Blood 104 mg/dL (70-99); Potassium, Blood 3.1 mmol/L (3.5-5.5); Sodium, Blood 140 mmol/L (136-145)
[2022-07-06 06:35] LABS: BAND PERCENT MAN 1 % (0-8); BASOPHILS PERCENT MAN 0 % (0-2); EOSINOPHILS PERCENT MAN 4 % (0-6); LYMPHOCYTES % ATYPICAL MANUAL 1 % (0-0); LYMPHOCYTES PERCENT MAN 16 % (21-46); MONOCYTES PERCENT MAN 8 % (4-13); NEUTROPHILS ABSOLUTE MAN 7.13 K/mm3 (1.96-9.15); SEG NEUTROPHILS PERCENT MAN 70 % (41-73); TOTAL CELLS COUNTED 100
[2022-07-06 17:06] LABS: Influenza A, PCR NEGATIVE (NEGATIVE); Influenza B, PCR NEGATIVE (NEGATIVE); Resp Syncytial Virus, PCR NEGATIVE (NEGATIVE); SARS-Cov-2 (COVID-19) PCR, MMC NEGATIVE (NEGATIVE)
--- NOTE | 2022-07-06 17:33 | NUR ---
PATIENT IN GOOD SPIRITS. PLAN TO DISCHARGE TO [facility] TOMORROW. COVID WAS NEGATIVE. ABX CLEOCIN AND VANCO STILL PRESCRIBED. UNIBOOT APPLIED THIS SHIFT. SKIN RED, WEEPING, SOME BLISTERING APPEARANCE UNDER THE BOOT. PATIENT SHOWERED AND IS USING THE CARDBOARD FROM [employer] CURLERS IN HER HAIR. APPETITE NORMAL, AND THE PATIENT HAS MINOR PAIN- BILATERAL LEGS WHEN TOUCHED AND LEFT KNEE INTERMITTENTLY. NO OTHER CONCERS. *TELEMETRY WAS DISCONTINUED THIS AFTERNOON.
--- NOTE | 2022-07-07 04:56 | NUR ---
A&Ox4. CONTINUES TO C/O CONSTIPATION; NO BM WITH PRN MIRALAX. REC'D BREATHING Tx FROM RT WITHOUT MUCH RELIEF FOR COUGH. ADMINISTERED PRN BENZONATE FOR COUGH AND PRN NORCO FOR PAIN. PT SLEPT MAJORITY OF THE NIGHT AFTER THAT WITH THE EXCEPTION OF AMBULATING TO BATHROOM. POWERGLIDE MARISSA PATENT AND FLUSHING BUT DOES NOT DRAW. ANTICIPATE DC TO SNF.
[2022-07-07 05:14] LABS: Hematocrit 35.9 % (33.0-51.0); Hemoglobin 11.6 g/dL (11.5-16.0)
[2022-07-07 05:35] LABS: Albumin, Blood 2.3 g/dL (3.4-5.0); Anion Gap 7 mmol/L (6-16); Blood Urea Nitrogen 26 mg/dL (8-24); Bun/Creatinine Ratio 38.3 (12.0-20.0); CO2, Blood 29 mmol/L (21-32); Calcium, Blood 8.7 mg/dL (8.5-10.1); Chloride, Blood 104 mmol/L (98-108); Creatinine, Blood 0.68 mg/dL (0.40-1.00); Glomerular Filtration Rate 94 (60-); Glucose, Blood 100 mg/dL (70-99); Magnesium, Blood 2.1 mg/dL (1.6-2.4); Phosphorus, Blood 3.7 mg/dL (2.5-4.9); Potassium, Blood 3.4 mmol/L (3.5-5.5); Sodium, Blood 140 mmol/L (136-145)
[2022-07-07] MEDS ORDERED: BENZ100A PO (11:21)
[2022-07-07] MEDS ORDERED: CLINDAMYCI900 MG/52 IV (11:24)
[2022-07-07] MEDS ORDERED: POTCHL20ER PO (11:24)
[2022-07-07] MEDS ORDERED: TRAM50 PO (11:25)
[2022-07-07] MEDS ORDERED: SENNA LAXATIVE8.6 MG PO (11:25)
[2022-07-07] MEDS ORDERED: TRAZ50 PO (11:26)
[2022-07-07] MEDS ORDERED: VISBIOME 112.51 EACH PO (11:28)
[2022-07-07] MEDS ORDERED: Vancomycin HCl500 MG (11:31)
--- NOTE | 2022-07-07 11:43 | NUR ---
PT REPORT PROVIDED TO [facility]. AWAITING TRANSPORT NOW
== END 2022-07-07 11:56 | DRG 872 ==
LOC: ER 06:15 → MEDS 12:19
PROVIDERS: Emergency Medicine; Hospitalist; Internal Medicine; Internal Medicine Nephrology; ADMIT Internal Medicine
DX: A41.9 Sepsis, unspecified organism (principal); L03.116 Cellulitis of left lower limb; N25.81 Secondary hyperparathyroidism of renal origin; N17.9 Acute kidney failure, unspecified; Z68.42 Body mass index [BMI] 45.0-49.9, adult; J90 Pleural effusion, not elsewhere classified; J98.11 Atelectasis; R14.0 Abdominal distension (gaseous); Z66 Do not resuscitate; Z20.822 Contact with and (suspected) exposure to COVID-19; N18.9 Chronic kidney disease, unspecified; E87.70 Fluid overload, unspecified; D63.1 Anemia in chronic kidney disease; I95.9 Hypotension, unspecified; E88.09 Other disorders of plasma-protein metabolism, not elsewhere classified; R80.8 Other proteinuria; I73.9 Peripheral vascular disease, unspecified; E03.9 Hypothyroidism, unspecified; I87.2 Venous insufficiency (chronic) (peripheral); E66.01 Morbid (severe) obesity due to excess calories; I89.0 Lymphedema, not elsewhere classified; K44.9 Diaphragmatic hernia without obstruction or gangrene; Z90.49 Acquired absence of other specified parts of digestive tract; Z86.14 Personal history of Methicillin resistant Staphylococcus aureus infection; Z98.890 Other specified postprocedural states; Z88.5 Allergy status to narcotic agent; Z90.710 Acquired absence of both cervix and uterus; Z79.899 Other long term (current) drug therapy; Z79.891 Long term (current) use of opiate analgesic; Z79.2 Long term (current) use of antibiotics
CPT/HCPCS: 0241U; 36415; 71045; 74177; 80048; 80053; 80069; 80202; 81001; 82040; 82248; 83605; 83735; 83880; 84100; 84156; 84439; 84443; 84484; 85014; 85018; 85025; 87040; 87086; 93005; 93010; 94640; 94664; 94760; 94762; 96374; 99285-25; A9270; J0690; J0696; J0780; J1650; J1940; J3370; J7030; J7050; J7060; P9047; Q9967

== ENCOUNTER 2022-07-13 19:23 | Emergency (ER) | payer OTHER ==
[~2022-07-13] VITALS: Ht 167.6 cm; Wt 113.4 kg
[~2022-07-13 19:23] MED LIST changes: +BENZ100A PO; +CLINDAMYCI900 MG/52 IV; +SENNA LAXATIVE8.6 MG PO; +TRAM50 PO; +TRAZ50 PO; +Vancomycin HCl500 MG
--- NOTE | 2022-07-13 23:26 | NUR ---
I WAS CALLED TO ER TO PLACE A POWERGLIDE IN A PT WHO'S PREVIOUS POWERGLIDE WAS LEAKING. PREVIOUS POWERGLIDE IN MARISSA; UNABLE TO DRAW FROM AND SITE IS SWOLLEN. HOSE WRAPPER D/C'D MARISSA POWERGLIDE. I PLACED A 20G 10CM POWERGLIDE PRO TO ARMAND; DRAWS AND FLUSHES GREAT.
== END 2022-07-14 00:26 | disposition home or self-care (01) ==
LOC: ER 19:23
DX: T82.534A Leakage of infusion catheter, initial encounter (principal); L03.119 Cellulitis of unspecified part of limb; E03.9 Hypothyroidism, unspecified; Z79.899 Other long term (current) drug therapy; Z88.5 Allergy status to narcotic agent; Z91.09 Other allergy status, other than to drugs and biological substances; Y92.9 Unspecified place or not applicable
CPT/HCPCS: 99283-25; C1751

== ENCOUNTER → 2022-09-07 | Outpatient (CLI) | payer OTHER | END | disposition home or self-care (01) | LOC: LAB SHORT 19:00 → LAB 19:00 | DX: L03.116 Cellulitis of left lower limb (principal) | CPT/HCPCS: 87070; 87205 ==

== ENCOUNTER → 2022-09-24 | Outpatient (CLI) | payer OTHER | LOC: LAB 14:24 → LAB SHORT 14:24 | DX: L03.119 Cellulitis of unspecified part of limb (principal) | CPT/HCPCS: 87070; 87205 ==

== ENCOUNTER 2022-12-14 03:49 | Day surgery (SDC) | payer OTHER | END 2022-12-14 23:32 | disposition home or self-care (01) | LOC: WOUND 03:49 | DX: I87.313 Chronic venous hypertension (idiopathic) with ulcer of bilateral lower extremity (principal); L97.222 Non-pressure chronic ulcer of left calf with fat layer exposed; L97.212 Non-pressure chronic ulcer of right calf with fat layer exposed; I89.0 Lymphedema, not elsewhere classified | CPT/HCPCS: G0463 ==

== ENCOUNTER 2022-12-20 10:03 | Emergency (ER) | payer OTHER ==
[~2022-12-20] VITALS: Ht 167.6 cm; Wt 113.4 kg
[2022-12-20 11:32] LABS: BASOPHILS ABSOLUTE AUTO 0.04 K/mm3 (0.00-0.23); BASOPHILS PERCENT AUTO 1 % (0-2); EOSINOPHILS ABSOLUTE AUTO 0.12 K/mm3 (0.00-0.68); EOSINOPHILS PERCENT AUTO 2 % (0-6); Hematocrit 42.7 % (33.0-51.0); IMMATURE GRAN PERCENT AUTO 0 % (0-1); LYMPHOCYTES ABSOLUTE AUTO 1.05 K/mm3 (0.84-5.20); LYMPHOCYTES PERCENT AUTO 19 % (21-46); MONOCYTES ABSOLUTE AUTO 0.46 K/mm3 (0.16-1.47); MONOCYTES PERCENT AUTO 9 % (4-13); Mean Corpuscular HGB 30.4 pg (26.0-34.0); Mean Corpuscular HGB Conc 32.8 g/dL (31.5-36.5); Mean Corpuscular Volume 93 fL (80-100); Mean Platelet Volume 10.6 fL (9.1-12.4); NEUTROPHILS ABSOLUTE AUTO 3.74 K/mm3 (1.96-9.15); NEUTROPHILS PERCENT AUTO 69 % (41-73); Platelet Count 301 K/mm3 (150-400); RDW Coefficient Variation 14.1 % (11.7-14.2); RDW Standard Deviation 47.9 fL (35.1-46.3); Red Blood Cell Count 4.61 M/mm3 (3.80-5.20); White Blood Cell Count 5.41 K/mm3 (4.00-11.30)
[2022-12-20 11:40] LABS: Albumin/Globulin Ratio 0.6 (0.8-1.8); Bilirubin, Total 0.7 mg/dL (0.1-1.0); Bun/Creatinine Ratio 40.7 (12.0-20.0); Calcium, Blood 9.3 mg/dL (8.5-10.1); Creatinine, Blood 0.62 mg/dL (0.40-1.00); Globulin, Blood 4.7 g/dL (2.2-4.0); Potassium, Blood 3.7 mmol/L (3.5-5.5); Total Protein, Blood 7.7 g/dL (6.4-8.2)
[2022-12-20] MEDS ORDERED: CEPH500 PO (15:50)
== END 2022-12-20 16:26 | disposition home or self-care (01) ==
LOC: ER 10:03
PROVIDERS: Student in an Organized Health Care Education/Training Program
DX: I89.0 Lymphedema, not elsewhere classified (principal); L03.116 Cellulitis of left lower limb; L03.115 Cellulitis of right lower limb; E03.9 Hypothyroidism, unspecified; Z88.5 Allergy status to narcotic agent; Z91.048 Other nonmedicinal substance allergy status; Z79.899 Other long term (current) drug therapy
CPT/HCPCS: 36415; 80053; 83880; 84484; 85025; 85651; 86140; J1940

== ENCOUNTER 2022-12-21 02:29 | Day surgery (SDC) | payer OTHER | END 2022-12-21 22:55 | disposition home or self-care (01) | LOC: WOUND 02:29 | DX: I89.0 Lymphedema, not elsewhere classified (principal); I87.313 Chronic venous hypertension (idiopathic) with ulcer of bilateral lower extremity; L97.222 Non-pressure chronic ulcer of left calf with fat layer exposed; L97.212 Non-pressure chronic ulcer of right calf with fat layer exposed | CPT/HCPCS: A9270 ==

== ENCOUNTER 2022-12-28 03:33 | Day surgery (SDC) | payer OTHER | END 2022-12-28 22:41 | disposition home or self-care (01) | LOC: WOUND 03:33 | DX: I89.0 Lymphedema, not elsewhere classified (principal); I87.313 Chronic venous hypertension (idiopathic) with ulcer of bilateral lower extremity; L97.212 Non-pressure chronic ulcer of right calf with fat layer exposed; L97.222 Non-pressure chronic ulcer of left calf with fat layer exposed | CPT/HCPCS: A9270 ==

== ENCOUNTER 2023-01-05 01:38 | Day surgery (SDC) | payer OTHER | END 2023-01-05 23:10 | disposition home or self-care (01) | LOC: WOUND 01:38 | DX: I87.313 Chronic venous hypertension (idiopathic) with ulcer of bilateral lower extremity (principal); L97.222 Non-pressure chronic ulcer of left calf with fat layer exposed; L97.212 Non-pressure chronic ulcer of right calf with fat layer exposed; I89.0 Lymphedema, not elsewhere classified ==

== ENCOUNTER 2023-01-23 01:01 | Day surgery (SDC) | payer OTHER | END 2023-01-23 22:44 | disposition home or self-care (01) | LOC: WOUND 01:01 | DX: I89.0 Lymphedema, not elsewhere classified (principal); L97.222 Non-pressure chronic ulcer of left calf with fat layer exposed; L97.212 Non-pressure chronic ulcer of right calf with fat layer exposed; I87.313 Chronic venous hypertension (idiopathic) with ulcer of bilateral lower extremity | CPT/HCPCS: A9270 ==

== ENCOUNTER 2023-01-26 01:55 | Day surgery (SDC) | payer OTHER | END 2023-01-26 23:06 | disposition home or self-care (01) | LOC: WOUND 01:55 | DX: I87.313 Chronic venous hypertension (idiopathic) with ulcer of bilateral lower extremity (principal); I89.0 Lymphedema, not elsewhere classified; L97.222 Non-pressure chronic ulcer of left calf with fat layer exposed; L97.212 Non-pressure chronic ulcer of right calf with fat layer exposed ==

== ENCOUNTER 2023-01-30 01:40 | Day surgery (SDC) | payer OTHER | END 2023-01-30 22:47 | disposition home or self-care (01) | LOC: WOUND 01:40 | DX: I89.0 Lymphedema, not elsewhere classified (principal); I87.313 Chronic venous hypertension (idiopathic) with ulcer of bilateral lower extremity; L97.222 Non-pressure chronic ulcer of left calf with fat layer exposed; L97.212 Non-pressure chronic ulcer of right calf with fat layer exposed ==

== ENCOUNTER 2023-02-02 02:20 | Day surgery (SDC) | payer OTHER | END 2023-02-02 22:56 | disposition home or self-care (01) | LOC: WOUND 02:20 | DX: I89.0 Lymphedema, not elsewhere classified (principal); L97.222 Non-pressure chronic ulcer of left calf with fat layer exposed; L97.212 Non-pressure chronic ulcer of right calf with fat layer exposed; I87.313 Chronic venous hypertension (idiopathic) with ulcer of bilateral lower extremity | CPT/HCPCS: A9270 ==

== ENCOUNTER 2023-02-06 01:42 | Day surgery (SDC) | payer OTHER | END 2023-02-06 22:36 | disposition home or self-care (01) | LOC: WOUND 01:42 | DX: I89.0 Lymphedema, not elsewhere classified (principal); L97.222 Non-pressure chronic ulcer of left calf with fat layer exposed; L97.212 Non-pressure chronic ulcer of right calf with fat layer exposed; I87.313 Chronic venous hypertension (idiopathic) with ulcer of bilateral lower extremity ==

== ENCOUNTER 2023-02-09 01:38 | Day surgery (SDC) | payer OTHER | END 2023-02-09 22:55 | disposition home or self-care (01) | LOC: WOUND 01:38 | DX: I89.0 Lymphedema, not elsewhere classified (principal); L97.222 Non-pressure chronic ulcer of left calf with fat layer exposed; L97.212 Non-pressure chronic ulcer of right calf with fat layer exposed; I87.313 Chronic venous hypertension (idiopathic) with ulcer of bilateral lower extremity | CPT/HCPCS: A9270 ==

== ENCOUNTER 2023-02-12 00:17 | Day surgery (SDC) | payer OTHER | END 2023-02-12 22:50 | disposition home or self-care (01) | LOC: WOUND 00:17 | DX: I87.313 Chronic venous hypertension (idiopathic) with ulcer of bilateral lower extremity (principal); L97.222 Non-pressure chronic ulcer of left calf with fat layer exposed; L97.212 Non-pressure chronic ulcer of right calf with fat layer exposed; I89.0 Lymphedema, not elsewhere classified ==

== ENCOUNTER 2023-02-16 02:11 | Day surgery (SDC) | payer OTHER | END 2023-02-16 22:47 | disposition home or self-care (01) | LOC: WOUND 02:11 | DX: I89.0 Lymphedema, not elsewhere classified (principal); L97.222 Non-pressure chronic ulcer of left calf with fat layer exposed; L97.212 Non-pressure chronic ulcer of right calf with fat layer exposed; I87.313 Chronic venous hypertension (idiopathic) with ulcer of bilateral lower extremity ==

== ENCOUNTER 2023-02-19 00:48 | Day surgery (SDC) | payer OTHER | END 2023-02-19 22:56 | disposition home or self-care (01) | LOC: WOUND 00:48 | DX: I87.313 Chronic venous hypertension (idiopathic) with ulcer of bilateral lower extremity (principal); I89.0 Lymphedema, not elsewhere classified; L97.212 Non-pressure chronic ulcer of right calf with fat layer exposed; L97.222 Non-pressure chronic ulcer of left calf with fat layer exposed ==

== ENCOUNTER 2023-02-21 02:19 | Day surgery (SDC) | payer OTHER | END 2023-02-21 22:49 | disposition home or self-care (01) | LOC: WOUND 02:19 | DX: I87.313 Chronic venous hypertension (idiopathic) with ulcer of bilateral lower extremity (principal); L97.222 Non-pressure chronic ulcer of left calf with fat layer exposed; L97.212 Non-pressure chronic ulcer of right calf with fat layer exposed; I89.0 Lymphedema, not elsewhere classified ==

== ENCOUNTER 2023-02-23 00:18 | Day surgery (SDC) | payer OTHER | END 2023-02-23 22:59 | disposition home or self-care (01) | LOC: WOUND 00:18 | DX: I87.313 Chronic venous hypertension (idiopathic) with ulcer of bilateral lower extremity (principal); L97.212 Non-pressure chronic ulcer of right calf with fat layer exposed; L97.222 Non-pressure chronic ulcer of left calf with fat layer exposed; I89.0 Lymphedema, not elsewhere classified ==

== ENCOUNTER 2023-02-26 00:23 | Day surgery (SDC) | payer OTHER | END 2023-02-26 22:38 | disposition home or self-care (01) | LOC: WOUND 00:23 | DX: I87.313 Chronic venous hypertension (idiopathic) with ulcer of bilateral lower extremity (principal); L97.222 Non-pressure chronic ulcer of left calf with fat layer exposed; L97.212 Non-pressure chronic ulcer of right calf with fat layer exposed; I89.0 Lymphedema, not elsewhere classified ==

== ENCOUNTER 2023-02-28 01:11 | Day surgery (SDC) | payer OTHER | END 2023-02-28 23:02 | disposition home or self-care (01) | LOC: WOUND 01:11 | DX: I87.313 Chronic venous hypertension (idiopathic) with ulcer of bilateral lower extremity (principal); L97.212 Non-pressure chronic ulcer of right calf with fat layer exposed; L97.222 Non-pressure chronic ulcer of left calf with fat layer exposed; I89.0 Lymphedema, not elsewhere classified ==

== ENCOUNTER 2023-03-02 00:39 | Day surgery (SDC) | payer OTHER | END 2023-03-02 22:55 | disposition home or self-care (01) | LOC: WOUND 00:39 | DX: I87.313 Chronic venous hypertension (idiopathic) with ulcer of bilateral lower extremity (principal); L97.222 Non-pressure chronic ulcer of left calf with fat layer exposed; L97.212 Non-pressure chronic ulcer of right calf with fat layer exposed; I89.0 Lymphedema, not elsewhere classified; E66.01 Morbid (severe) obesity due to excess calories; E78.5 Hyperlipidemia, unspecified ==

== ENCOUNTER 2023-03-05 00:09 | Day surgery (SDC) | payer OTHER | END 2023-03-05 22:57 | disposition home or self-care (01) | LOC: WOUND 00:09 | DX: I87.313 Chronic venous hypertension (idiopathic) with ulcer of bilateral lower extremity (principal); L97.222 Non-pressure chronic ulcer of left calf with fat layer exposed; L97.212 Non-pressure chronic ulcer of right calf with fat layer exposed; I89.0 Lymphedema, not elsewhere classified | CPT/HCPCS: A9270 ==

== ENCOUNTER 2023-03-07 02:31 | Day surgery (SDC) | payer OTHER | END 2023-03-07 23:30 | disposition home or self-care (01) | LOC: WOUND 02:31 | DX: I87.313 Chronic venous hypertension (idiopathic) with ulcer of bilateral lower extremity (principal); L97.222 Non-pressure chronic ulcer of left calf with fat layer exposed; L97.212 Non-pressure chronic ulcer of right calf with fat layer exposed; I89.0 Lymphedema, not elsewhere classified ==

== ENCOUNTER 2023-03-09 03:26 | Day surgery (SDC) | payer OTHER | END 2023-03-09 22:39 | disposition home or self-care (01) | LOC: WOUND 03:26 | DX: I87.313 Chronic venous hypertension (idiopathic) with ulcer of bilateral lower extremity (principal); L97.222 Non-pressure chronic ulcer of left calf with fat layer exposed; L97.212 Non-pressure chronic ulcer of right calf with fat layer exposed; I89.0 Lymphedema, not elsewhere classified; E66.01 Morbid (severe) obesity due to excess calories; E78.5 Hyperlipidemia, unspecified ==

== ENCOUNTER 2023-03-13 00:26 | Day surgery (SDC) | payer OTHER | END 2023-03-13 22:43 | disposition home or self-care (01) | LOC: WOUND 00:26 | DX: I87.313 Chronic venous hypertension (idiopathic) with ulcer of bilateral lower extremity (principal); L97.222 Non-pressure chronic ulcer of left calf with fat layer exposed; L97.212 Non-pressure chronic ulcer of right calf with fat layer exposed; I89.0 Lymphedema, not elsewhere classified ==

== ENCOUNTER 2023-03-16 02:06 | Day surgery (SDC) | payer OTHER | END 2023-03-16 22:58 | disposition home or self-care (01) | LOC: WOUND 02:06 | DX: I89.0 Lymphedema, not elsewhere classified (principal); I87.313 Chronic venous hypertension (idiopathic) with ulcer of bilateral lower extremity; L97.222 Non-pressure chronic ulcer of left calf with fat layer exposed; L97.212 Non-pressure chronic ulcer of right calf with fat layer exposed ==

== ENCOUNTER 2023-03-19 09:17 | Day surgery (SDC) | payer OTHER | END 2023-03-19 22:51 | disposition home or self-care (01) | LOC: WOUND 09:17 | DX: I89.0 Lymphedema, not elsewhere classified (principal); I87.313 Chronic venous hypertension (idiopathic) with ulcer of bilateral lower extremity; L97.222 Non-pressure chronic ulcer of left calf with fat layer exposed; L97.212 Non-pressure chronic ulcer of right calf with fat layer exposed; E66.01 Morbid (severe) obesity due to excess calories; E78.5 Hyperlipidemia, unspecified ==

== ENCOUNTER 2023-03-23 00:44 | Day surgery (SDC) | payer OTHER | END 2023-03-24 22:41 | disposition home or self-care (01) | LOC: WOUND 00:44 | DX: I87.313 Chronic venous hypertension (idiopathic) with ulcer of bilateral lower extremity (principal); L97.222 Non-pressure chronic ulcer of left calf with fat layer exposed; L97.212 Non-pressure chronic ulcer of right calf with fat layer exposed; I89.0 Lymphedema, not elsewhere classified ==

== ENCOUNTER 2023-03-26 01:37 | Day surgery (SDC) | payer OTHER | END 2023-03-26 22:52 | disposition home or self-care (01) | LOC: WOUND 01:37 | DX: I89.0 Lymphedema, not elsewhere classified (principal); I87.313 Chronic venous hypertension (idiopathic) with ulcer of bilateral lower extremity; L97.222 Non-pressure chronic ulcer of left calf with fat layer exposed; L97.212 Non-pressure chronic ulcer of right calf with fat layer exposed | CPT/HCPCS: A9270 ==

== ENCOUNTER 2023-03-29 03:48 | Day surgery (SDC) | payer OTHER | END 2023-03-29 22:41 | disposition home or self-care (01) | LOC: WOUND 03:48 | DX: I89.0 Lymphedema, not elsewhere classified (principal); I87.313 Chronic venous hypertension (idiopathic) with ulcer of bilateral lower extremity; L97.222 Non-pressure chronic ulcer of left calf with fat layer exposed; L97.212 Non-pressure chronic ulcer of right calf with fat layer exposed ==

== ENCOUNTER 2023-04-02 01:21 | Day surgery (SDC) | payer OTHER | END 2023-04-02 22:55 | disposition home or self-care (01) | LOC: WOUND 01:21 | DX: I87.313 Chronic venous hypertension (idiopathic) with ulcer of bilateral lower extremity (principal); I89.0 Lymphedema, not elsewhere classified; L97.222 Non-pressure chronic ulcer of left calf with fat layer exposed; L97.212 Non-pressure chronic ulcer of right calf with fat layer exposed | CPT/HCPCS: A9270 ==

== ENCOUNTER 2023-04-04 00:37 | Day surgery (SDC) | payer OTHER | END 2023-04-04 22:44 | disposition home or self-care (01) | LOC: WOUND 00:37 | DX: I87.313 Chronic venous hypertension (idiopathic) with ulcer of bilateral lower extremity (principal); L97.222 Non-pressure chronic ulcer of left calf with fat layer exposed; L97.212 Non-pressure chronic ulcer of right calf with fat layer exposed; I89.0 Lymphedema, not elsewhere classified ==

== ENCOUNTER 2023-07-26 18:26 | Emergency (ER) | payer OTHER ==
[~2023-07-26] VITALS: Ht 167.6 cm; Wt 117.9 kg
[2023-07-26 22:54] LABS: BASOPHILS ABSOLUTE AUTO 0.04 K/mm3 (0.00-0.23); BASOPHILS PERCENT AUTO 1 % (0-2); EOSINOPHILS ABSOLUTE AUTO 0.12 K/mm3 (0.00-0.68); EOSINOPHILS PERCENT AUTO 2 % (0-6); Hemoglobin 13.8 g/dL (11.5-16.0); IMMATURE GRAN ABSOLUTE AUTO 0.02 K/mm3 (0.00-0.10); IMMATURE GRAN PERCENT AUTO 0 % (0-1); LYMPHOCYTES ABSOLUTE AUTO 1.14 K/mm3 (0.84-5.20); LYMPHOCYTES PERCENT AUTO 16 % (21-46); MONOCYTES PERCENT AUTO 8 % (4-13); Mean Corpuscular HGB 31.4 pg (26.0-34.0); Mean Corpuscular HGB Conc 32.9 g/dL (31.5-36.5); Mean Corpuscular Volume 96 fL (80-100); Mean Platelet Volume 12.5 fL (9.1-12.4); NEUTROPHILS ABSOLUTE AUTO 5.22 K/mm3 (1.96-9.15); NEUTROPHILS PERCENT AUTO 73 % (41-73); Platelet Count 267 K/mm3 (150-400); RDW Standard Deviation 45.9 fL (35.1-46.3); White Blood Cell Count 7.14 K/mm3 (4.00-11.30)
[2023-07-26 23:04] LABS: Bun/Creatinine Ratio 32.3 (12.0-20.0); C-REACTIVE PROTEIN, EXT RANGE 0.299 mg/dL (0.000-0.300); Creatinine, Blood 0.59 mg/dL (0.40-1.00); Potassium, Blood 3.1 mmol/L (3.5-5.5)
[2023-07-26] MEDS ORDERED: Vibramycin100 MG PO (23:22)
[2023-07-26 23:30] VITALS: BP 133/70
== END 2023-07-26 23:42 | disposition home or self-care (01) ==
LOC: ER 18:26
PROVIDERS: Emergency Medicine
DX: I89.0 Lymphedema, not elsewhere classified (principal); L03.116 Cellulitis of left lower limb; L03.115 Cellulitis of right lower limb; Z88.5 Allergy status to narcotic agent; Z91.09 Other allergy status, other than to drugs and biological substances; Z79.890 Hormone replacement therapy; Z79.899 Other long term (current) drug therapy; E03.9 Hypothyroidism, unspecified; Z23 Encounter for immunization
CPT/HCPCS: 80048; 85025; 86140; 90471; 90715; 99283-25; A9270

== ENCOUNTER 2023-07-30 11:21 | Day surgery (SDC) | payer OTHER | END 2023-07-30 22:58 | disposition home or self-care (01) | LOC: WOUND 11:21 | DX: I87.313 Chronic venous hypertension (idiopathic) with ulcer of bilateral lower extremity (principal); L97.212 Non-pressure chronic ulcer of right calf with fat layer exposed; L97.222 Non-pressure chronic ulcer of left calf with fat layer exposed | CPT/HCPCS: A9270; G0463 ==

== ENCOUNTER 2023-08-01 04:44 | Day surgery (SDC) | payer OTHER | END 2023-08-01 22:57 | disposition home or self-care (01) | LOC: WOUND 04:44 | DX: I87.313 Chronic venous hypertension (idiopathic) with ulcer of bilateral lower extremity (principal); L97.212 Non-pressure chronic ulcer of right calf with fat layer exposed; L97.222 Non-pressure chronic ulcer of left calf with fat layer exposed; I89.0 Lymphedema, not elsewhere classified ==

== ENCOUNTER 2023-08-15 02:24 | Day surgery (SDC) | payer OTHER | END 2023-08-15 23:49 | disposition home or self-care (01) | LOC: WOUND 02:24 | DX: I87.313 Chronic venous hypertension (idiopathic) with ulcer of bilateral lower extremity (principal); L97.212 Non-pressure chronic ulcer of right calf with fat layer exposed; L97.222 Non-pressure chronic ulcer of left calf with fat layer exposed; I89.0 Lymphedema, not elsewhere classified | CPT/HCPCS: A9270 ==

== ENCOUNTER 2023-08-17 00:34 | Day surgery (SDC) | payer OTHER | END 2023-08-17 22:47 | disposition home or self-care (01) | LOC: WOUND 00:34 | DX: I87.313 Chronic venous hypertension (idiopathic) with ulcer of bilateral lower extremity (principal); L97.212 Non-pressure chronic ulcer of right calf with fat layer exposed; L97.222 Non-pressure chronic ulcer of left calf with fat layer exposed | CPT/HCPCS: A9270; G0463 ==

== ENCOUNTER 2023-08-20 00:07 | Day surgery (SDC) | payer OTHER | END 2023-08-20 23:11 | disposition home or self-care (01) | LOC: WOUND 00:07 | DX: I87.313 Chronic venous hypertension (idiopathic) with ulcer of bilateral lower extremity (principal); I89.0 Lymphedema, not elsewhere classified; L97.212 Non-pressure chronic ulcer of right calf with fat layer exposed; L97.222 Non-pressure chronic ulcer of left calf with fat layer exposed; I73.9 Peripheral vascular disease, unspecified ==

== ENCOUNTER 2023-08-24 02:21 | Day surgery (SDC) | payer OTHER | END 2023-08-24 22:44 | disposition home or self-care (01) | LOC: WOUND 02:21 | DX: I87.313 Chronic venous hypertension (idiopathic) with ulcer of bilateral lower extremity (principal); I89.0 Lymphedema, not elsewhere classified; L97.212 Non-pressure chronic ulcer of right calf with fat layer exposed; L97.222 Non-pressure chronic ulcer of left calf with fat layer exposed; E78.5 Hyperlipidemia, unspecified; E66.01 Morbid (severe) obesity due to excess calories; Z68.38 Body mass index [BMI] 38.0-38.9, adult | CPT/HCPCS: A9270 ==

== ENCOUNTER 2023-08-28 01:42 | Day surgery (SDC) | payer OTHER | END 2023-08-28 22:39 | disposition home or self-care (01) | LOC: WOUND 01:42 | DX: I87.313 Chronic venous hypertension (idiopathic) with ulcer of bilateral lower extremity (principal); L97.212 Non-pressure chronic ulcer of right calf with fat layer exposed; L97.222 Non-pressure chronic ulcer of left calf with fat layer exposed; I89.0 Lymphedema, not elsewhere classified ==

== ENCOUNTER 2023-08-31 05:06 | Day surgery (SDC) | payer OTHER | END 2023-08-31 22:41 | disposition home or self-care (01) | LOC: WOUND 05:06 | DX: I89.0 Lymphedema, not elsewhere classified (principal); I87.313 Chronic venous hypertension (idiopathic) with ulcer of bilateral lower extremity; L97.212 Non-pressure chronic ulcer of right calf with fat layer exposed; L97.222 Non-pressure chronic ulcer of left calf with fat layer exposed | CPT/HCPCS: A9270 ==

== ENCOUNTER 2023-09-04 00:14 | Day surgery (SDC) | payer OTHER | END 2023-09-04 23:00 | disposition home or self-care (01) | LOC: WOUND 00:14 | DX: I87.313 Chronic venous hypertension (idiopathic) with ulcer of bilateral lower extremity (principal); L97.222 Non-pressure chronic ulcer of left calf with fat layer exposed; L97.212 Non-pressure chronic ulcer of right calf with fat layer exposed; I89.0 Lymphedema, not elsewhere classified | CPT/HCPCS: A9270 ==

== ENCOUNTER 2023-09-07 03:10 | Day surgery (SDC) | payer OTHER | END 2023-09-07 23:11 | disposition home or self-care (01) | LOC: WOUND 03:10 | DX: I87.313 Chronic venous hypertension (idiopathic) with ulcer of bilateral lower extremity (principal); L97.212 Non-pressure chronic ulcer of right calf with fat layer exposed; L97.222 Non-pressure chronic ulcer of left calf with fat layer exposed; I89.0 Lymphedema, not elsewhere classified ==

== ENCOUNTER 2023-09-12 04:44 | Day surgery (SDC) | payer OTHER | END 2023-09-12 23:16 | disposition home or self-care (01) | LOC: WOUND 04:44 | DX: I87.313 Chronic venous hypertension (idiopathic) with ulcer of bilateral lower extremity (principal); L97.212 Non-pressure chronic ulcer of right calf with fat layer exposed; L97.222 Non-pressure chronic ulcer of left calf with fat layer exposed; I89.0 Lymphedema, not elsewhere classified; E78.5 Hyperlipidemia, unspecified; E66.01 Morbid (severe) obesity due to excess calories | CPT/HCPCS: A9270 ==

== ENCOUNTER 2023-09-17 02:26 | Day surgery (SDC) | payer OTHER | END 2023-09-17 22:42 | disposition home or self-care (01) | LOC: WOUND 02:26 | DX: I87.313 Chronic venous hypertension (idiopathic) with ulcer of bilateral lower extremity (principal); L97.212 Non-pressure chronic ulcer of right calf with fat layer exposed; L97.222 Non-pressure chronic ulcer of left calf with fat layer exposed; I89.0 Lymphedema, not elsewhere classified | CPT/HCPCS: A9270 ==

== ENCOUNTER 2023-09-21 01:54 | Day surgery (SDC) | payer OTHER | END 2023-09-21 22:49 | disposition home or self-care (01) | LOC: WOUND 01:54 | DX: I87.313 Chronic venous hypertension (idiopathic) with ulcer of bilateral lower extremity (principal); I89.0 Lymphedema, not elsewhere classified; L97.212 Non-pressure chronic ulcer of right calf with fat layer exposed; L97.222 Non-pressure chronic ulcer of left calf with fat layer exposed ==

== ENCOUNTER 2023-09-26 05:56 | Day surgery (SDC) | payer OTHER | END 2023-09-26 23:00 | disposition home or self-care (01) | LOC: WOUND 05:56 | DX: I87.313 Chronic venous hypertension (idiopathic) with ulcer of bilateral lower extremity (principal); L97.212 Non-pressure chronic ulcer of right calf with fat layer exposed; L97.222 Non-pressure chronic ulcer of left calf with fat layer exposed; I89.0 Lymphedema, not elsewhere classified | CPT/HCPCS: A9270 ==

== ENCOUNTER 2023-10-03 02:20 | Day surgery (SDC) | payer OTHER | END 2023-10-03 22:47 | disposition home or self-care (01) | LOC: WOUND 02:20 | DX: I87.313 Chronic venous hypertension (idiopathic) with ulcer of bilateral lower extremity (principal); I89.0 Lymphedema, not elsewhere classified; L97.212 Non-pressure chronic ulcer of right calf with fat layer exposed; L97.222 Non-pressure chronic ulcer of left calf with fat layer exposed | CPT/HCPCS: A9270 ==

== ENCOUNTER 2023-10-10 01:54 | Day surgery (SDC) | payer OTHER | END 2023-10-10 22:37 | disposition home or self-care (01) | LOC: WOUND 01:54 | DX: I87.313 Chronic venous hypertension (idiopathic) with ulcer of bilateral lower extremity (principal); I89.0 Lymphedema, not elsewhere classified; L97.212 Non-pressure chronic ulcer of right calf with fat layer exposed; L97.222 Non-pressure chronic ulcer of left calf with fat layer exposed ==

== ENCOUNTER 2023-10-17 02:12 | Day surgery (SDC) | payer OTHER | END 2023-10-17 22:46 | disposition home or self-care (01) | LOC: WOUND 02:12 | DX: I87.313 Chronic venous hypertension (idiopathic) with ulcer of bilateral lower extremity (principal); I89.0 Lymphedema, not elsewhere classified; L97.212 Non-pressure chronic ulcer of right calf with fat layer exposed; L97.222 Non-pressure chronic ulcer of left calf with fat layer exposed; E78.5 Hyperlipidemia, unspecified | CPT/HCPCS: A9270 ==

== ENCOUNTER 2023-10-24 03:16 | Day surgery (SDC) | payer OTHER | END 2023-10-24 22:55 | disposition home or self-care (01) | LOC: WOUND 03:16 | DX: I87.313 Chronic venous hypertension (idiopathic) with ulcer of bilateral lower extremity (principal); L97.212 Non-pressure chronic ulcer of right calf with fat layer exposed; L97.222 Non-pressure chronic ulcer of left calf with fat layer exposed; I89.0 Lymphedema, not elsewhere classified | CPT/HCPCS: A9270 ==

== ENCOUNTER 2023-10-31 01:23 | Day surgery (SDC) | payer OTHER | END 2023-10-31 22:51 | disposition home or self-care (01) | LOC: WOUND 01:23 | DX: I89.0 Lymphedema, not elsewhere classified (principal); I87.313 Chronic venous hypertension (idiopathic) with ulcer of bilateral lower extremity; L97.212 Non-pressure chronic ulcer of right calf with fat layer exposed; L97.222 Non-pressure chronic ulcer of left calf with fat layer exposed; E66.01 Morbid (severe) obesity due to excess calories; E78.5 Hyperlipidemia, unspecified | CPT/HCPCS: A9270 ==

== ENCOUNTER 2023-11-07 05:21 | Day surgery (SDC) | payer OTHER | END 2023-11-07 22:53 | disposition home or self-care (01) | LOC: WOUND 05:21 | DX: I87.313 Chronic venous hypertension (idiopathic) with ulcer of bilateral lower extremity (principal); L97.212 Non-pressure chronic ulcer of right calf with fat layer exposed; L97.222 Non-pressure chronic ulcer of left calf with fat layer exposed; I89.0 Lymphedema, not elsewhere classified ==

== ENCOUNTER 2023-11-14 02:59 | Day surgery (SDC) | payer OTHER | END 2023-11-14 22:46 | disposition home or self-care (01) | LOC: WOUND 02:59 | DX: I87.313 Chronic venous hypertension (idiopathic) with ulcer of bilateral lower extremity (principal); L97.212 Non-pressure chronic ulcer of right calf with fat layer exposed; L97.222 Non-pressure chronic ulcer of left calf with fat layer exposed; I89.0 Lymphedema, not elsewhere classified; E78.5 Hyperlipidemia, unspecified; E66.01 Morbid (severe) obesity due to excess calories; Z68.38 Body mass index [BMI] 38.0-38.9, adult | CPT/HCPCS: A9270 ==

== ENCOUNTER 2023-11-22 01:46 | Day surgery (SDC) | payer OTHER | END 2023-11-22 22:54 | disposition home or self-care (01) | LOC: WOUND 01:46 | DX: I87.313 Chronic venous hypertension (idiopathic) with ulcer of bilateral lower extremity (principal); L97.212 Non-pressure chronic ulcer of right calf with fat layer exposed; L97.222 Non-pressure chronic ulcer of left calf with fat layer exposed; I89.0 Lymphedema, not elsewhere classified | CPT/HCPCS: A9270; G0463 ==

== ENCOUNTER 2023-11-29 02:08 | Day surgery (SDC) | payer OTHER | END 2023-11-29 22:58 | disposition home or self-care (01) | LOC: WOUND 02:08 | DX: L97.812 Non-pressure chronic ulcer of other part of right lower leg with fat layer exposed (principal); L97.829 Non-pressure chronic ulcer of other part of left lower leg with unspecified severity; I89.0 Lymphedema, not elsewhere classified; E78.5 Hyperlipidemia, unspecified; E66.01 Morbid (severe) obesity due to excess calories | CPT/HCPCS: A9270; G0463 ==

== ENCOUNTER 2023-12-06 04:58 | Day surgery (SDC) | payer OTHER | END 2023-12-06 23:01 | disposition home or self-care (01) | LOC: WOUND 04:58 | DX: I87.313 Chronic venous hypertension (idiopathic) with ulcer of bilateral lower extremity (principal); L97.212 Non-pressure chronic ulcer of right calf with fat layer exposed; L97.313 Non-pressure chronic ulcer of right ankle with necrosis of muscle; I89.0 Lymphedema, not elsewhere classified; E78.5 Hyperlipidemia, unspecified; E66.01 Morbid (severe) obesity due to excess calories; Z68.38 Body mass index [BMI] 38.0-38.9, adult | CPT/HCPCS: A9270 ==

== ENCOUNTER 2023-12-13 01:38 | Day surgery (SDC) | payer OTHER | END 2023-12-13 23:20 | disposition home or self-care (01) | LOC: WOUND 01:38 | DX: I87.313 Chronic venous hypertension (idiopathic) with ulcer of bilateral lower extremity (principal); E78.5 Hyperlipidemia, unspecified; E66.01 Morbid (severe) obesity due to excess calories; Z68.38 Body mass index [BMI] 38.0-38.9, adult; L97.212 Non-pressure chronic ulcer of right calf with fat layer exposed; L97.222 Non-pressure chronic ulcer of left calf with fat layer exposed; I89.0 Lymphedema, not elsewhere classified | CPT/HCPCS: A9270 ==

== ENCOUNTER 2023-12-19 00:53 | Day surgery (SDC) | payer OTHER ==
[2023-12-19] MEDS ORDERED: Triamcinolone Acet 0.1% Cream 15 gm ONE (14:33)
== END 2023-12-19 23:30 | disposition home or self-care (01) ==
LOC: WOUND 00:53
DX: I87.313 Chronic venous hypertension (idiopathic) with ulcer of bilateral lower extremity (principal); I89.0 Lymphedema, not elsewhere classified; E78.5 Hyperlipidemia, unspecified; E66.01 Morbid (severe) obesity due to excess calories; Z68.38 Body mass index [BMI] 38.0-38.9, adult; L97.212 Non-pressure chronic ulcer of right calf with fat layer exposed; L97.222 Non-pressure chronic ulcer of left calf with fat layer exposed
CPT/HCPCS: A9270

== ENCOUNTER 2023-12-27 01:32 | Day surgery (SDC) | payer OTHER ==
[2023-12-27] MEDS ORDERED: Triamcinolone Acet 0.1% Cream 15 gm ONE (13:24)
== END 2023-12-27 22:49 | disposition home or self-care (01) ==
LOC: WOUND 01:32
PROC: 5A02115 Assistance with Cardiac Output using Pulsatile Compression, Intermittent (ICD-10-PCS; principal; 2023-12-27)
DX: L97.212 Non-pressure chronic ulcer of right calf with fat layer exposed (principal); L97.222 Non-pressure chronic ulcer of left calf with fat layer exposed; I89.0 Lymphedema, not elsewhere classified; I87.313 Chronic venous hypertension (idiopathic) with ulcer of bilateral lower extremity
CPT/HCPCS: A9270

== ENCOUNTER 2023-12-31 09:24 | Day surgery (SDC) | payer OTHER | END 2023-12-31 22:45 | disposition home or self-care (01) | LOC: WOUND 09:24 | DX: I87.313 Chronic venous hypertension (idiopathic) with ulcer of bilateral lower extremity (principal); I89.0 Lymphedema, not elsewhere classified; L97.222 Non-pressure chronic ulcer of left calf with fat layer exposed; L97.212 Non-pressure chronic ulcer of right calf with fat layer exposed ==

== ENCOUNTER 2024-01-09 01:53 | Day surgery (SDC) | payer OTHER ==
[2024-01-09] MEDS ORDERED: Triamcinolone Acet 0.1% Cream 15 gm ONE (08:22)
== END 2024-01-09 22:53 | disposition home or self-care (01) ==
LOC: WOUND 01:53
DX: I87.313 Chronic venous hypertension (idiopathic) with ulcer of bilateral lower extremity (principal); L97.212 Non-pressure chronic ulcer of right calf with fat layer exposed; L97.222 Non-pressure chronic ulcer of left calf with fat layer exposed; I89.0 Lymphedema, not elsewhere classified
CPT/HCPCS: A9270

== ENCOUNTER 2024-02-21 02:34 | Day surgery (SDC) | payer OTHER ==
[2024-02-21] MEDS ORDERED: Triamcinolone Acet 0.1% Cream 15 gm ONE (12:53)
== END 2024-02-21 23:09 | disposition home or self-care (01) ==
LOC: WOUND 02:34
PROC: 5A02115 Assistance with Cardiac Output using Pulsatile Compression, Intermittent (ICD-10-PCS; principal; 2024-02-21)
DX: L97.212 Non-pressure chronic ulcer of right calf with fat layer exposed (principal); L97.222 Non-pressure chronic ulcer of left calf with fat layer exposed; I89.0 Lymphedema, not elsewhere classified; I87.313 Chronic venous hypertension (idiopathic) with ulcer of bilateral lower extremity; E66.01 Morbid (severe) obesity due to excess calories; E78.5 Hyperlipidemia, unspecified
CPT/HCPCS: A9270

== ENCOUNTER 2024-03-06 04:46 | Day surgery (SDC) | payer OTHER | END 2024-03-06 23:00 | disposition home or self-care (01) | LOC: WOUND 04:46 | DX: I87.313 Chronic venous hypertension (idiopathic) with ulcer of bilateral lower extremity (principal); L97.212 Non-pressure chronic ulcer of right calf with fat layer exposed; L97.222 Non-pressure chronic ulcer of left calf with fat layer exposed; I89.0 Lymphedema, not elsewhere classified ==

== ENCOUNTER 2024-03-13 02:47 | Day surgery (SDC) | payer OTHER ==
[2024-03-13] MEDS ORDERED: Triamcinolone Acet 0.1% Cream 15 gm ONE (12:44)
== END 2024-03-13 22:48 | disposition home or self-care (01) ==
LOC: WOUND 02:47
DX: I87.313 Chronic venous hypertension (idiopathic) with ulcer of bilateral lower extremity (principal); L97.212 Non-pressure chronic ulcer of right calf with fat layer exposed; L97.222 Non-pressure chronic ulcer of left calf with fat layer exposed; I89.0 Lymphedema, not elsewhere classified
CPT/HCPCS: A9270

== ENCOUNTER 2024-03-20 03:45 | Day surgery (SDC) | payer OTHER | END 2024-03-20 23:11 | disposition home or self-care (01) | LOC: WOUND 03:45 | DX: L97.822 Non-pressure chronic ulcer of other part of left lower leg with fat layer exposed (principal); I87.313 Chronic venous hypertension (idiopathic) with ulcer of bilateral lower extremity; I89.0 Lymphedema, not elsewhere classified; E66.01 Morbid (severe) obesity due to excess calories; E78.5 Hyperlipidemia, unspecified; Z68.38 Body mass index [BMI] 38.0-38.9, adult | CPT/HCPCS: G0463 ==

== ENCOUNTER 2024-05-08 03:25 | Day surgery (SDC) | payer OTHER | END 2024-05-08 22:50 | disposition home or self-care (01) | LOC: WOUND 03:25 | DX: I87.313 Chronic venous hypertension (idiopathic) with ulcer of bilateral lower extremity (principal); L97.212 Non-pressure chronic ulcer of right calf with fat layer exposed; L97.222 Non-pressure chronic ulcer of left calf with fat layer exposed; I89.0 Lymphedema, not elsewhere classified; E78.5 Hyperlipidemia, unspecified | CPT/HCPCS: G0463 ==

== ENCOUNTER 2024-07-16 11:23 | Day surgery (SDC) | payer OTHER ==
[~2024-07-16 11:23] MED LIST changes: +Levaquin500 MG PO
[2024-07-16] MEDS ORDERED: Triamcinolone Acet 0.1% Cream 15 gm ONE (13:32)
== END 2024-07-16 22:46 | disposition home or self-care (01) ==
LOC: WOUND 11:23
DX: L97.212 Non-pressure chronic ulcer of right calf with fat layer exposed (principal); L97.222 Non-pressure chronic ulcer of left calf with fat layer exposed; L03.116 Cellulitis of left lower limb; L03.115 Cellulitis of right lower limb; I89.0 Lymphedema, not elsewhere classified; E78.5 Hyperlipidemia, unspecified; J45.909 Unspecified asthma, uncomplicated; E03.9 Hypothyroidism, unspecified; Z88.5 Allergy status to narcotic agent; Z88.1 Allergy status to other antibiotic agents; Z68.38 Body mass index [BMI] 38.0-38.9, adult
CPT/HCPCS: A9270; G0463

== ENCOUNTER 2024-07-18 01:47 | Day surgery (SDC) | payer OTHER ==
[2024-07-18] MEDS ORDERED: Triamcinolone Acet 0.1% Cream 15 gm ONE (10:46)
== END 2024-07-18 23:30 | disposition home or self-care (01) ==
LOC: WOUND 01:47
DX: L97.212 Non-pressure chronic ulcer of right calf with fat layer exposed (principal); L97.222 Non-pressure chronic ulcer of left calf with fat layer exposed; I89.0 Lymphedema, not elsewhere classified
CPT/HCPCS: A9270

== ENCOUNTER 2024-07-31 03:02 | Day surgery (SDC) | payer OTHER ==
[2024-07-31] MEDS ORDERED: Triamcinolone Acet 0.1% Cream 15 gm ONE (14:16)
== END 2024-07-31 22:54 | disposition home or self-care (01) ==
LOC: WOUND 03:02
DX: L97.212 Non-pressure chronic ulcer of right calf with fat layer exposed (principal); L97.222 Non-pressure chronic ulcer of left calf with fat layer exposed; I89.0 Lymphedema, not elsewhere classified
CPT/HCPCS: A9270

== ENCOUNTER 2024-08-07 02:54 | Day surgery (SDC) | payer OTHER | END 2024-08-07 23:00 | disposition home or self-care (01) | LOC: WOUND 02:54 | DX: L97.212 Non-pressure chronic ulcer of right calf with fat layer exposed (principal); L97.222 Non-pressure chronic ulcer of left calf with fat layer exposed; I89.0 Lymphedema, not elsewhere classified; E78.5 Hyperlipidemia, unspecified; E66.01 Morbid (severe) obesity due to excess calories; Z68.38 Body mass index [BMI] 38.0-38.9, adult ==

== ENCOUNTER 2024-08-14 02:17 | Day surgery (SDC) | payer OTHER | END 2024-08-14 23:00 | disposition home or self-care (01) | LOC: WOUND 02:17 | DX: L97.222 Non-pressure chronic ulcer of left calf with fat layer exposed (principal); L97.212 Non-pressure chronic ulcer of right calf with fat layer exposed; I89.0 Lymphedema, not elsewhere classified; E78.5 Hyperlipidemia, unspecified; E66.01 Morbid (severe) obesity due to excess calories; Z68.38 Body mass index [BMI] 38.0-38.9, adult | CPT/HCPCS: G0463 ==

== ENCOUNTER 2024-08-28 12:18 | Day surgery (SDC) | payer OTHER | END 2024-08-28 22:57 | disposition home or self-care (01) | LOC: WOUND 12:18 | DX: I89.0 Lymphedema, not elsewhere classified (principal); I73.9 Peripheral vascular disease, unspecified; E78.5 Hyperlipidemia, unspecified; E66.01 Morbid (severe) obesity due to excess calories; Z68.38 Body mass index [BMI] 38.0-38.9, adult ==

== ENCOUNTER 2024-09-04 02:59 | Day surgery (SDC) | payer OTHER | END 2024-09-04 23:26 | disposition home or self-care (01) | LOC: WOUND 02:59 | DX: I89.0 Lymphedema, not elsewhere classified (principal); I87.312 Chronic venous hypertension (idiopathic) with ulcer of left lower extremity; L97.222 Non-pressure chronic ulcer of left calf with fat layer exposed; I87.2 Venous insufficiency (chronic) (peripheral); E66.01 Morbid (severe) obesity due to excess calories; E78.5 Hyperlipidemia, unspecified ==

== ENCOUNTER 2024-09-08 08:55 | Day surgery (SDC) | payer OTHER | END 2024-09-08 23:45 | disposition home or self-care (01) | LOC: WOUND 08:55 | DX: I87.312 Chronic venous hypertension (idiopathic) with ulcer of left lower extremity (principal); L97.222 Non-pressure chronic ulcer of left calf with fat layer exposed; I89.0 Lymphedema, not elsewhere classified ==

== ENCOUNTER 2024-09-11 03:11 | Day surgery (SDC) | payer OTHER ==
[2024-09-11] MEDS ORDERED: Miconazole Nitrate 2% 85 GM PWD ONE (09:10)
== END 2024-09-11 23:00 | disposition home or self-care (01) ==
LOC: WOUND 03:11
DX: I87.312 Chronic venous hypertension (idiopathic) with ulcer of left lower extremity (principal); L97.222 Non-pressure chronic ulcer of left calf with fat layer exposed; I89.0 Lymphedema, not elsewhere classified; I87.2 Venous insufficiency (chronic) (peripheral)
CPT/HCPCS: A9270

== ENCOUNTER 2024-09-18 03:00 | Day surgery (SDC) | payer OTHER | END 2024-09-18 23:00 | disposition home or self-care (01) | LOC: WOUND 03:00 | DX: I89.0 Lymphedema, not elsewhere classified (principal); L97.222 Non-pressure chronic ulcer of left calf with fat layer exposed; I87.312 Chronic venous hypertension (idiopathic) with ulcer of left lower extremity; I87.2 Venous insufficiency (chronic) (peripheral); E66.01 Morbid (severe) obesity due to excess calories; E78.5 Hyperlipidemia, unspecified ==

== ENCOUNTER 2024-10-08 01:00 | Day surgery (SDC) | payer OTHER | END 2024-10-08 22:56 | disposition home or self-care (01) | LOC: WOUND 01:00 | DX: I89.0 Lymphedema, not elsewhere classified (principal); E66.01 Morbid (severe) obesity due to excess calories; E78.5 Hyperlipidemia, unspecified; I87.312 Chronic venous hypertension (idiopathic) with ulcer of left lower extremity; I87.2 Venous insufficiency (chronic) (peripheral); L97.222 Non-pressure chronic ulcer of left calf with fat layer exposed ==

== ENCOUNTER 2024-10-15 03:00 | Day surgery (SDC) | payer OTHER | END 2024-10-15 23:00 | disposition home or self-care (01) | LOC: WOUND 03:00 | DX: I89.0 Lymphedema, not elsewhere classified (principal); I87.2 Venous insufficiency (chronic) (peripheral); E78.5 Hyperlipidemia, unspecified; E66.01 Morbid (severe) obesity due to excess calories; Z68.38 Body mass index [BMI] 38.0-38.9, adult ==

== ENCOUNTER 2024-10-22 03:30 | Day surgery (SDC) | payer OTHER | END 2024-10-22 23:00 | disposition home or self-care (01) | LOC: WOUND 03:30 | DX: I87.312 Chronic venous hypertension (idiopathic) with ulcer of left lower extremity (principal); L97.222 Non-pressure chronic ulcer of left calf with fat layer exposed; L97.322 Non-pressure chronic ulcer of left ankle with fat layer exposed; I89.0 Lymphedema, not elsewhere classified; I87.2 Venous insufficiency (chronic) (peripheral); E78.5 Hyperlipidemia, unspecified; E03.8 Other specified hypothyroidism | CPT/HCPCS: 36415; 84443 ==

== ENCOUNTER 2024-10-28 04:48 | Day surgery (SDC) | payer OTHER | END 2024-10-28 23:00 | disposition home or self-care (01) | LOC: WOUND 04:48 | DX: I89.0 Lymphedema, not elsewhere classified (principal); I87.2 Venous insufficiency (chronic) (peripheral); E78.5 Hyperlipidemia, unspecified; E66.01 Morbid (severe) obesity due to excess calories; Z68.38 Body mass index [BMI] 38.0-38.9, adult ==

== ENCOUNTER 2024-11-03 04:40 | Day surgery (SDC) | payer OTHER | END 2024-11-03 23:47 | disposition home or self-care (01) | LOC: WOUND 04:40 | DX: L97.222 Non-pressure chronic ulcer of left calf with fat layer exposed (principal); L97.329 Non-pressure chronic ulcer of left ankle with unspecified severity; I89.0 Lymphedema, not elsewhere classified; I87.312 Chronic venous hypertension (idiopathic) with ulcer of left lower extremity; I87.2 Venous insufficiency (chronic) (peripheral); E78.5 Hyperlipidemia, unspecified ==

== ENCOUNTER 2024-11-11 03:17 | Day surgery (SDC) | payer OTHER | END 2024-11-11 23:00 | disposition home or self-care (01) | LOC: WOUND 03:17 | DX: I89.0 Lymphedema, not elsewhere classified (principal); I87.2 Venous insufficiency (chronic) (peripheral); E78.5 Hyperlipidemia, unspecified; E66.01 Morbid (severe) obesity due to excess calories; Z68.38 Body mass index [BMI] 38.0-38.9, adult ==

== ENCOUNTER 2024-11-18 06:07 | Day surgery (SDC) | payer OTHER | END 2024-11-18 23:00 | disposition home or self-care (01) | LOC: WOUND 06:07 | DX: I89.0 Lymphedema, not elsewhere classified (principal); I87.2 Venous insufficiency (chronic) (peripheral); E78.5 Hyperlipidemia, unspecified; E66.01 Morbid (severe) obesity due to excess calories; Z68.38 Body mass index [BMI] 38.0-38.9, adult ==

== ENCOUNTER 2024-11-25 08:29 | Day surgery (SDC) | payer OTHER | END 2024-11-25 23:00 | disposition home or self-care (01) | LOC: WOUND 08:29 | DX: I89.0 Lymphedema, not elsewhere classified (principal); I87.2 Venous insufficiency (chronic) (peripheral); E78.5 Hyperlipidemia, unspecified; E66.01 Morbid (severe) obesity due to excess calories; Z68.38 Body mass index [BMI] 38.0-38.9, adult ==

== ENCOUNTER 2024-12-03 09:38 | Day surgery (SDC) | payer OTHER | END 2024-12-03 23:00 | disposition home or self-care (01) | LOC: WOUND 09:38 | DX: I89.0 Lymphedema, not elsewhere classified (principal); I87.2 Venous insufficiency (chronic) (peripheral) ==

== ENCOUNTER 2024-12-09 05:27 | Day surgery (SDC) | payer OTHER | END 2024-12-09 23:00 | disposition home or self-care (01) | LOC: WOUND 05:27 | DX: I89.0 Lymphedema, not elsewhere classified (principal); S90.511D Abrasion, right ankle, subsequent encounter; S80.811D Abrasion, right lower leg, subsequent encounter; X58.XXXD Exposure to other specified factors, subsequent encounter; I87.2 Venous insufficiency (chronic) (peripheral); E78.5 Hyperlipidemia, unspecified; E66.01 Morbid (severe) obesity due to excess calories; Z68.38 Body mass index [BMI] 38.0-38.9, adult ==

== ENCOUNTER 2024-12-16 01:38 | Day surgery (SDC) | payer OTHER | END 2024-12-16 23:00 | disposition home or self-care (01) | LOC: WOUND 01:38 | DX: I89.0 Lymphedema, not elsewhere classified (principal); S80.811D Abrasion, right lower leg, subsequent encounter; L97.222 Non-pressure chronic ulcer of left calf with fat layer exposed; L97.812 Non-pressure chronic ulcer of other part of right lower leg with fat layer exposed; I87.313 Chronic venous hypertension (idiopathic) with ulcer of bilateral lower extremity; I87.2 Venous insufficiency (chronic) (peripheral); X58.XXXD Exposure to other specified factors, subsequent encounter ==

== ENCOUNTER 2024-12-23 09:29 | Day surgery (SDC) | payer OTHER | END 2024-12-23 23:00 | disposition home or self-care (01) | LOC: WOUND 09:29 | DX: I89.0 Lymphedema, not elsewhere classified (principal); S80.811D Abrasion, right lower leg, subsequent encounter; L97.222 Non-pressure chronic ulcer of left calf with fat layer exposed; L97.812 Non-pressure chronic ulcer of other part of right lower leg with fat layer exposed; I87.313 Chronic venous hypertension (idiopathic) with ulcer of bilateral lower extremity; I87.2 Venous insufficiency (chronic) (peripheral); X58.XXXD Exposure to other specified factors, subsequent encounter ==

== ENCOUNTER 2025-01-06 00:37 | Day surgery (SDC) | payer OTHER | END 2025-01-06 23:00 | disposition home or self-care (01) | LOC: WOUND 00:37 | DX: I89.0 Lymphedema, not elsewhere classified (principal); I87.2 Venous insufficiency (chronic) (peripheral); E78.5 Hyperlipidemia, unspecified; E66.01 Morbid (severe) obesity due to excess calories; Z68.38 Body mass index [BMI] 38.0-38.9, adult ==

== ENCOUNTER 2025-01-13 00:37 | Day surgery (SDC) | payer OTHER ==
[2025-01-13] MEDS ORDERED: Miconazole Nitrate 2% 85 GM PWD ONE (11:15)
== END 2025-01-13 23:00 | disposition home or self-care (01) ==
LOC: WOUND 00:37
DX: I87.313 Chronic venous hypertension (idiopathic) with ulcer of bilateral lower extremity (principal); L97.322 Non-pressure chronic ulcer of left ankle with fat layer exposed; L97.222 Non-pressure chronic ulcer of left calf with fat layer exposed; L97.812 Non-pressure chronic ulcer of other part of right lower leg with fat layer exposed; I89.0 Lymphedema, not elsewhere classified; I87.2 Venous insufficiency (chronic) (peripheral); E78.5 Hyperlipidemia, unspecified
CPT/HCPCS: A9270

== ENCOUNTER 2025-01-20 03:33 | Day surgery (SDC) | payer OTHER | END 2025-01-20 23:10 | disposition home or self-care (01) | LOC: WOUND 03:33 | DX: I87.313 Chronic venous hypertension (idiopathic) with ulcer of bilateral lower extremity (principal); L97.322 Non-pressure chronic ulcer of left ankle with fat layer exposed; L97.222 Non-pressure chronic ulcer of left calf with fat layer exposed; L97.812 Non-pressure chronic ulcer of other part of right lower leg with fat layer exposed; I89.0 Lymphedema, not elsewhere classified; I87.2 Venous insufficiency (chronic) (peripheral); E78.5 Hyperlipidemia, unspecified ==

== ENCOUNTER 2025-01-27 00:46 | Day surgery (SDC) | payer OTHER | END 2025-01-27 23:04 | disposition home or self-care (01) | LOC: WOUND 00:46 | DX: I89.0 Lymphedema, not elsewhere classified (principal); I87.313 Chronic venous hypertension (idiopathic) with ulcer of bilateral lower extremity; L97.222 Non-pressure chronic ulcer of left calf with fat layer exposed; I87.2 Venous insufficiency (chronic) (peripheral) ==

== ENCOUNTER 2025-02-10 02:22 | Day surgery (SDC) | payer OTHER | END 2025-02-10 23:00 | disposition home or self-care (01) | LOC: WOUND 02:22 | DX: I89.0 Lymphedema, not elsewhere classified (principal); I87.312 Chronic venous hypertension (idiopathic) with ulcer of left lower extremity; L97.322 Non-pressure chronic ulcer of left ankle with fat layer exposed; I87.2 Venous insufficiency (chronic) (peripheral); E78.5 Hyperlipidemia, unspecified; E66.01 Morbid (severe) obesity due to excess calories; Z68.38 Body mass index [BMI] 38.0-38.9, adult | CPT/HCPCS: G0463 ==

== ENCOUNTER 2025-03-15 17:31 | Emergency (ER) | payer OTHER ==
[~2025-03-15] VITALS: Ht 167.6 cm; Wt 108.9 kg
[2025-03-15 17:56] LABS: BASOPHILS ABSOLUTE AUTO 0.05 K/mm3 (0.00-0.23); BASOPHILS PERCENT AUTO 1 % (0-2); EOSINOPHILS ABSOLUTE AUTO 0.12 K/mm3 (0.00-0.68); EOSINOPHILS PERCENT AUTO 2 % (0-6); Hematocrit 41.2 % (33.0-51.0); Hemoglobin 13.6 g/dL (11.5-16.0); IMMATURE GRAN ABSOLUTE AUTO 0.01 K/mm3 (0.00-0.10); IMMATURE GRAN PERCENT AUTO 0 % (0-1); LYMPHOCYTES ABSOLUTE AUTO 1.25 K/mm3 (0.84-5.20); LYMPHOCYTES PERCENT AUTO 19 % (21-46); MONOCYTES ABSOLUTE AUTO 0.76 K/mm3 (0.16-1.47); MONOCYTES PERCENT AUTO 12 % (4-13); Mean Corpuscular HGB 30.8 pg (26.0-34.0); Mean Corpuscular Volume 93 fL (80-100); Mean Platelet Volume 10.4 fL (9.1-12.4); NEUTROPHILS ABSOLUTE AUTO 4.33 K/mm3 (1.96-9.15); NEUTROPHILS PERCENT AUTO 66 % (41-73); Platelet Count 219 K/mm3 (150-400); RDW Coefficient Variation 12.3 % (11.7-14.2); RDW Standard Deviation 42.5 fL (35.1-46.3); Red Blood Cell Count 4.41 M/mm3 (3.80-5.20); White Blood Cell Count 6.52 K/mm3 (4.00-11.30)
[2025-03-15] MEDS ORDERED: CeFAZolin Sodium 1,000 MG in NS 50 ML IV ONE (18:15)
[2025-03-15 18:16] LABS: Albumin, Blood 3.3 g/dL (3.4-5.0); Albumin/Globulin Ratio 0.8 (0.8-1.8); Bilirubin, Total 0.5 mg/dL (0.1-1.0); Bun/Creatinine Ratio 25.5 (12.0-20.0); Calcium, Blood 9.4 mg/dL (8.5-10.1); Creatinine, Blood 0.55 mg/dL (0.40-1.00); Globulin, Blood 3.9 g/dL (2.2-4.0); Potassium, Blood 3.6 mmol/L (3.5-5.5); Total Protein, Blood 7.2 g/dL (6.4-8.2)
[2025-03-15] MEDS ORDERED: Mupirocin 2% Ointment 22 GM TOP ONE (19:25)
[2025-03-15] MEDS ORDERED: Mupirocin22 GM TOP (19:26)
[2025-03-15] MEDS ORDERED: CEPH500 PO (19:26)
[2025-03-15 20:19] VITALS: BP 148/82
== END 2025-03-15 20:24 | disposition home or self-care (01) ==
LOC: ER 17:31
PROVIDERS: Emergency Medicine
DX: L03.115 Cellulitis of right lower limb (principal); L03.116 Cellulitis of left lower limb; Z79.899 Other long term (current) drug therapy; Z79.890 Hormone replacement therapy
CPT/HCPCS: 80053; 85025; 93005; 93010; 96365; 99284-25; A9270; J0690

== ENCOUNTER 2025-03-17 02:32 | Day surgery (SDC) | payer OTHER ==
[2025-03-17] MEDS ORDERED: Triamcinolone Acet 0.1% Cream 15 gm ONE (08:39)
== END 2025-03-17 23:36 | disposition home or self-care (01) ==
LOC: WOUND 02:32
DX: L97.212 Non-pressure chronic ulcer of right calf with fat layer exposed (principal); I87.2 Venous insufficiency (chronic) (peripheral); I89.0 Lymphedema, not elsewhere classified; I73.9 Peripheral vascular disease, unspecified; E66.01 Morbid (severe) obesity due to excess calories; E78.5 Hyperlipidemia, unspecified; J45.909 Unspecified asthma, uncomplicated; Z88.5 Allergy status to narcotic agent
CPT/HCPCS: A9270; G0463

== ENCOUNTER 2025-03-23 03:32 | Day surgery (SDC) | payer OTHER ==
[2025-03-23] MEDS ORDERED: Miconazole Nitrate 2% 85 GM PWD ONE (10:28)
== END 2025-03-23 23:18 | disposition home or self-care (01) ==
LOC: WOUND 03:32
DX: I87.311 Chronic venous hypertension (idiopathic) with ulcer of right lower extremity (principal); L97.812 Non-pressure chronic ulcer of other part of right lower leg with fat layer exposed; L97.212 Non-pressure chronic ulcer of right calf with fat layer exposed; I87.2 Venous insufficiency (chronic) (peripheral); I89.0 Lymphedema, not elsewhere classified; E78.5 Hyperlipidemia, unspecified; E66.01 Morbid (severe) obesity due to excess calories
CPT/HCPCS: A9270

== ENCOUNTER 2025-05-11 08:00 | Day surgery (SDC) | payer OTHER | END 2025-05-11 23:00 | disposition home or self-care (01) | LOC: WOUND 08:00 | DX: I89.0 Lymphedema, not elsewhere classified (principal); I87.311 Chronic venous hypertension (idiopathic) with ulcer of right lower extremity; L97.822 Non-pressure chronic ulcer of other part of left lower leg with fat layer exposed; I87.2 Venous insufficiency (chronic) (peripheral) ==

== ENCOUNTER 2025-05-19 04:36 | Day surgery (SDC) | payer OTHER | END 2025-05-19 22:00 | disposition home or self-care (01) | LOC: WOUND 04:36 | DX: L97.322 Non-pressure chronic ulcer of left ankle with fat layer exposed (principal); I87.2 Venous insufficiency (chronic) (peripheral); I89.0 Lymphedema, not elsewhere classified ==

== ENCOUNTER 2025-05-26 00:50 | Day surgery (SDC) | payer OTHER ==
[2025-05-26] MEDS ORDERED: Lidocaine HCl 4% Cream 5 GM ONE (10:42)
== END 2025-05-26 23:00 | disposition home or self-care (01) ==
LOC: WOUND 00:50
DX: L97.322 Non-pressure chronic ulcer of left ankle with fat layer exposed (principal); I89.0 Lymphedema, not elsewhere classified; I87.2 Venous insufficiency (chronic) (peripheral)
CPT/HCPCS: A9270

== ENCOUNTER 2025-06-02 00:51 | Day surgery (SDC) | payer OTHER | END 2025-06-02 23:07 | disposition home or self-care (01) | LOC: WOUND 00:51 | DX: I87.312 Chronic venous hypertension (idiopathic) with ulcer of left lower extremity (principal); L97.322 Non-pressure chronic ulcer of left ankle with fat layer exposed; L97.222 Non-pressure chronic ulcer of left calf with fat layer exposed; I87.2 Venous insufficiency (chronic) (peripheral); I89.0 Lymphedema, not elsewhere classified; E66.01 Morbid (severe) obesity due to excess calories ==

== ENCOUNTER 2025-06-09 01:06 | Day surgery (SDC) | payer OTHER ==
[2025-06-09] MEDS ORDERED: Lidocaine HCl 4% Cream 5 GM ONE (12:59)
== END 2025-06-09 23:00 | disposition home or self-care (01) ==
LOC: WOUND 01:06
DX: L97.329 Non-pressure chronic ulcer of left ankle with unspecified severity (principal); L97.222 Non-pressure chronic ulcer of left calf with fat layer exposed; I87.2 Venous insufficiency (chronic) (peripheral); I89.0 Lymphedema, not elsewhere classified
CPT/HCPCS: A9270

== ENCOUNTER → 2025-06-16 | Day surgery (SDC) | payer OTHER | END | disposition home or self-care (01) | LOC: WOUND | DX: I87.312 Chronic venous hypertension (idiopathic) with ulcer of left lower extremity (principal); L97.322 Non-pressure chronic ulcer of left ankle with fat layer exposed; L97.222 Non-pressure chronic ulcer of left calf with fat layer exposed; I87.2 Venous insufficiency (chronic) (peripheral); I89.0 Lymphedema, not elsewhere classified ==

== ENCOUNTER → 2025-06-23 | Day surgery (SDC) | payer OTHER ==
[~2025-06-23] MED LIST changes: +Lidocaine HCl 4% Cream 5 GM ONE
== END ==
LOC: WOUND 04:30
DX: L97.822 Non-pressure chronic ulcer of other part of left lower leg with fat layer exposed (principal); I89.0 Lymphedema, not elsewhere classified; I87.2 Venous insufficiency (chronic) (peripheral); E78.5 Hyperlipidemia, unspecified
CPT/HCPCS: A9270

== ENCOUNTER 2025-07-02 02:23 | Day surgery (SDC) | payer OTHER ==
[~2025-07-02 02:23] MED LIST changes: -Lidocaine HCl 4% Cream 5 GM ONE
[2025-07-02] MEDS ORDERED: Lidocaine HCl 4% Cream 5 GM ONE (15:43)
== END 2025-07-02 23:00 | disposition home or self-care (01) ==
LOC: WOUND 02:23
DX: I89.0 Lymphedema, not elsewhere classified (principal); L97.322 Non-pressure chronic ulcer of left ankle with fat layer exposed; L97.822 Non-pressure chronic ulcer of other part of left lower leg with fat layer exposed; I87.2 Venous insufficiency (chronic) (peripheral); E78.5 Hyperlipidemia, unspecified; E66.01 Morbid (severe) obesity due to excess calories; Z68.38 Body mass index [BMI] 38.0-38.9, adult
CPT/HCPCS: A9270

== ENCOUNTER 2025-07-07 01:03 | Day surgery (SDC) | payer OTHER | END 2025-07-07 23:00 | disposition home or self-care (01) | LOC: WOUND 01:03 | DX: I89.0 Lymphedema, not elsewhere classified (principal); L97.822 Non-pressure chronic ulcer of other part of left lower leg with fat layer exposed; I87.2 Venous insufficiency (chronic) (peripheral); E78.5 Hyperlipidemia, unspecified; E66.01 Morbid (severe) obesity due to excess calories; Z68.38 Body mass index [BMI] 38.0-38.9, adult ==

== ENCOUNTER 2025-07-14 01:21 | Day surgery (SDC) | payer OTHER ==
[2025-07-14] MEDS ORDERED: Lidocaine HCl 4% Cream 5 GM ONE (11:38)
== END 2025-07-14 23:00 | disposition home or self-care (01) ==
LOC: WOUND 01:21
DX: I89.0 Lymphedema, not elsewhere classified (principal); L97.822 Non-pressure chronic ulcer of other part of left lower leg with fat layer exposed; I87.2 Venous insufficiency (chronic) (peripheral)
CPT/HCPCS: A9270

== ENCOUNTER 2025-07-21 04:42 | Day surgery (SDC) | payer OTHER | END 2025-07-21 23:59 | disposition home or self-care (01) | LOC: WOUND 04:42 | DX: L97.822 Non-pressure chronic ulcer of other part of left lower leg with fat layer exposed (principal); L97.322 Non-pressure chronic ulcer of left ankle with fat layer exposed; L97.222 Non-pressure chronic ulcer of left calf with fat layer exposed; I89.0 Lymphedema, not elsewhere classified; I87.2 Venous insufficiency (chronic) (peripheral); E78.5 Hyperlipidemia, unspecified; E66.01 Morbid (severe) obesity due to excess calories; Z68.38 Body mass index [BMI] 38.0-38.9, adult ==

== ENCOUNTER 2025-07-28 02:28 | Day surgery (SDC) | payer OTHER | END 2025-07-28 23:00 | disposition home or self-care (01) | LOC: WOUND 02:28 | DX: I89.0 Lymphedema, not elsewhere classified (principal); I87.2 Venous insufficiency (chronic) (peripheral); Z87.828 Personal history of other (healed) physical injury and trauma | CPT/HCPCS: G0463 ==

== ENCOUNTER 2025-08-03 08:36 | Day surgery (SDC) | payer OTHER ==
[~2025-08-03 08:36] MED LIST changes: +CIPR500 PO
== END 2025-08-03 22:00 | disposition home or self-care (01) ==
LOC: WOUND 08:36
DX: I87.312 Chronic venous hypertension (idiopathic) with ulcer of left lower extremity (principal); L97.822 Non-pressure chronic ulcer of other part of left lower leg with fat layer exposed; I87.2 Venous insufficiency (chronic) (peripheral); I89.0 Lymphedema, not elsewhere classified; E78.5 Hyperlipidemia, unspecified; E66.01 Morbid (severe) obesity due to excess calories; Z68.38 Body mass index [BMI] 38.0-38.9, adult; L03.116 Cellulitis of left lower limb; E03.9 Hypothyroidism, unspecified; Z87.39 Personal history of other diseases of the musculoskeletal system and connective tissue; Z86.19 Personal history of other infectious and parasitic diseases; Z79.899 Other long term (current) drug therapy; Z88.5 Allergy status to narcotic agent; Z91.048 Other nonmedicinal substance allergy status
CPT/HCPCS: 99283; A9270

== ENCOUNTER 2025-08-10 01:27 | Day surgery (SDC) | payer OTHER ==
[2025-08-10] MEDS ORDERED: Lidocaine HCl 4% Cream 5 GM ONE (10:39)
== END 2025-08-10 23:00 | disposition home or self-care (01) ==
LOC: WOUND 01:27
DX: I87.312 Chronic venous hypertension (idiopathic) with ulcer of left lower extremity (principal); L97.822 Non-pressure chronic ulcer of other part of left lower leg with fat layer exposed; I89.0 Lymphedema, not elsewhere classified; I87.2 Venous insufficiency (chronic) (peripheral); E78.5 Hyperlipidemia, unspecified; E66.01 Morbid (severe) obesity due to excess calories; Z68.38 Body mass index [BMI] 38.0-38.9, adult
CPT/HCPCS: A9270

== ENCOUNTER 2025-08-18 00:41 | Day surgery (SDC) | payer OTHER ==
[2025-08-18] MEDS ORDERED: Lidocaine HCl 4% Cream 5 GM ONE (10:16)
== END 2025-08-18 23:00 | disposition home or self-care (01) ==
LOC: WOUND 00:41
DX: I87.312 Chronic venous hypertension (idiopathic) with ulcer of left lower extremity (principal); L97.821 Non-pressure chronic ulcer of other part of left lower leg limited to breakdown of skin; I89.0 Lymphedema, not elsewhere classified; I87.2 Venous insufficiency (chronic) (peripheral); E78.5 Hyperlipidemia, unspecified; E66.01 Morbid (severe) obesity due to excess calories; Z68.38 Body mass index [BMI] 38.0-38.9, adult
CPT/HCPCS: A9270

== ENCOUNTER 2025-08-25 01:46 | Day surgery (SDC) | payer OTHER | END 2025-08-25 23:00 | disposition home or self-care (01) | LOC: WOUND 01:46 | DX: I87.312 Chronic venous hypertension (idiopathic) with ulcer of left lower extremity (principal); L97.822 Non-pressure chronic ulcer of other part of left lower leg with fat layer exposed; I89.0 Lymphedema, not elsewhere classified; I87.2 Venous insufficiency (chronic) (peripheral); E78.5 Hyperlipidemia, unspecified; E66.01 Morbid (severe) obesity due to excess calories; Z68.38 Body mass index [BMI] 38.0-38.9, adult ==

== ENCOUNTER 2025-09-08 01:22 | Day surgery (SDC) | payer OTHER | END 2025-09-08 22:47 | disposition home or self-care (01) | LOC: WOUND 01:22 | DX: I89.0 Lymphedema, not elsewhere classified (principal); I87.2 Venous insufficiency (chronic) (peripheral); E78.5 Hyperlipidemia, unspecified; E66.01 Morbid (severe) obesity due to excess calories; Z68.38 Body mass index [BMI] 38.0-38.9, adult | CPT/HCPCS: A6196 ==

== ENCOUNTER 2025-09-15 00:47 | Day surgery (SDC) | payer OTHER | END 2025-09-15 23:00 | disposition home or self-care (01) | LOC: WOUND 00:47 | DX: I89.0 Lymphedema, not elsewhere classified (principal); I87.2 Venous insufficiency (chronic) (peripheral); L97.322 Non-pressure chronic ulcer of left ankle with fat layer exposed; L97.822 Non-pressure chronic ulcer of other part of left lower leg with fat layer exposed ==

== ENCOUNTER 2025-09-22 00:39 | Day surgery (SDC) | payer OTHER ==
[2025-09-22] MEDS ORDERED: Miconazole Nitrate 2% 85 GM PWD ONE (10:06)
== END 2025-09-22 22:47 | disposition home or self-care (01) ==
LOC: WOUND 00:39
DX: I89.0 Lymphedema, not elsewhere classified (principal); I87.312 Chronic venous hypertension (idiopathic) with ulcer of left lower extremity; L97.822 Non-pressure chronic ulcer of other part of left lower leg with fat layer exposed; I87.2 Venous insufficiency (chronic) (peripheral); E78.5 Hyperlipidemia, unspecified; E66.01 Morbid (severe) obesity due to excess calories; Z68.38 Body mass index [BMI] 38.0-38.9, adult
CPT/HCPCS: A9270

== ENCOUNTER 2025-09-29 01:03 | Day surgery (SDC) | payer OTHER ==
[2025-09-29] MEDS ORDERED: Miconazole Nitrate 2% 85 GM PWD ONE (09:33)
== END 2025-09-29 22:58 | disposition home or self-care (01) ==
LOC: WOUND 01:03
DX: I89.0 Lymphedema, not elsewhere classified (principal); L97.322 Non-pressure chronic ulcer of left ankle with fat layer exposed; L97.822 Non-pressure chronic ulcer of other part of left lower leg with fat layer exposed; E78.5 Hyperlipidemia, unspecified
CPT/HCPCS: A9270

== ENCOUNTER 2025-10-04 19:11 | Emergency (ER) | payer OTHER ==
[~2025-10-04] VITALS: Ht 167.6 cm; Wt 113.4 kg
[2025-10-04] MEDS ORDERED: DiphenhydrAMINE HCl 50 MG/ML 1ML Vial IV ONE (19:50)
[2025-10-04] MEDS ORDERED: Metoclopramide HCl 5MG / ML 2ML Vial IV ONE (19:50)
[2025-10-04 19:55] LABS: BASOPHILS ABSOLUTE AUTO 0.04 K/mm3 (0.00-0.23); BASOPHILS PERCENT AUTO 1 % (0-2); EOSINOPHILS ABSOLUTE AUTO 0.07 K/mm3 (0.00-0.68); EOSINOPHILS PERCENT AUTO 1 % (0-6); Hematocrit 41.4 % (33.0-51.0); Hemoglobin 13.6 g/dL (11.5-16.0); IMMATURE GRAN ABSOLUTE AUTO 0.02 K/mm3 (0.00-0.10); IMMATURE GRAN PERCENT AUTO 0 % (0-1); LYMPHOCYTES ABSOLUTE AUTO 0.95 K/mm3 (0.84-5.20); LYMPHOCYTES PERCENT AUTO 12 % (21-46); MONOCYTES ABSOLUTE AUTO 0.58 K/mm3 (0.16-1.47); MONOCYTES PERCENT AUTO 7 % (4-13); Mean Corpuscular HGB Conc 32.9 g/dL (31.5-36.5); Mean Corpuscular Volume 95 fL (80-100); NEUTROPHILS ABSOLUTE AUTO 6.20 K/mm3 (1.96-9.15); NEUTROPHILS PERCENT AUTO 79 % (41-73); NRBC ABSOLUTE 0.00 K/mm3 (0.00-0.02); NRBC Auto 0.0 /100 WBC (0.0-0.2); Platelet Count 202 K/mm3 (150-400); RDW Coefficient Variation 12.9 % (11.7-14.2); RDW Standard Deviation 45.3 fL (35.1-46.3)
[2025-10-04 20:17] LABS: Alanine Aminotransfer (ALT/SGP 31.0 U/L (12-78); Albumin, Blood 3.2 g/dL (3.4-5.0); Albumin/Globulin Ratio 0.8 (0.8-1.8); Anion Gap 9.0 mmol/L (3-11); Aspartate Aminotrans (AST/SGOT 30.0 U/L (12-37); Bilirubin, Total 0.4 mg/dL (0.1-1.0); Blood Urea Nitrogen 19.0 mg/dL (8-24); CO2, Blood 24.0 mmol/L (21-32); Calcium, Blood 8.9 mg/dL (8.5-10.1); Chloride, Blood 112.0 mmol/L (98-108); Creatinine, Blood 0.5 mg/dL (0.40-1.00); Globulin, Blood 3.9 g/dL (2.2-4.0); Glucose, Blood 111.0 mg/dL (70-99); Potassium, Blood 3.5 mmol/L (3.5-5.5); Sodium, Blood 141.0 mmol/L (136-145); Total Protein, Blood 7.1 g/dL (6.4-8.2)
[2025-10-04] MEDS ORDERED: BENADRYL25 M1 PO (21:28)
[2025-10-04] MEDS ORDERED: METO10 PO (21:28)
[2025-10-04 21:52] LABS: Source, Urine Clean Catch
[2025-10-04 21:55] LABS: Bilirubin, Urine Neg (Neg); Glucose Qualitative, Urine Neg (Neg); Ketones, Urine 2+ (Neg); Leukocyte Esterase, Urine Neg (Neg); Protein, Urine 2+ (Neg); Specific Gravity, Urine 1.020 (1.003-1.022); Urobilinogen, Urine NORM (Normal)
[2025-10-04 22:04] LABS: Color, Urine Pale Yellow (P-Yellow)
[2025-10-04 22:05] LABS: Red Blood Cells, Urine 0-2 /hpf (0-2); White Blood Cells, Urine 0-2 /hpf (0-5)
[2025-10-05 00:14] VITALS: BP 156/85
== END 2025-10-05 00:26 | disposition home or self-care (01) ==
LOC: ER 19:11
PROVIDERS: Physician Assistant
DX: R11.2 Nausea with vomiting, unspecified (principal); R14.0 Abdominal distension (gaseous); R10.10 Upper abdominal pain, unspecified; Z88.5 Allergy status to narcotic agent; Z79.2 Long term (current) use of antibiotics
CPT/HCPCS: 74018; 80053; 81001; 83690; 85025; 93005; 93010; 96374; 96375; 99284-25; J1200; J2765

== ENCOUNTER 2025-10-06 01:50 | Day surgery (SDC) | payer OTHER ==
[~2025-10-06 01:50] MED LIST changes: +BENADRYL25 M1 PO; +METO10 PO
[2025-10-06] MEDS ORDERED: Lidocaine HCl 4% Cream 5 GM ONE (10:00)
== END 2025-10-06 22:00 | disposition home or self-care (01) ==
LOC: WOUND 01:50
DX: I89.0 Lymphedema, not elsewhere classified (principal); I87.312 Chronic venous hypertension (idiopathic) with ulcer of left lower extremity; L97.822 Non-pressure chronic ulcer of other part of left lower leg with fat layer exposed; I87.2 Venous insufficiency (chronic) (peripheral); E78.5 Hyperlipidemia, unspecified; E66.01 Morbid (severe) obesity due to excess calories; Z68.38 Body mass index [BMI] 38.0-38.9, adult
CPT/HCPCS: A9270

== ENCOUNTER 2025-10-13 02:28 | Day surgery (SDC) | payer OTHER ==
[2025-10-13] MEDS ORDERED: Miconazole Nitrate 2% 85 GM PWD ONE (10:16)
== END 2025-10-13 23:30 | disposition home or self-care (01) ==
LOC: WOUND 02:28
DX: I89.0 Lymphedema, not elsewhere classified (principal); I87.2 Venous insufficiency (chronic) (peripheral); E78.5 Hyperlipidemia, unspecified; E66.01 Morbid (severe) obesity due to excess calories; Z68.38 Body mass index [BMI] 38.0-38.9, adult
CPT/HCPCS: A9270

== ENCOUNTER 2025-10-20 02:26 | Day surgery (SDC) | payer OTHER | END 2025-10-20 23:33 | disposition home or self-care (01) | LOC: WOUND 02:26 | DX: I89.0 Lymphedema, not elsewhere classified (principal); I87.312 Chronic venous hypertension (idiopathic) with ulcer of left lower extremity; L97.822 Non-pressure chronic ulcer of other part of left lower leg with fat layer exposed; I87.2 Venous insufficiency (chronic) (peripheral); E78.5 Hyperlipidemia, unspecified; E66.01 Morbid (severe) obesity due to excess calories; Z68.38 Body mass index [BMI] 38.0-38.9, adult ==

== ENCOUNTER 2025-11-10 11:15 | Day surgery (SDC) | payer OTHER ==
[2025-11-10] MEDS ORDERED: Lidocaine HCl 4% Cream 5 GM ONE (11:20)
== END 2025-11-10 23:00 | disposition home or self-care (01) ==
LOC: WOUND 11:15
DX: I89.0 Lymphedema, not elsewhere classified (principal); I87.312 Chronic venous hypertension (idiopathic) with ulcer of left lower extremity; L97.322 Non-pressure chronic ulcer of left ankle with fat layer exposed; E78.5 Hyperlipidemia, unspecified
CPT/HCPCS: A9270